=== PATIENT | female | born 1960 | race Caucasian/White ===

== ENCOUNTER 2017-03-03 16:00 | Outpatient (RCR) | payer MEDICARE, SELFPAY ==
--- NOTE | 2017-01-17 17:13 | HP.PTEVAL ---
Patient's Visit Information KAYLEE MANTILLA is a 56 year old F referred to Physical Therapy by Out of Town Doctor LESLEE MONIQUE with a diagnosis of Sceleroderma. 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 Pt reports she was dx'd just last year. Pt reports in 2003-, she began to notice difficulty with standing and walking secondary to LBP. Pt has been on dialysis for over 23 years due to kidney disease. Pt reports she would like to get on a transplant list. She was told she had to first stop smoking, she had to move around better, and she had to see a service vehicle operator. Pt reports now her goal is to be able to walk better and feel better overall. Pt reports sleep diff secondary to pain. Pt notes good sensation in her LE's. overall body pain this date is 08/16 - Pain overall body pain Pain Intensity (Out of 10): 4 Pain Intensity Range: 4 - Objective Neuro: B LE sensation is WNL to light touch. B pat tendon reflex= 1/3. Gait: Pt is able to ambulate approximatly 120' until feeling exhausted and needing to sit. LE MMT: B LE's are grossly 4+/5 throughout. B UE's are much weaker 3/5. Stairs: Pt was able to negotiate 2 flights of stairs until needing to rest. - Goals Goal 1:: Increase B UE and LE strength x 1 grade to aid with Icreasing ease with stairs Goal Time Frame: 4-6 Weeks Goal 2:: Pt will be able to negotiate 1 flight of stairs x 2 reps to aid with increasing I in community Goal Time Frame: 4-6 Weeks Goal 3:: Pt will be able to ambulate 340 feet to aid with promoting community ambulation Goal Time Frame: 4-6 Weeks Goal 4:: I with HEP Goal Time Frame: 4-6 Weeks - Rehabilitation Potential Physical Therapy Diagnosis: B UE and LE weakness and limited mobility secondary to debilitation from scelaroderma Rehabilitation Potential: Good - Anticipated Interventions Patient/Client Instruction: Educate patient on: Condition, Plan of Care For the Purpose of:: To improve self management Therapeutic Exercise to Include: Strength training, Endurance training, Balance training, Gait and locomotor training, Dynamic Lumbar Stabilization, Scapular Strength/Stabilization For the Purpose of:: To decrease pain, To improve muscle performance and motor function, To increase tolerance to activity/condition/position Cryotherapy (ice pack, ice massage): Yes For the Purpose of:: To decrease pain Thank you for the opportunity to evaluate your patient. For Medicare and Medicare HMO plans, please review the plan of care and approve it. It will need to be FAXED BACK to us at [phone] for Medicare purposes. Please let me know if there are questions or concerns regarding this plan of care. Physician Signature: Date:
--- NOTE | 2017-06-02 16:34 | HP.PT.NRP ---
HP - Discharge Summary (1) - Patient Information KAYLEE MANTILLA was seen in my office for initial evaluation on 01/17/17. The following Plan of Care was established for this patient: Initial Frequency: 2-3x /Week Initial Duration: 4-6 Weeks - Anticipated Interventions Patient/Client Instruction: Educate patient on: Condition, Plan of Care For the Purpose of:: To improve self management Therapeutic Exercise to Include: Strength training, Endurance training, Balance training, Gait and locomotor training, Dynamic Lumbar Stabilization, Scapular Strength/Stabilization For the Purpose of:: To decrease pain, To improve muscle performance and motor function, To increase tolerance to activity/condition/position Cryotherapy (ice pack, ice massage): Yes For the Purpose of:: To decrease pain This patient was last seen in our office . Pertinent comments regarding their Physical therapy will appear below: Pt was treated for overall debility for 13 visits through the date of 03/03/17. Pt has not returned through todays date, and is therefore discontinued at this time. At this point I will be discontinuing this patient from physical therapy. I would be happy to see this patient again in the future if found appropriate by the physician. Thank you! Luis A Siddiqi, PT,
== END 2017-03-03 19:00 | disposition home or self-care (01) ==
LOC: PT 16:00
DX: L94.0 Localized scleroderma [morphea] (principal); R20.8 Other disturbances of skin sensation; N18.6 End stage renal disease; G89.4 Chronic pain syndrome
CPT/HCPCS: 97110; 97163; 97530; G8978; G8979

== ENCOUNTER → 2017-06-10 14:08 | Outpatient (CLI) | payer MEDICARE, SELFPAY ==
[2017-06-10 13:46] VITALS: BP 90/52; BMI 25.6
--- NOTE | 2017-06-10 14:11 | RAD_ITS ---
STUDY: X-RAY CHEST REASON FOR EXAM: Female, 56 years old. Severe shortness of breath and dyspnea. TECHNIQUE: PA and lateral views of the chest. COMPARISON: None. FINDINGS: A left-sided double catheter is in place. The tip is in the right atrium. A vascular stent is seen in the left apex. Hyperinflation. Mild degree of vascular congestion and CHF. There is no demonstrated pleural abnormality. Sternal cerclage wires are present from a prior sternotomy. Prior mitral valve replacement. Normal mediastinum and zunilda. Normal visualized pulmonary arteries. There is atherosclerotic calcification of the aortic arch with tortuosity. There is demineralization of the osseous structures. Increased kyphosis. Normal visualized ribs, clavicles, and shoulders. There is no demonstrated abnormality of the visualized soft tissue structures of the upper abdomen. RAD/Chest PA and Lateral IMPRESSION: Vascular congestion and mild CHF. Electronically Signed: Ben Small MD at 14:41 EST Tel [phone], Service support ,
== END ==
PROVIDERS: Visit Provider Physician Assistant Surgical
DX: R06.02 Shortness of breath (principal); R06.00 Dyspnea, unspecified; R09.89 Other specified symptoms and signs involving the circulatory and respiratory systems
CPT/HCPCS: 71046

== ENCOUNTER 2018-06-28 12:12 | Emergency (ER) | payer MEDICARE, SELFPAY ==
[2017-06-10 13:46] VITALS: BMI 25.6
[2018-06-28 12:16] VITALS: BP 107/49; PULSE 79; RESP 18; TEMP 36.6; O2SAT 100; BMI 25.2
--- NOTE | 2018-06-28 12:26 | ED.VISSUMM ---
- ER Visit Summary Date of Service: 06/28/18 Chief Complaint: Vomiting blood History of Present Illness: The patient is a 57 F history of recent double bypass and mitral valve replaced with biological valve at [facility] at the end of May. Also has a history of coronary disease and pacemaker. History of end-stage renal disease and was dialyzed today. Patient is on Coumadin. States she is had nausea vomiting this morning of coffee-ground material. Also states she has black stool. Denies any bright red blood. She denies any history of prior GI bleeds. She states she threw up coffee-ground material on the first episode of vomiting. Physical Examination: Middle-aged female. Vital signs are stable and afebrile. Initial blood pressure 107/49. HEENT exam unremarkable. Neck nontender. Lungs clear to auscultation bilaterally. Heart regular rhythm no appreciable murmur at this time. Abdomen soft. Nondistended. Normal bowel sounds no peritoneal signs. Gastric or right upper quadrant tenderness. No signs of obstruction. Chest wall well-healing sternotomy incision and left chest wall pacemaker incision. Both are dry and clean. Patient is moving all 4 extremities. She has trace edema on both legs. Right upper arm dialysis shunt has a thrill. Neurologically she is awake and alert. Test Results: White count 8. Hemoglobin is 6.5. I spoke to 1 of the physicians at and the patient's hemoglobin prior to discharge there on June 20 was 7.2. Gap of 9. Creatinine 3.17 she is a dialysis patient. Liver enzymes unremarkable. Lipase normal. She is on Coumadin her INR is 2.0. Emergency Department Course and Treatment: Patient treated with IV Zofran for nausea. IV for Protonix for suspected upper GI bleed. She will be typed and screened for blood if necessary for transfusion. Discussed with patient and she does not want to be transfused unless absolutely necessary. Also with her recent hemoglobin is 7.2 he does not seem to be a significant drop at this time we can hold off. Treatment Plan: I spoke to the transfer line, nephrology and ICU and eventually the emergency department at . Due to their bed status the patient be transferred to their emergency department. Disposition: Admitted Impression: Acute upper GI bleed anticoagulated on Coumadin Status post CABG and biological valve replacement History of end-stage renal disease with dialysis Acute on chronic anemia Anticoagulated on Coumadin This note was generated with Mamad[employer] dictation software. It may contain incorrect words, spelling, and punctuation that were not noted in review of the chart prior to signing ED Disposition - Plan for ED Patient: Referrals: NOT,DEFINED [NON-STAFF] -
[2018-06-28] MEDS: Ondansetron 4 MG/2 ML Vial IV ×2 (13:29→16:09)
[2018-06-28 13:37] LABS: Absolute Lymphocyte Count 1.22 X10^3/ul (0.83-4.51); Absolute Neutrophil Count 6.3 X10^3/uL (2.0-7.7); Basophil# 0.04 X10^3/uL; Basophil% 0.5 % (0-1); Eosinophil# 0.02 X10^3/uL; Eosinophils% 0.2 % (0-5); Hematocrit 21.8 % (37-47); Hemoglobin 6.5 g/dl (12.0-15.0); Lymphocyte # 1.22 X10^3/ul (4.0); Lymphocyte % 14.5 % (19-41); Mean Corp Hgb Conc 29.8 g/gl (32-36); Mean Corpuscular Hgb 31.9 pg (27.0-32.0); Mean Corpuscular Volume 106.9 fL (81-99); Mean Platelet Vol. 9.6 fl (6.2-12.0); Monocyte# 0.82 X10^3/uL; Monocyte% 9.8 % (0-10); Neutrophil # 6.29 X10^3/uL (2.7-7.7); Neutrophil % 74.8 % (47-70); Platelet Count 261 K/mm3 (150-450); Prothrombin Time (Protime)PT. 22.7 SECONDS (11.7-14.9); RBC Distribution Width CV 19.1 % (11.6-14.6); RBC Distribution Width SD 73.3 fl (35.1-43.9); Red Blood Count 2.04 M/mm3 (4.2-5.4); White Blood Count 8.4 K/mm3 (4.4-11.0)
[2018-06-28 13:43] LABS: Differential Indicated SCAN CRITERIA MET; POSITIVE COUNT NO; POSITIVE DIFFERENTIAL NO; POSITIVE MORPHOLOGY YES
[2018-06-28 13:47] LABS: AST(SGOT) 17 U/L (15-37); Alanine Aminotransfer ALT/SGPT 16 U/L (13-56); Albumin, Serum 2.5 g/dL (3.2-5.0); Alkaline Phosphatase 197 U/L (45-117); Anion Gap 9 (5-15); BUN 19 mg/dL (7-18); Bilirubin, Direct 0.24 mg/dL (0.00-0.30); Calcium,Total 7.2 mg/dL (8.5-10.1); Chloride 96 mmol/L (98-107); Creatinine, Serum 3.17 mg/dL (0.55-1.02); EST Glomerular Filtration Rate 16 mL/min (>60); Est Glom Filt Rate - Afr Amer 19 mL/min (>60); Estimated Creatinine Clearance 18.55 ml/min; Globulin 4.1 g/dL (2.2-4.2); Glucose 97 mg/dL (74-106); Lipase 179 U/L (73-393); Potassium 3.6 mmol/L (3.5-5.1); Protein, Total 6.6 g/dL (6.4-8.2); Sodium Level 138 mmol/L (136-145)
--- NOTE | 2018-06-28 14:17 | ED.RN ---
[facility] transfer line contacted.
--- NOTE | 2018-06-28 16:04 | CM.ED ---
Social Work Note Met with pt's brother who has accompanied her to the ED today. Pt recently underwent cardiac surgeries at [facility] and will be transferring back there today. Upon her discharge from it was recommended that she go to rehab and her brother states that at the time she declined as she had negative connotation associated with going to a snf. States that they were going to have her come here and then all of a sudden could not take as she was on dialysis. Explained that unfortunately, to this marketing underwriter's knowledge, that is an overall policy that TCU maintains regarding the dialysis. Pt's brother states he understands, but it was unfair of them to dangle it in front of us and then take it away. Educate to alternative SNFs and provide information on the patient advocate per pt's request. No further needs at this time. Kaia Berrios, [employer], DORIAN
[2018-06-28 16:12] VITALS: BP 101/66; PULSE 82; RESP 17; O2SAT 98
[2018-06-28] MEDS: proMETHazine 25 MG/ML Syringe 12.5 MG IV (17:34)
[2018-06-28 18:18] VITALS: BP 103/76; BP 96/58; PULSE 78; RESP 20; O2SAT 96
== END 2018-06-28 18:24 | disposition home or self-care (01) ==
LOC: ED 13:09
PROVIDERS: Emergency Provider Emergency Medicine
DX: K92.2 Gastrointestinal hemorrhage, unspecified (principal); D64.9 Anemia, unspecified; N18.6 End stage renal disease; I25.10 Atherosclerotic heart disease of native coronary artery without angina pectoris; Z72.0 Tobacco use; Z99.2 Dependence on renal dialysis; Z79.82 Long term (current) use of aspirin; Z79.01 Long term (current) use of anticoagulants; Z79.899 Other long term (current) drug therapy; Z95.2 Presence of prosthetic heart valve; Z95.1 Presence of aortocoronary bypass graft
CPT/HCPCS: 80048; 80076; 83690; 85025; 85610; 86850; 86900; 86920; 86922; 96365; 96366; 96375; 96376; 99285; J7030; A4216; J2405; J3490

== ENCOUNTER 2018-08-04 12:15 | Outpatient (RCR) | payer MEDICARE, SELFPAY ==
[2018-07-07 11:37] VITALS: BP 147/90; PULSE 80; RESP 16; TEMP 37; BMI 23.3
[2018-07-07 17:24] LABS: M R Staph aureus DNA By PCR Negative (Negative); Probe Check PASS; Specimen Processing Control PASS; Staph aureus DNA By PCR NEGATIVE (Negative)
--- NOTE | 2018-07-07 17:24 | PCM.WC.HP ---
(1) Stage II pressure ulcer of left buttock Status: Chronic Current Visit: Yes Code(s): L89.322 - Pressure ulcer of left buttock, stage 2 (2) Nonhealing nonsurgical wound with fat layer exposed Status: Chronic Current Visit: Yes Code(s): T14.8XXA - Other injury of unspecified body region, initial encounter (3) Dependence on renal dialysis Status: Chronic Current Visit: Yes Code(s): Z99.2 - Dependence on renal dialysis (4) CAD (coronary artery disease), autologous vein bypass graft Status: Chronic Current Visit: Yes Qualifiers: Associated angina: angina presence unspecified Qualified Code(s): I25.810 - Atherosclerosis of coronary artery bypass graft(s) without angina pectoris Code(s): I25.810 - Atherosclerosis of coronary artery bypass graft(s) without angina pectoris (5) H/O mitral valve replacement Status: Chronic Current Visit: Yes Code(s): Z95.2 - Presence of prosthetic heart valve (6) Current smoker Status: Chronic Current Visit: Yes Code(s): F17.200 - Nicotine dependence, unspecified, uncomplicated (7) H/O lung transplant Status: Chronic Current Visit: Yes Code(s): Z94.2 - Lung transplant status History of Present Illness Date of Service: 07/07/18 Chief Complaint: ulcer of left buttock and nonhealing surgical wound right leg History of Wound: Manuel is a 57 yo female who is on chronic dialysis and s/p recent CABG x 1 and mitral valve replacement that is here today for evaluation of a stage 2 pressure ulcer of her left buttock and nonhealing surgical wound of right medial thigh. She underwent CABG and mitral valve replacement in the beginning of May and developed a pressure ulcer of her left buttock while hospitalized. She has not been using anything on the ulcer. She also is concerned about the surgical site where her vein was harvested for her bypass graft. She follows up with the surgeon at the end of the month. She is on chronic dialysis due to nephrectomies. She also has a h/o lung transplant. She denies any fever, chills or erythema or odor. Past Medical History Past Medical History: Chronic Problems (Last Reviewed 06/10/17 @ 13:50 by Mel Peralta) Stage II pressure ulcer of left buttock (Chronic) Nonhealing nonsurgical wound with fat layer exposed (Chronic) Dependence on renal dialysis (Chronic) CAD (coronary artery disease), autologous vein bypass graft (Chronic) H/O mitral valve replacement (Chronic) Current smoker (Chronic) H/O lung transplant (Chronic) Surgical History: coronary bypass surgery, - - lung transplant, nephrectomy, A-V fistula for dialysis Allergies/Adverse Reactions: Allergies diazepam [From Valium] Allergy (Verified 06/10/17 13:47) Unknown Gadolinium-MRI Contrast Medium Allergy (Verified 06/10/17 13:47) Unknown vancomycin Allergy (Verified 06/28/18 12:16) Unknown IV DYE Allergy (Uncoded 06/28/18 12:16) Unknown Home Medications: Ambulatory Orders Medication Instructions Recorded aspirin 81 mg chewable tablet 81 mg PO ONCE 06/10/17 gabapentin 100 mg capsule 200 mg PO QHS 90 Days #180 06/10/17 Atorvastatin Calcium 10 mg PO DAILY 06/28/18 Mycophenolate Mofetil [Cellcept] 500 mg PO BID 06/28/18 Pantoprazole Sodium [Protonix] 40 mg PO DAILY 07/07/18 Sevelamer Carbonate [Renvela] 3,200 mg BC TID 07/07/18 Vit B Cplx C No.13/Folic AC/D3 1 each PO DAILY 07/07/18 [Nephrocaps Qt Tablet] - Family History Maternal No pertinent history Paternal No pertinent history Lives: Alone Smoking Status: Current every day smoker Tobacco Use: Cigarettes Alcohol: None Drugs: None Review of Systems Constitutional: Denies: Chills, Fever, Weight Change Eyes: Denies: Pain, Vision Change HEENT: Denies: Difficulty Hearing, Difficulty Swallowing, Sinus Congestion Cardiovascular: Denies: Chest Pain, Palpitations Respiratory: Denies: Cough, Shortness of Breath Gastrointestinal: Denies: Diarrhea, Nausea, Vomiting Genitourinary: Denies: Dysuria, Hematuria Musculoskeletal: Reports: Leg Pain Skin: Reports: Wounds Hematologic/ Lymphatic: Denies: Easy Bruising, Easy Bleeding - Physical Exam Vital Signs Temp Pulse Resp BP 98.6 F 80 16 147/90 H 07/07/18 11:37 07/07/18 11:37 07/07/18 11:37 07/07/18 11:37 General: Alert, Oriented x3, Cooperative, No apparent distress HEENT: Atraumatic, Normocephalic Oral: Moist Mucosa Neck: Supple Lungs: Clear to auscultation Cardiovascular: Regular rate, Regular Rhythm Abdomen: Soft, Non Tender Extremities: Edema Skin: Ulcer/ Wound Wound Measurements and Assessment - Nurse 1 - General Ulcer Measurement Start: 07/07/18 11:34 Freq: Status: Active Protocol: Activity Type Activity Date Activity User E-Sign Co-Sign Detail Recorded Client Recorded Date Recorded By Document 07/07/18 11:37 [facility] [id number] 07/07/18 11:50 [facility] 07/07/18 11:37 Wound Center Nurse 1 [Ulcer Assessment] #1- LT BUTTOCK -Combined with other wound No -Current Size (cm) - Length 1.5 -Current Size (cm) - Width 2 -Current Size (cm) - Depth 0.1 -Total Square Cm 3.0 -Date of Last Picture (Recall this 07/07/18 field) -Photo Taken Yes -Epithelialization None Present -Tunneling No -Undermining/Tunneling No -Circular Undermining No -Exudate Amt None Present -Wound Margin Distinct, Outline Attached -Granulation Amt None Present (0 %) -Slough/Fibrin Yes -Necrosis Amt Large (67-100%) -Necrotic Tissue Type Adherent Slough -Structure Exposed N/A -Texture (Natty-wound Skin Appearance) Scarring -Moisture (Natty-wound Skin Appearance Assessed ) -Color (Natty-wound Skin Appearance) Assessed Erythema -Temperature (Natty-wound Skin No Abnormality Appearance) (Pt Warm) -Tenderness on Palpation (Natty-wound No Skin Appearance) -Ulcer Cleansing Rinsed/ Irrigated with Saline -Foul Odor after Cleansing No -Anesthetic Used 5% Lidocaine Gel WC - Nurse 2 - General Ulcer CM Notes Start: 07/07/18 11:34 Freq: Status: Active Protocol: Activity Type Activity Date Activity User E-Sign Co-Sign Detail Recorded Client Recorded Date Recorded By Document 07/07/18 12:54 DV [id number] 07/07/18 13:02 DV 07/07/18 12:54 Wound Center Nurse 2 [Procedure/Treatment] #2 [facility] RLE -Time 12:57 -Correct Patient Yes -Correct Side, Site, Position Yes -Correct Procedure Yes -Procedure Performed Yes -Type of Procedure Debridement -Clinical Debridement Subcutaneous -Post Debridement Size (cm) - Length 6.5 -Post Debridement Size (cm) - Width 0.6 -Post Debridement Size (cm) - Depth 0.1 -Total Square Cm 3.90 -Ulcer Cleansing Rinsed/ Irrigated with Saline -Foul Odor after Cleansing No -Bioengineered Tissue No -Bleeding Controlled with Pressure -Offloading No -Treatment Response Procedure Tolerated Well #1- LT BUTTOCK -Time 12:56 -Correct Patient Yes -Correct Side, Site, Position Yes -Correct Procedure Yes -Procedure Performed Yes -Type of Procedure Debridement -Clinical Debridement Subcutaneous -Post Debridement Size (cm) - Length 1.6 -Post Debridement Size (cm) - Width 1.8 -Post Debridement Size (cm) - Depth 0.1 -Total Square Cm 2.88 -Wound/Ulcer Outcome Not Healed -Ulcer Cleansing Rinsed/ Irrigated with Saline -Foul Odor after Cleansing No -Bioengineered Tissue No -Offloading No -Treatment Response Procedure Tolerated Well [See Physician Procedure note for Specifics] Pain Scale: 0-10 Numeric [Pain] -Is Patient Pain Free? Yes Psych/Mental Status: Normal Affect, Appropriate Debridement Note Post-Debridement Measurements/Treatment WC - Nurse 2 - General Ulcer CM Notes Start: 07/07/18 11:34 Freq: Status: Active Protocol: Activity Type Activity Date Activity User E-Sign Co-Sign Detail Recorded Client Recorded Date Recorded By Document 07/07/18 12:54 DV [id number] 07/07/18 13:02 DV 07/07/18 12:54 Wound Center Nurse 2 #2 [facility] RLE -Time 12:57 -Correct Patient Yes -Correct Side, Site, Position Yes -Correct Procedure Yes -Procedure Performed Yes -Type of Procedure Debridement -Clinical Debridement Subcutaneous -Post Debridement Size (cm) - Length 6.5 -Post Debridement Size (cm) - Width 0.6 -Post Debridement Size (cm) - Depth 0.1 -Total Square Cm 3.90 -Ulcer Cleansing Rinsed/ Irrigated with Saline -Foul Odor after Cleansing No -Bioengineered Tissue No -Bleeding Controlled with Pressure -Offloading No -Treatment Response Procedure Tolerated Well #1- LT BUTTOCK -Time 12:56 -Correct Patient Yes -Correct Side, Site, Position Yes -Correct Procedure Yes -Procedure Performed Yes -Type of Procedure Debridement -Clinical Debridement Subcutaneous -Post Debridement Size (cm) - Length 1.6 -Post Debridement Size (cm) - Width 1.8 -Post Debridement Size (cm) - Depth 0.1 -Total Square Cm 2.88 -Wound/Ulcer Outcome Not Healed -Ulcer Cleansing Rinsed/ Irrigated with Saline -Foul Odor after Cleansing No -Bioengineered Tissue No -Offloading No -Treatment Response Procedure Tolerated Well Pain Scale: 0-10 Numeric Is Patient Pain Free? Yes Wound debrided: medial RLE Laterality: Right No debridement was completed today - Additional Wound Wound debrided: left buttock Laterality: Left Wound Grade/Stage: Stage 2 Type of Debridement: Excisional debridement Anesthesia Used: 4% Lidocaine Solution, 5% Lidocaine Gel Depth: Down to and including healthy tissue, in the subcutaneous layer Percentage of wound debrided: 100 Instrument Used: 5mm curette Tissue Removed: yellow slough, devitalized tissue Severity: Fat Layer Exposed Amount of bleeding with debridement: Mild Bleeding Controlled with: Compression and gauze Patient tolerated procedure: Patient tolerated procedure well Assessment/Plan Active Problems (Last Reviewed 06/10/17 @ 13:50 by Mel Peralta) Stage II pressure ulcer of left buttock (Chronic) Nonhealing nonsurgical wound with fat layer exposed (Chronic) Dependence on renal dialysis (Chronic) CAD (coronary artery disease), autologous vein bypass graft (Chronic) H/O mitral valve replacement (Chronic) Current smoker (Chronic) H/O lung transplant (Chronic) Assessment: stage 2 pressure ulcer left buttock. nonhealing surgical wound medial right LE Plan: Manuel's wound/ulcer were evaluated and debrided today. Wound culture of her left buttock was taken and will treat based on results. Will treat her wounds and ulcer with Sammi. Discussed offloading of her buttocks and increased protein intake to facilitate healing. Encouraged smoking cessation. F/U in 1 week.
--- NOTE | 2018-07-07 17:45 | HP.PCM_ITS ---
(1) Stage II pressure ulcer of left buttock Status: Chronic Current Visit: Yes Code(s): L89.322 - Pressure ulcer of left buttock, stage 2 (2) Nonhealing nonsurgical wound with fat layer exposed Status: Chronic Current Visit: Yes Code(s): T14.8XXA - Other injury of unspecified body region, initial encounter (3) Dependence on renal dialysis Status: Chronic Current Visit: Yes Code(s): Z99.2 - Dependence on renal dialysis (4) CAD (coronary artery disease), autologous vein bypass graft Status: Chronic Current Visit: Yes Qualifiers: Associated angina: angina presence unspecified Qualified Code(s): I25.810 - Atherosclerosis of coronary artery bypass graft(s) without angina pectoris Code(s): I25.810 - Atherosclerosis of coronary artery bypass graft(s) without angina pectoris (5) H/O mitral valve replacement Status: Chronic Current Visit: Yes Code(s): Z95.2 - Presence of prosthetic heart valve (6) Current smoker Status: Chronic Current Visit: Yes Code(s): F17.200 - Nicotine dependence, unspecified, uncomplicated (7) H/O lung transplant Status: Chronic Current Visit: Yes Code(s): Z94.2 - Lung transplant status History of Present Illness Date of Service: 07/07/18 Chief Complaint: ulcer of left buttock and nonhealing surgical wound right leg History of Wound: Manuel is a 57 yo female who is on chronic dialysis and s/p recent CABG x 1 and mitral valve replacement that is here today for evaluation of a stage 2 pressure ulcer of her left buttock and nonhealing surgical wound of right medial thigh. She underwent CABG and mitral valve replacement in the [facility] of May and developed a pressure ulcer of her left buttock while hospitalized. She has not been using anything on the ulcer. She also is concerned about the surgical site where her vein was harvested for her bypass graft. She follows up with the surgeon at the end of the month. She is on chronic dialysis due to nephrectomies. She also has a h/o lung transplant. She denies any fever, chills or erythema or odor. Past Medical History Past Medical History: Chronic Problems (Last Reviewed 06/10/17 @ 13:50 by Mel Peralta) Stage II pressure ulcer of left buttock (Chronic) Nonhealing nonsurgical wound with fat layer exposed (Chronic) Dependence on renal dialysis (Chronic) CAD (coronary artery disease), autologous vein bypass graft (Chronic) H/O mitral valve replacement (Chronic) Current smoker (Chronic) H/O lung transplant (Chronic) Surgical History: coronary bypass surgery, - - lung transplant, nephrectomy, A-V fistula for dialysis Allergies/Adverse Reactions: Allergies diazepam [From Valium] Allergy (Verified 06/10/17 13:47) Unknown Gadolinium-MRI Contrast Medium Allergy (Verified 06/10/17 13:47) Unknown vancomycin Allergy (Verified 06/28/18 12:16) Unknown IV DYE Allergy (Uncoded 06/28/18 12:16) Unknown Home Medications: Ambulatory Orders Medication Instructions Recorded aspirin 81 mg chewable tablet 81 mg PO ONCE 06/10/17 gabapentin 100 mg capsule 200 mg PO QHS 90 Days #180 06/10/17 Atorvastatin Calcium 10 mg PO DAILY 06/28/18 Mycophenolate Mofetil [Cellcept] 500 mg PO BID 06/28/18 Pantoprazole Sodium [Protonix] 40 mg PO DAILY 07/07/18 Sevelamer Carbonate [Renvela] 3,200 mg BC TID 07/07/18 Vit B Cplx C No.13/Folic AC/D3 1 each PO DAILY 07/07/18 [Nephrocaps Qt Tablet] - Family History Maternal No pertinent history Paternal No pertinent history Lives: Alone Smoking Status: Current every day smoker Tobacco Use: Cigarettes Alcohol: None Drugs: None Review of Systems Constitutional: Denies: Chills, Fever, Weight Change Eyes: Denies: Pain, Vision Change HEENT: Denies: Difficulty Hearing, Difficulty Swallowing, Sinus Congestion Cardiovascular: Denies: Chest Pain, Palpitations Respiratory: Denies: Cough, Shortness of Breath Gastrointestinal: Denies: Diarrhea, Nausea, Vomiting Genitourinary: Denies: Dysuria, Hematuria Musculoskeletal: Reports: Leg Pain Skin: Reports: Wounds Hematologic/ Lymphatic: Denies: Easy Bruising, Easy Bleeding - Physical Exam Vital Signs Temp Pulse Resp BP 98.6 F 80 16 147/90 H 07/07/18 11:37 07/07/18 11:37 07/07/18 11:37 07/07/18 11:37 General: Alert, Oriented x3, Cooperative, No apparent distress HEENT: Atraumatic, Normocephalic Oral: Moist Mucosa Neck: Supple Lungs: Clear to auscultation Cardiovascular: Regular rate, Regular Rhythm Abdomen: Soft, Non Tender Extremities: Edema Skin: Ulcer/ Wound Wound Measurements and Assessment - Nurse 1 - General Ulcer Measurement Start: 07/07/18 11:34 Freq: Status: Active Protocol: Activity Type Activity Date Activity User E-Sign Co-Sign Detail Recorded Client Recorded Date Recorded By Document 07/07/18 11:37 [facility] [id number] 07/07/18 11:50 [facility] 07/07/18 11:37 Wound Center Nurse 1 [Ulcer Assessment] #1- LT BUTTOCK -Combined with other wound No -Current Size (cm) - Length 1.5 -Current Size (cm) - Width 2 -Current Size (cm) - Depth 0.1 -Total Square Cm 3.0 -Date of Last Picture (Recall this 07/07/18 field) -Photo Taken Yes -Epithelialization None Present -Tunneling No -Undermining/Tunneling No -Circular Undermining No -Exudate Amt None Present -Wound Margin Distinct, Outline Attached -Granulation Amt None Present (0 %) -Slough/Fibrin Yes -Necrosis Amt Large (67-100%) -Necrotic Tissue Type Adherent Slough -Structure Exposed N/A -Texture (Natty-wound Skin Appearance) Scarring -Moisture (Natty-wound Skin Appearance Assessed ) -Color (Natty-wound Skin Appearance) Assessed Erythema -Temperature (Natty-wound Skin No Abnormality Appearance) (Pt Warm) -Tenderness on Palpation (Natty-wound No Skin Appearance) -Ulcer Cleansing Rinsed/ Irrigated with Saline -Foul Odor after Cleansing No -Anesthetic Used 5% Lidocaine Gel WC - Nurse 2 - General Ulcer CM Notes Start: 07/07/18 11:34 Freq: Status: Active Protocol: Activity Type Activity Date Activity User E-Sign Co-Sign Detail Recorded Client Recorded Date Recorded By Document 07/07/18 12:54 DV [id number] 07/07/18 13:02 DV 07/07/18 12:54 Wound Center Nurse 2 [Procedure/Treatment] #2 [facility] RLE -Time 12:57 -Correct Patient Yes -Correct Side, Site, Position Yes -Correct Procedure Yes -Procedure Performed Yes -Type of Procedure Debridement -Clinical Debridement Subcutaneous -Post Debridement Size (cm) - Length 6.5 -Post Debridement Size (cm) - Width 0.6 -Post Debridement Size (cm) - Depth 0.1 -Total Square Cm 3.90 -Ulcer Cleansing Rinsed/ Irrigated with Saline -Foul Odor after Cleansing No -Bioengineered Tissue No -Bleeding Controlled with Pressure -Offloading No -Treatment Response Procedure Tolerated Well #1- LT BUTTOCK -Time 12:56 -Correct Patient Yes -Correct Side, Site, Position Yes -Correct Procedure Yes -Procedure Performed Yes -Type of Procedure Debridement -Clinical Debridement Subcutaneous -Post Debridement Size (cm) - Length 1.6 -Post Debridement Size (cm) - Width 1.8 -Post Debridement Size (cm) - Depth 0.1 -Total Square Cm 2.88 -Wound/Ulcer Outcome Not Healed -Ulcer Cleansing Rinsed/ Irrigated with Saline -Foul Odor after Cleansing No -Bioengineered Tissue No -Offloading No -Treatment Response Procedure Tolerated Well [See Physician Procedure note for Specifics] Pain Scale: 0-10 Numeric [Pain] -Is Patient Pain Free? Yes Psych/Mental Status: Normal Affect, Appropriate Debridement Note Post-Debridement Measurements/Treatment WC - Nurse 2 - General Ulcer CM Notes Start: 07/07/18 11:34 Freq: Status: Active Protocol: Activity Type Activity Date Activity User E-Sign Co-Sign Detail Recorded Client Recorded Date Recorded By Document 07/07/18 12:54 DV [id number] 07/07/18 13:02 DV 07/07/18 12:54 Wound Center Nurse 2 #2 [facility] RLE -Time 12:57 -Correct Patient Yes -Correct Side, Site, Position Yes -Correct Procedure Yes -Procedure Performed Yes -Type of Procedure Debridement -Clinical Debridement Subcutaneous -Post Debridement Size (cm) - Length 6.5 -Post Debridement Size (cm) - Width 0.6 -Post Debridement Size (cm) - Depth 0.1 -Total Square Cm 3.90 -Ulcer Cleansing Rinsed/ Irrigated with Saline -Foul Odor after Cleansing No -Bioengineered Tissue No -Bleeding Controlled with Pressure -Offloading No -Treatment Response Procedure Tolerated Well #1- LT BUTTOCK -Time 12:56 -Correct Patient Yes -Correct Side, Site, Position Yes -Correct Procedure Yes -Procedure Performed Yes -Type of Procedure Debridement -Clinical Debridement Subcutaneous -Post Debridement Size (cm) - Length 1.6 -Post Debridement Size (cm) - Width 1.8 -Post Debridement Size (cm) - Depth 0.1 -Total Square Cm 2.88 -Wound/Ulcer Outcome Not Healed -Ulcer Cleansing Rinsed/ Irrigated with Saline -Foul Odor after Cleansing No -Bioengineered Tissue No -Offloading No -Treatment Response Procedure Tolerated Well Pain Scale: 0-10 Numeric Is Patient Pain Free? Yes Wound debrided: medial RLE Laterality: Right No debridement was completed today - Additional Wound Wound debrided: left buttock Laterality: Left Wound Grade/Stage: Stage 2 Type of Debridement: Excisional debridement Anesthesia Used: 4% Lidocaine Solution, 5% Lidocaine Gel Depth: Down to and including healthy tissue, in the subcutaneous layer Percentage of wound debrided: 100 Instrument Used: 5mm curette Tissue Removed: yellow slough, devitalized tissue Severity: Fat Layer Exposed Amount of bleeding with debridement: Mild Bleeding Controlled with: Compression and gauze Patient tolerated procedure: Patient tolerated procedure well Assessment/Plan Active Problems (Last Reviewed 06/10/17 @ 13:50 by Mel Peralta) Stage II pressure ulcer of left buttock (Chronic) Nonhealing nonsurgical wound with fat layer exposed (Chronic) Dependence on renal dialysis (Chronic) CAD (coronary artery disease), autologous vein bypass graft (Chronic) H/O mitral valve replacement (Chronic) Current smoker (Chronic) H/O lung transplant (Chronic) Assessment: stage 2 pressure ulcer left buttock. nonhealing surgical wound medial right LE Plan: Manuel's wound/ulcer were evaluated and debrided today. Wound culture of her left buttock was taken and will treat based on results. Will treat her wounds and ulcer with Sammi. Discussed offloading of her buttocks and increased protein intake to facilitate healing. Encouraged smoking cessation. F/U in 1 week.
[2018-07-14 12:36] VITALS: BP 117/70; PULSE 81; RESP 16; TEMP 37.2; BMI 23.3
--- NOTE | 2018-07-14 17:10 | PN.PCM_ITS ---
(1) Stage II pressure ulcer of left buttock Status: Chronic Current Visit: Yes Code(s): L89.322 - Pressure ulcer of left buttock, stage 2 (2) Nonhealing nonsurgical wound with fat layer exposed Status: Chronic Current Visit: Yes Code(s): T14.8XXA - Other injury of unspecified body region, initial encounter (3) Dependence on renal dialysis Status: Chronic Current Visit: Yes Code(s): Z99.2 - Dependence on renal dialysis (4) CAD (coronary artery disease), autologous vein bypass graft Status: Chronic Current Visit: Yes Qualifiers: Associated angina: angina presence unspecified Qualified Code(s): I25.810 - Atherosclerosis of coronary artery bypass graft(s) without angina pectoris Code(s): I25.810 - Atherosclerosis of coronary artery bypass graft(s) without angina pectoris (5) H/O mitral valve replacement Status: Chronic Current Visit: Yes Code(s): Z95.2 - Presence of prosthetic heart valve (6) Current smoker Status: Chronic Current Visit: Yes Code(s): F17.200 - Nicotine dependence, unspecified, uncomplicated (7) H/O lung transplant Status: Chronic Current Visit: Yes Code(s): Z94.2 - Lung transplant status Type of Wound Date of Service: 07/14/18 Chief Complaint: ulcer of left buttock and nonhealing surgical wound right leg History of Wound: Manuel is a 57 yo female who is on chronic dialysis and s/p recent CABG x 1 and mitral valve replacement that is here today for evaluation of a stage 2 pressure ulcer of her left buttock and nonhealing surgical wound of right medial thigh. She underwent CABG and mitral valve replacement in the beginning of May and developed a pressure ulcer of her left buttock while hospitalized. She has not been using anything on the ulcer. She also is concerned about the surgical site where her vein was harvested for her bypass graft. She follows up with the surgeon at the end of the month. She is on chronic dialysis due to nephrectomies. She also has a h/o lung transplant. She denies any fever, chills or erythema or odor. Progress of Wound: Manuel is here in follow up for pressure ulcer of her left buttock and nonhealing surgical wounds of her right medial lower leg. She tolerated dressings and has been trying to offload her buttock as much as possible. She has increased her protein intake. There were isssues with her receiving her supplies. She has had moderate amount of drainage from her ulcer/wounds and they are full thickness in depth. Wound cultures were negative. She denies increased pain, fever or chills. - Physical Exam Vital Signs Temp Pulse Resp BP 98.9 F 81 16 117/70 07/14/18 12:36 07/14/18 12:36 07/14/18 12:36 07/14/18 12:36 General: Alert, Oriented x3, Cooperative, No apparent distress HEENT: Atraumatic, Normocephalic Oral: Moist Mucosa Cardiovascular: Regular rate, Regular Rhythm Abdomen: Soft, Non Tender Extremities: Edema Skin: Ulcer/ Wound Wound Measurements and Assessment WC - Nurse 1 - General Ulcer Measurement Start: 07/07/18 11:34 Freq: Status: Active Protocol: Activity Type Activity Date Activity User E-Sign Co-Sign Detail Recorded Client Recorded Date Recorded By Document 07/14/18 12:36 MW [id number] 07/14/18 12:43 MW 07/14/18 12:36 Wound Center Nurse 1 [Ulcer Assessment] #2 Medial RLE CLUSTER -Combined with other wound No -Current Size (cm) - Length 0.1 -Current Size (cm) - Width 0.1 -Current Size (cm) - Depth 0.1 -Total Square Cm 0.01 -Photo Taken No -Epithelialization None Present -Tunneling No -Undermining/Tunneling No -Circular Undermining No -Exudate Amt None Present -Wound Margin Distinct, Outline Attached -Granulation Amt None Present (0 %) -Slough/Fibrin Yes -Necrosis Amt Large (67-100%) -Necrotic Tissue Type Adherent Slough -Texture (Natty-wound Skin Appearance) Scarring -Moisture (Natty-wound Skin Appearance Dry/Scaly ) -Color (Natty-wound Skin Appearance) Assessed -Temperature (Natty-wound Skin No Abnormality Appearance) (Pt Warm) -Tenderness on Palpation (Natty-wound No Skin Appearance) -Ulcer Cleansing Rinsed/ Irrigated with Saline -Foul Odor after Cleansing No -Anesthetic Used 5% Lidocaine Gel #1- LT BUTTOCK -Combined with other wound No -Current Size (cm) - Length 1 -Current Size (cm) - Width 1.2 -Current Size (cm) - Depth 0.1 -Total Square Cm 1.2 -Photo Taken No -Epithelialization Small 1-33% -Tunneling No -Undermining/Tunneling No -Circular Undermining No -Exudate Amt Small -Exudate Type Serous -Wound Margin Flat & Intact -Granulation Amt Small (1-33%) -Granulation Quality [place] -Slough/Fibrin Yes -Necrosis Amt Large (67-100%) -Necrotic Tissue Type Adherent Slough -Texture (Natty-wound Skin Appearance) Scarring -Moisture (Natty-wound Skin Appearance Assessed ) -Color (Natty-wound Skin Appearance) Erythema -Temperature (Natty-wound Skin No Abnormality Appearance) (Pt Warm) -Tenderness on Palpation (Natty-wound No Skin Appearance) -Ulcer Cleansing Rinsed/ Irrigated with Saline -Foul Odor after Cleansing No -Anesthetic Used 5% Lidocaine Gel WC - Nurse 2 - General Ulcer CM Notes Start: 07/07/18 11:34 Freq: Status: Active Protocol: Activity Type Activity Date Activity User E-Sign Co-Sign Detail Recorded Client Recorded Date Recorded By Document 07/14/18 12:59 DV [id number] 07/14/18 13:12 DV 07/14/18 12:59 Wound Center Nurse 2 [Procedure/Treatment] #2 Medial RLE CLUSTER -Time 13:04 -Correct Patient Yes -Correct Side, Site, Position Yes -Correct Procedure Yes -Procedure Performed Yes -Type of Procedure Debridement -Clinical Debridement Subcutaneous -Post Debridement Size (cm) - Length 6.1 -Post Debridement Size (cm) - Width 0.5 -Post Debridement Size (cm) - Depth 0.2 -Total Square Cm 3.05 -Wound/Ulcer Outcome Not Healed -Ulcer Cleansing Rinsed/ Irrigated with Saline -Foul Odor after Cleansing No -Bioengineered Tissue No -Bleeding Controlled with Pressure -Offloading No -Treatment Response Procedure Tolerated Well #1- LT BUTTOCK -Time 13:06 -Correct Patient Yes -Correct Side, Site, Position Yes -Correct Procedure Yes -Procedure Performed Yes -Type of Procedure Debridement -Clinical Debridement Subcutaneous -Post Debridement Size (cm) - Length 1.1 -Post Debridement Size (cm) - Width 1.2 -Post Debridement Size (cm) - Depth 0.1 -Total Square Cm 1.32 -Wound/Ulcer Outcome Not Healed -Ulcer Cleansing Rinsed/ Irrigated with Saline -Foul Odor after Cleansing No -Bioengineered Tissue No -Bleeding Controlled with Pressure -Treatment Response Procedure Tolerated Well [See Physician Procedure note for Specifics] Psych/Mental Status: Normal Affect, Appropriate Debridement Note Post-Debridement Measurements/Treatment WC - Nurse 2 - General Ulcer CM Notes Start: 07/07/18 11:34 Freq: Status: Active Protocol: Activity Type Activity Date Activity User E-Sign Co-Sign Detail Recorded Client Recorded Date Recorded By Document 07/07/18 12:54 DV [id number] 07/07/18 13:02 DV Document 07/14/18 12:59 DV [id number] 07/14/18 13:12 DV 07/07/18 07/14/18 12:54 12:59 Wound Center Nurse 2 #2 Medial RLE CLUSTER -Time 12:57 13:04 -Correct Patient Yes Yes -Correct Side, Site, Position Yes Yes -Correct Procedure Yes Yes -Procedure Performed Yes Yes -Type of Procedure Debridement Debridement -Clinical Debridement Subcutaneous Subcutaneous -Post Debridement Size (cm) - Length 6.5 6.1 -Post Debridement Size (cm) - Width 0.6 0.5 -Post Debridement Size (cm) - Depth 0.1 0.2 -Total Square Cm 3.90 3.05 -Wound/Ulcer Outcome Not Healed -Ulcer Cleansing Rinsed/ Rinsed/ Irrigated with Irrigated with Saline Saline -Foul Odor after Cleansing No No -Bioengineered Tissue No No -Bleeding Controlled with Pressure Pressure -Offloading No No -Treatment Response Procedure Procedure Tolerated Well Tolerated Well #1- LT BUTTOCK -Time 12:56 13:06 -Correct Patient Yes Yes -Correct Side, Site, Position Yes Yes -Correct Procedure Yes Yes -Procedure Performed Yes Yes -Type of Procedure Debridement Debridement -Clinical Debridement Subcutaneous Subcutaneous -Post Debridement Size (cm) - Length 1.6 1.1 -Post Debridement Size (cm) - Width 1.8 1.2 -Post Debridement Size (cm) - Depth 0.1 0.1 -Total Square Cm 2.88 1.32 -Wound/Ulcer Outcome Not Healed Not Healed -Ulcer Cleansing Rinsed/ Rinsed/ Irrigated with Irrigated with Saline Saline -Foul Odor after Cleansing No No -Bioengineered Tissue No No -Bleeding Controlled with Pressure -Offloading No -Treatment Response Procedure Procedure Tolerated Well Tolerated Well Pain Scale: 0-10 Numeric Is Patient Pain Free? Yes Wound debrided: right medial LE cluster Laterality: Right Type of Debridement: Excisional debridement Anesthesia Used: 4% Lidocaine Solution Depth: Down to and including healthy tissue, in the subcutaneous layer Percentage of wound debrided: 100 Instrument Used: 5mm curette Tissue Removed: yellow slough, devitalized tissue Severity: Fat Layer Exposed Amount of bleeding with debridement: Mild Bleeding Controlled with: Compression and gauze Patient tolerated procedure well - Additional Wound Wound debrided: left buttock Laterality: Left Wound Grade/Stage: Stage 2 Anesthesia Used: 4% Lidocaine Solution Depth: Down to and including healthy tissue, in the subcutaneous layer Percentage of wound debrided: 100 Instrument Used: 5mm curette Tissue Removed: yellow slough, devitalized tissue Severity: Fat Layer Exposed Amount of bleeding with debridement: Mild Bleeding Controlled with: Compression and gauze Patient tolerated procedure: Patient tolerated procedure well Assessment/Plan Active Problems (Last Reviewed 06/10/17 @ 13:50 by Mel Peralta) Stage II pressure ulcer of left buttock (Chronic) Nonhealing nonsurgical wound with fat layer exposed (Chronic) Dependence on renal dialysis (Chronic) CAD (coronary artery disease), autologous vein bypass graft (Chronic) H/O mitral valve replacement (Chronic) Current smoker (Chronic) H/O lung transplant (Chronic) Assessment: stage 2 pressure ulcer left buttock. nonhealing surgical wound medial right LE Plan: Manuel's wounds/ulcer were evaluated and debrided today. Will treat her wounds and ulcer with Sammi. Discussed offloading of her buttocks and increased protein intake to facilitate healing. Due to her multiple medical issues and chronic dialysis she is being placed on a palliative treatment plan. Encouraged smoking cessation. F/U in 1 week.
[2018-07-21 12:15] VITALS: BP 125/84; PULSE 80; RESP 16; TEMP 36.4; BMI 23.3
--- NOTE | 2018-07-21 12:20 | WC ---
PT REFUSED TO HAVE NURSE ASSESS/MEASURE WOUND TO RLE MEDIAL CLUSTER. WILL BE SEEING SURGEON FOR F/U ON TUESDAY. WILL UPDATE MD AND MATTRESS WEAVER.
--- NOTE | 2018-07-21 16:47 | PCM.WC.PN ---
(1) Stage II pressure ulcer of left buttock Status: Chronic Current Visit: Yes Code(s): L89.322 - Pressure ulcer of left buttock, stage 2 (2) Nonhealing nonsurgical wound with fat layer exposed Status: Chronic Current Visit: Yes Code(s): T14.8XXA - Other injury of unspecified body region, initial encounter (3) Dependence on renal dialysis Status: Chronic Current Visit: Yes Code(s): Z99.2 - Dependence on renal dialysis (4) CAD (coronary artery disease), autologous vein bypass graft Status: Chronic Current Visit: Yes Qualifiers: Associated angina: angina presence unspecified Qualified Code(s): I25.810 - Atherosclerosis of coronary artery bypass graft(s) without angina pectoris Code(s): I25.810 - Atherosclerosis of coronary artery bypass graft(s) without angina pectoris (5) H/O mitral valve replacement Status: Chronic Current Visit: Yes Code(s): Z95.2 - Presence of prosthetic heart valve (6) Current smoker Status: Chronic Current Visit: Yes Code(s): F17.200 - Nicotine dependence, unspecified, uncomplicated (7) H/O lung transplant Status: Chronic Current Visit: Yes Code(s): Z94.2 - Lung transplant status Type of Wound Date of Service: 07/21/18 Chief Complaint: ulcer of left buttock and nonhealing surgical wound right leg History of Wound: Manuel is a 57 yo female who is on chronic dialysis and s/p recent CABG x 1 and mitral valve replacement that is here today for evaluation of a stage 2 pressure ulcer of her left buttock and nonhealing surgical wound of right medial thigh. She underwent CABG and mitral valve replacement in the beginning of May and developed a pressure ulcer of her left buttock while hospitalized. She has not been using anything on the ulcer. She also is concerned about the surgical site where her vein was harvested for her bypass graft. She follows up with the surgeon at the end of the month. She is on chronic dialysis due to nephrectomies. She also has a h/o lung transplant. She denies any fever, chills or erythema or odor. Progress of Wound: Manuel is here in follow up for pressure ulcer of her left buttock and nonhealing surgical wounds of her right medial lower leg. She tolerated dressings and has been trying to offload her buttock as much as possible. She has increased her protein intake. She has had moderate amount of drainage from her ulcer/wounds and they are full thickness in depth. She denies increased pain, fever or chills. - Physical Exam Vital Signs Temp Pulse Resp BP 97.5 F L 80 16 125/84 H 07/21/18 12:15 07/21/18 12:15 07/21/18 12:15 07/21/18 12:15 General: Alert, Oriented x3, Cooperative, No apparent distress HEENT: Atraumatic, Normocephalic Oral: Moist Mucosa Extremities: Edema Skin: Ulcer/ Wound Wound Measurements and Assessment WC - Nurse 1 - General Ulcer Measurement Start: 07/07/18 11:34 Freq: Status: Active Protocol: Activity Type Activity Date Activity User E-Sign Co-Sign Detail Recorded Client Recorded Date Recorded By Document 07/21/18 12:15 [facility] [id number] 07/21/18 12:20 BM 07/21/18 12:15 Wound Center Nurse 1 [Ulcer Assessment] #1- LT BUTTOCK -Combined with other wound No -Current Size (cm) - Length 0.7 -Current Size (cm) - Width 0.8 -Current Size (cm) - Depth 0.1 -Total Square Cm 0.56 -Photo Taken No -Epithelialization Small 1-33% -Tunneling No -Undermining/Tunneling No -Circular Undermining No -Exudate Amt Small -Exudate Type Serous -Wound Margin Distinct, Outline Attached -Granulation Amt Small (1-33%) -Granulation Quality [place] -Slough/Fibrin Yes -Necrosis Amt Large (67-100%) -Necrotic Tissue Type Adherent Slough -Texture (Natty-wound Skin Appearance) Assessed Scarring -Moisture (Natty-wound Skin Appearance Assessed ) Dry/Scaly -Color (Natty-wound Skin Appearance) Assessed Erythema -Temperature (Natty-wound Skin No Abnormality Appearance) (Pt Warm) -Tenderness on Palpation (Natty-wound No Skin Appearance) -Ulcer Cleansing Rinsed/ Irrigated with Saline -Foul Odor after Cleansing No -Anesthetic Used 5% Lidocaine Gel WC - Nurse 2 - General Ulcer CM Notes Start: 07/07/18 11:34 Freq: Status: Active Protocol: Activity Type Activity Date Activity User E-Sign Co-Sign Detail Recorded Client Recorded Date Recorded By Document 07/21/18 12:30 DV [id number] 07/21/18 12:35 DV 07/21/18 12:30 Wound Center Nurse 2 [Procedure/Treatment] #2 Medial RLE CLUSTER -Time 12:31 -Correct Patient Yes -Correct Side, Site, Position Yes -Correct Procedure No -Procedure Performed No -Wound/Ulcer Outcome Not Healed #1- LT BUTTOCK -Time 12:31 -Correct Patient Yes -Correct Side, Site, Position Yes -Correct Procedure Yes -Procedure Performed Yes -Type of Procedure Debridement -Clinical Debridement Subcutaneous -Post Debridement Size (cm) - Length 0.8 -Post Debridement Size (cm) - Width 0.8 -Post Debridement Size (cm) - Depth 0.1 -Total Square Cm 0.64 -Wound/Ulcer Outcome Not Healed -Ulcer Cleansing Rinsed/ Irrigated with Saline -Foul Odor after Cleansing No -Bioengineered Tissue No -Bleeding Controlled with Pressure -Offloading No -Treatment Response Procedure Tolerated Well [See Physician Procedure note for Specifics] Pain Scale: 0-10 Numeric [Pain] -Is Patient Pain Free? Yes Psych/Mental Status: Normal Affect, Appropriate Debridement Note Post-Debridement Measurements/Treatment WC - Nurse 2 - General Ulcer CM Notes Start: 07/07/18 11:34 Freq: Status: Active Protocol: Activity Type Activity Date Activity User E-Sign Co-Sign Detail Recorded Client Recorded Date Recorded By Document 07/07/18 12:54 DV [id number] 07/07/18 13:02 DV Document 07/14/18 12:59 DV [id number] 07/14/18 13:12 DV Document 07/21/18 12:30 DV [id number] 07/21/18 12:35 DV 07/07/18 07/14/18 07/21/18 12:54 12:59 12:30 Wound Center Nurse 2 #2 Medial RLE CLUSTER -Time 12:57 13:04 12:31 -Correct Patient Yes Yes Yes -Correct Side, Site, Position Yes Yes Yes -Correct Procedure Yes Yes No -Procedure Performed Yes Yes No -Type of Procedure Debridement Debridement -Clinical Debridement Subcutaneous Subcutaneous -Post Debridement Size (cm) - Length 6.5 6.1 -Post Debridement Size (cm) - Width 0.6 0.5 -Post Debridement Size (cm) - Depth 0.1 0.2 -Total Square Cm 3.90 3.05 -Wound/Ulcer Outcome Not Healed Not Healed -Ulcer Cleansing Rinsed/ Rinsed/ Irrigated with Irrigated with Saline Saline -Foul Odor after Cleansing No No -Bioengineered Tissue No No -Bleeding Controlled with Pressure Pressure -Offloading No No -Treatment Response Procedure Procedure Tolerated Well Tolerated Well #1- LT BUTTOCK -Time 12:56 13:06 12:31 -Correct Patient Yes Yes Yes -Correct Side, Site, Position Yes Yes Yes -Correct Procedure Yes Yes Yes -Procedure Performed Yes Yes Yes -Type of Procedure Debridement Debridement Debridement -Clinical Debridement Subcutaneous Subcutaneous Subcutaneous -Post Debridement Size (cm) - Length 1.6 1.1 0.8 -Post Debridement Size (cm) - Width 1.8 1.2 0.8 -Post Debridement Size (cm) - Depth 0.1 0.1 0.1 -Total Square Cm 2.88 1.32 0.64 -Wound/Ulcer Outcome Not Healed Not Healed Not Healed -Ulcer Cleansing Rinsed/ Rinsed/ Rinsed/ Irrigated with Irrigated with Irrigated with Saline Saline Saline -Foul Odor after Cleansing No No No -Bioengineered Tissue No No No -Bleeding Controlled with Pressure Pressure -Offloading No No -Treatment Response Procedure Procedure Procedure Tolerated Well Tolerated Well Tolerated Well Pain Scale: 0-10 Numeric Is Patient Pain Free? Yes Yes Wound debrided: medial right LE cluster Laterality: Right No debridement was completed today - at the patients request. She follows up wit [facility] surgeon on Tuesday - Additional Wound Wound debrided: left buttock Laterality: Left Wound Grade/Stage: stage 2 pressure ulcer Type of Debridement: Excisional debridement Anesthesia Used: 5% Lidocaine Gel Depth: Down to and including healthy tissue, in the subcutaneous layer Percentage of wound debrided: 100 Instrument Used: 5mm curette Tissue Removed: yellow slough, devitalized tissue Severity: Fat Layer Exposed Amount of bleeding with debridement: Mild Bleeding Controlled with: Compression and gauze Patient tolerated procedure: Patient tolerated procedure well Assessment/Plan Active Problems (Last Reviewed 06/10/17 @ 13:50 by Mel Peralta) Stage II pressure ulcer of left buttock (Chronic) Nonhealing nonsurgical wound with fat layer exposed (Chronic) Dependence on renal dialysis (Chronic) CAD (coronary artery disease), autologous vein bypass graft (Chronic) H/O mitral valve replacement (Chronic) Current smoker (Chronic) H/O lung transplant (Chronic) Assessment: stage 2 pressure ulcer left buttock. nonhealing surgical wound medial right LE Plan: Manuel's wounds/ulcer were evaluated and her left buttock was debrided today. Will continue to treat her wounds and pressure ulcer with Sammi. Discussed offloading of her buttocks and increased protein intake to facilitate healing. Due to her multiple medical issues and chronic dialysis she is being placed on a palliative treatment plan. Encouraged smoking cessation. F/U in 1 week.
--- NOTE | 2018-07-21 16:51 | PN.PCM_ITS ---
(1) Stage II pressure ulcer of left buttock Status: Chronic Current Visit: Yes Code(s): L89.322 - Pressure ulcer of left buttock, stage 2 (2) Nonhealing nonsurgical wound with fat layer exposed Status: Chronic Current Visit: Yes Code(s): T14.8XXA - Other injury of unspecified body region, initial encounter (3) Dependence on renal dialysis Status: Chronic Current Visit: Yes Code(s): Z99.2 - Dependence on renal dialysis (4) CAD (coronary artery disease), autologous vein bypass graft Status: Chronic Current Visit: Yes Qualifiers: Associated angina: angina presence unspecified Qualified Code(s): I25.810 - Atherosclerosis of coronary artery bypass graft(s) without angina pectoris Code(s): I25.810 - Atherosclerosis of coronary artery bypass graft(s) without angina pectoris (5) H/O mitral valve replacement Status: Chronic Current Visit: Yes Code(s): Z95.2 - Presence of prosthetic heart valve (6) Current smoker Status: Chronic Current Visit: Yes Code(s): F17.200 - Nicotine dependence, unspecified, uncomplicated (7) H/O lung transplant Status: Chronic Current Visit: Yes Code(s): Z94.2 - Lung transplant status Type of Wound Date of Service: 07/21/18 Chief Complaint: ulcer of left buttock and nonhealing surgical wound right leg History of Wound: Manuel is a 57 yo female who is on chronic dialysis and s/p recent CABG x 1 and mitral valve replacement that is here today for evaluation of a stage 2 pressure ulcer of her left buttock and nonhealing surgical wound of right medial thigh. She underwent CABG and mitral valve replacement in the beginning of May and developed a pressure ulcer of her left buttock while hospitalized. She has not been using anything on the ulcer. She also is concerned about the surgical site where her vein was harvested for her bypass graft. She follows up with the surgeon at the end of the month. She is on chronic dialysis due to nephrectomies. She also has a h/o lung transplant. She denies any fever, chills or erythema or odor. Progress of Wound: Manuel is here in follow up for pressure ulcer of her left buttock and nonhealing surgical wounds of her right medial lower leg. She tolerated dressings and has been trying to offload her buttock as much as possible. She has increased her protein intake. She has had moderate amount of drainage from her ulcer/wounds and they are full thickness in depth. She denies increased pain, fever or chills. - Physical Exam Vital Signs Temp Pulse Resp BP 97.5 F L 80 16 125/84 H 07/21/18 12:15 07/21/18 12:15 07/21/18 12:15 07/21/18 12:15 General: Alert, Oriented x3, Cooperative, No apparent distress HEENT: Atraumatic, Normocephalic Oral: Moist Mucosa Extremities: Edema Skin: Ulcer/ Wound Wound Measurements and Assessment WC - Nurse 1 - General Ulcer Measurement Start: 07/07/18 11:34 Freq: Status: Active Protocol: Activity Type Activity Date Activity User E-Sign Co-Sign Detail Recorded Client Recorded Date Recorded By Document 07/21/18 12:15 [facility] [id number] 07/21/18 12:20 BM 07/21/18 12:15 Wound Center Nurse 1 [Ulcer Assessment] #1- LT BUTTOCK -Combined with other wound No -Current Size (cm) - Length 0.7 -Current Size (cm) - Width 0.8 -Current Size (cm) - Depth 0.1 -Total Square Cm 0.56 -Photo Taken No -Epithelialization Small 1-33% -Tunneling No -Undermining/Tunneling No -Circular Undermining No -Exudate Amt Small -Exudate Type Serous -Wound Margin Distinct, Outline Attached -Granulation Amt Small (1-33%) -Granulation Quality [place] -Slough/Fibrin Yes -Necrosis Amt Large (67-100%) -Necrotic Tissue Type Adherent Slough -Texture (Natty-wound Skin Appearance) Assessed Scarring -Moisture (Natty-wound Skin Appearance Assessed ) Dry/Scaly -Color (Natty-wound Skin Appearance) Assessed Erythema -Temperature (Natty-wound Skin No Abnormality Appearance) (Pt Warm) -Tenderness on Palpation (Natty-wound No Skin Appearance) -Ulcer Cleansing Rinsed/ Irrigated with Saline -Foul Odor after Cleansing No -Anesthetic Used 5% Lidocaine Gel WC - Nurse 2 - General Ulcer CM Notes Start: 07/07/18 11:34 Freq: Status: Active Protocol: Activity Type Activity Date Activity User E-Sign Co-Sign Detail Recorded Client Recorded Date Recorded By Document 07/21/18 12:30 DV [id number] 07/21/18 12:35 DV 07/21/18 12:30 Wound Center Nurse 2 [Procedure/Treatment] #2 Medial RLE CLUSTER -Time 12:31 -Correct Patient Yes -Correct Side, Site, Position Yes -Correct Procedure No -Procedure Performed No -Wound/Ulcer Outcome Not Healed #1- LT BUTTOCK -Time 12:31 -Correct Patient Yes -Correct Side, Site, Position Yes -Correct Procedure Yes -Procedure Performed Yes -Type of Procedure Debridement -Clinical Debridement Subcutaneous -Post Debridement Size (cm) - Length 0.8 -Post Debridement Size (cm) - Width 0.8 -Post Debridement Size (cm) - Depth 0.1 -Total Square Cm 0.64 -Wound/Ulcer Outcome Not Healed -Ulcer Cleansing Rinsed/ Irrigated with Saline -Foul Odor after Cleansing No -Bioengineered Tissue No -Bleeding Controlled with Pressure -Offloading No -Treatment Response Procedure Tolerated Well [See Physician Procedure note for Specifics] Pain Scale: 0-10 Numeric [Pain] -Is Patient Pain Free? Yes Psych/Mental Status: Normal Affect, Appropriate Debridement Note Post-Debridement Measurements/Treatment WC - Nurse 2 - General Ulcer CM Notes Start: 07/07/18 11:34 Freq: Status: Active Protocol: Activity Type Activity Date Activity User E-Sign Co-Sign Detail Recorded Client Recorded Date Recorded By Document 07/07/18 12:54 DV [id number] 07/07/18 13:02 DV Document 07/14/18 12:59 DV [id number] 07/14/18 13:12 DV Document 07/21/18 12:30 DV [id number] 07/21/18 12:35 DV 07/07/18 07/14/18 07/21/18 12:54 12:59 12:30 Wound Center Nurse 2 #2 Medial RLE CLUSTER -Time 12:57 13:04 12:31 -Correct Patient Yes Yes Yes -Correct Side, Site, Position Yes Yes Yes -Correct Procedure Yes Yes No -Procedure Performed Yes Yes No -Type of Procedure Debridement Debridement -Clinical Debridement Subcutaneous Subcutaneous -Post Debridement Size (cm) - Length 6.5 6.1 -Post Debridement Size (cm) - Width 0.6 0.5 -Post Debridement Size (cm) - Depth 0.1 0.2 -Total Square Cm 3.90 3.05 -Wound/Ulcer Outcome Not Healed Not Healed -Ulcer Cleansing Rinsed/ Rinsed/ Irrigated with Irrigated with Saline Saline -Foul Odor after Cleansing No No -Bioengineered Tissue No No -Bleeding Controlled with Pressure Pressure -Offloading No No -Treatment Response Procedure Procedure Tolerated Well Tolerated Well #1- LT BUTTOCK -Time 12:56 13:06 12:31 -Correct Patient Yes Yes Yes -Correct Side, Site, Position Yes Yes Yes -Correct Procedure Yes Yes Yes -Procedure Performed Yes Yes Yes -Type of Procedure Debridement Debridement Debridement -Clinical Debridement Subcutaneous Subcutaneous Subcutaneous -Post Debridement Size (cm) - Length 1.6 1.1 0.8 -Post Debridement Size (cm) - Width 1.8 1.2 0.8 -Post Debridement Size (cm) - Depth 0.1 0.1 0.1 -Total Square Cm 2.88 1.32 0.64 -Wound/Ulcer Outcome Not Healed Not Healed Not Healed -Ulcer Cleansing Rinsed/ Rinsed/ Rinsed/ Irrigated with Irrigated with Irrigated with Saline Saline Saline -Foul Odor after Cleansing No No No -Bioengineered Tissue No No No -Bleeding Controlled with Pressure Pressure -Offloading No No -Treatment Response Procedure Procedure Procedure Tolerated Well Tolerated Well Tolerated Well Pain Scale: 0-10 Numeric Is Patient Pain Free? Yes Yes Wound debrided: medial right LE cluster Laterality: Right No debridement was completed today - at the patients request. She follows up wit [facility] surgeon on Tuesday - Additional Wound Wound debrided: left buttock Laterality: Left Wound Grade/Stage: stage 2 pressure ulcer Type of Debridement: Excisional debridement Anesthesia Used: 5% Lidocaine Gel Depth: Down to and including healthy tissue, in the subcutaneous layer Percentage of wound debrided: 100 Instrument Used: 5mm curette Tissue Removed: yellow slough, devitalized tissue Severity: Fat Layer Exposed Amount of bleeding with debridement: Mild Bleeding Controlled with: Compression and gauze Patient tolerated procedure: Patient tolerated procedure well Assessment/Plan Active Problems (Last Reviewed 06/10/17 @ 13:50 by Mel Peralta) Stage II pressure ulcer of left buttock (Chronic) Nonhealing nonsurgical wound with fat layer exposed (Chronic) Dependence on renal dialysis (Chronic) CAD (coronary artery disease), autologous vein bypass graft (Chronic) H/O mitral valve replacement (Chronic) Current smoker (Chronic) H/O lung transplant (Chronic) Assessment: stage 2 pressure ulcer left buttock. nonhealing surgical wound medial right LE Plan: Manuel's wounds/ulcer were evaluated and her left buttock was debrided today. Will continue to treat her wounds and pressure ulcer with Sammi. Discussed offloading of her buttocks and increased protein intake to facilitate healing. Due to her multiple medical issues and chronic dialysis she is being placed on a palliative treatment plan. Encouraged smoking cessation. F/U in 1 week.
[2018-07-28 12:16] VITALS: BP 118/77; PULSE 80; RESP 16; TEMP 36.5; BMI 23.3
--- NOTE | 2018-07-28 12:21 | WC ---
PT REFUSED TO HAVE WOUND #2 ASSESSED, RLE CLUSTER. SAID HER SURGEON IS MANAGING. WILL UPDATE CM AND MD.
--- NOTE | 2018-07-28 16:51 | PCM.WC.PN ---
(1) Stage II pressure ulcer of left buttock Status: Chronic Current Visit: Yes Code(s): L89.322 - Pressure ulcer of left buttock, stage 2 (2) Nonhealing nonsurgical wound with fat layer exposed Status: Chronic Current Visit: Yes Code(s): T14.8XXA - Other injury of unspecified body region, initial encounter (3) Dependence on renal dialysis Status: Chronic Current Visit: Yes Code(s): Z99.2 - Dependence on renal dialysis (4) CAD (coronary artery disease), autologous vein bypass graft Status: Chronic Current Visit: Yes Qualifiers: Associated angina: angina presence unspecified Qualified Code(s): I25.810 - Atherosclerosis of coronary artery bypass graft(s) without angina pectoris Code(s): I25.810 - Atherosclerosis of coronary artery bypass graft(s) without angina pectoris (5) H/O mitral valve replacement Status: Chronic Current Visit: Yes Code(s): Z95.2 - Presence of prosthetic heart valve (6) Current smoker Status: Chronic Current Visit: Yes Code(s): F17.200 - Nicotine dependence, unspecified, uncomplicated (7) H/O lung transplant Status: Chronic Current Visit: Yes Code(s): Z94.2 - Lung transplant status Type of Wound Date of Service: 07/28/18 Chief Complaint: ulcer of left buttock and nonhealing surgical wound right leg History of Wound: Manuel is a 57 yo female who is on chronic dialysis and s/p recent CABG x 1 and mitral valve replacement that is here today for evaluation of a stage 2 pressure ulcer of her left buttock and nonhealing surgical wound of right medial thigh. She underwent CABG and mitral valve replacement in the beginning of May and developed a pressure ulcer of her left buttock while hospitalized. She has not been using anything on the ulcer. She also is concerned about the surgical site where her vein was harvested for her bypass graft. She follows up with the surgeon at the end of the month. She is on chronic dialysis due to nephrectomies. She also has a h/o lung transplant. She denies any fever, chills or erythema or odor. Progress of Wound: Manuel is here in follow up for pressure ulcer of her left buttock and nonhealing surgical wounds of her right medial lower leg. She tolerated dressings and has been trying to offload her buttock as much as possible. She has increased her protein intake. She has had moderate amount of drainage from her ulcer/wounds and they are full thickness in depth. She denies increased pain, fever or chills. She refuses evaluation of her right leg wounds any longer and states that they are fine. - Physical Exam Vital Signs Temp Pulse Resp BP 97.7 F L 80 16 118/77 07/28/18 12:16 07/28/18 12:16 07/28/18 12:16 07/28/18 12:16 General: Alert, Oriented x3, Cooperative, No apparent distress HEENT: Atraumatic, Normocephalic Oral: Moist Mucosa Skin: Ulcer/ Wound Wound Measurements and Assessment WC - Nurse 1 - General Ulcer Measurement Start: 07/07/18 11:34 Freq: Status: Active Protocol: Activity Type Activity Date Activity User E-Sign Co-Sign Detail Recorded Client Recorded Date Recorded By Document 07/28/18 12:16 [facility] [id number] 07/28/18 12:21 [facility] 07/28/18 12:16 Wound Center Nurse 1 [Ulcer Assessment] #1- LT BUTTOCK -Combined with other wound No -Current Size (cm) - Length 0.5 -Current Size (cm) - Width 0.5 -Current Size (cm) - Depth 0.1 -Total Square Cm 0.25 -Photo Taken No -Epithelialization Small 1-33% -Tunneling No -Undermining/Tunneling No -Circular Undermining No -Exudate Amt Small -Exudate Type Sanguineous -Wound Margin Distinct, Outline Attached -Granulation Amt Large (67-100%) -Granulation Quality Red -Slough/Fibrin No -Necrosis Amt None Present (0 %) -Texture (Natty-wound Skin Appearance) Scarring -Moisture (Natty-wound Skin Appearance Assessed ) -Color (Natty-wound Skin Appearance) Assessed -Temperature (Natty-wound Skin No Abnormality Appearance) (Pt Warm) -Tenderness on Palpation (Natty-wound No Skin Appearance) -Ulcer Cleansing Rinsed/ Irrigated with Saline -Foul Odor after Cleansing No -Anesthetic Used 5% Lidocaine Gel WC - Nurse 2 - General Ulcer CM Notes Start: 07/07/18 11:34 Freq: Status: Active Protocol: Activity Type Activity Date Activity User E-Sign Co-Sign Detail Recorded Client Recorded Date Recorded By Document 07/28/18 12:36 DV [id number] 07/28/18 12:39 DV 07/28/18 12:36 Wound Center Nurse 2 [Procedure/Treatment] #2 Medial RLE CLUSTER -Time 12:37 -Correct Patient Yes -Correct Side, Site, Position Yes -Correct Procedure No -Procedure Performed No -Type of Procedure Debridement -Clinical Debridement Subcutaneous -Post Debridement Size (cm) - Length 0 -Post Debridement Size (cm) - Width 0 -Post Debridement Size (cm) - Depth 0 -Total Square Cm 0 #1- LT BUTTOCK -Time 12:38 -Correct Patient Yes -Correct Side, Site, Position Yes -Correct Procedure Yes -Procedure Performed Yes -Type of Procedure Debridement -Clinical Debridement Subcutaneous -Post Debridement Size (cm) - Length 0.6 -Post Debridement Size (cm) - Width 0.5 -Post Debridement Size (cm) - Depth 0.1 -Total Square Cm 0.30 -Wound/Ulcer Outcome Not Healed -Ulcer Cleansing Rinsed/ Irrigated with Saline -Foul Odor after Cleansing No -Bioengineered Tissue No -Offloading Yes -Treatment Response Procedure Tolerated Well [See Physician Procedure note for Specifics] Pain Scale: 0-10 Numeric [Pain] -Is Patient Pain Free? Yes Psych/Mental Status: Appropriate, Flat Affect Debridement Note Post-Debridement Measurements/Treatment WC - Nurse 2 - General Ulcer CM Notes Start: 07/07/18 11:34 Freq: Status: Active Protocol: Activity Type Activity Date Activity User E-Sign Co-Sign Detail Recorded Client Recorded Date Recorded By Document 07/07/18 12:54 DV [id number] 07/07/18 13:02 DV Document 07/14/18 12:59 DV [id number] 07/14/18 13:12 DV Document 07/21/18 12:30 DV [id number] 07/21/18 12:35 DV Document 07/28/18 12:36 DV [id number] 07/28/18 12:39 DV 07/07/18 07/14/18 07/21/18 12:54 12:59 12:30 Wound Center Nurse 2 #2 Medial RLE CLUSTER -Time 12:57 13:04 12:31 -Correct Patient Yes Yes Yes -Correct Side, Site, Position Yes Yes Yes -Correct Procedure Yes Yes No -Procedure Performed Yes Yes No -Type of Procedure Debridement Debridement -Clinical Debridement Subcutaneous Subcutaneous -Post Debridement Size (cm) - Length 6.5 6.1 -Post Debridement Size (cm) - Width 0.6 0.5 -Post Debridement Size (cm) - Depth 0.1 0.2 -Total Square Cm 3.90 3.05 -Wound/Ulcer Outcome Not Healed Not Healed -Ulcer Cleansing Rinsed/ Rinsed/ Irrigated with Irrigated with Saline Saline -Foul Odor after Cleansing No No -Bioengineered Tissue No No -Bleeding Controlled with Pressure Pressure -Offloading No No -Treatment Response Procedure Procedure Tolerated Well Tolerated Well #1- LT BUTTOCK -Time 12:56 13:06 12:31 -Correct Patient Yes Yes Yes -Correct Side, Site, Position Yes Yes Yes -Correct Procedure Yes Yes Yes -Procedure Performed Yes Yes Yes -Type of Procedure Debridement Debridement Debridement -Clinical Debridement Subcutaneous Subcutaneous Subcutaneous -Post Debridement Size (cm) - Length 1.6 1.1 0.8 -Post Debridement Size (cm) - Width 1.8 1.2 0.8 -Post Debridement Size (cm) - Depth 0.1 0.1 0.1 -Total Square Cm 2.88 1.32 0.64 -Wound/Ulcer Outcome Not Healed Not Healed Not Healed -Ulcer Cleansing Rinsed/ Rinsed/ Rinsed/ Irrigated with Irrigated with Irrigated with Saline Saline Saline -Foul Odor after Cleansing No No No -Bioengineered Tissue No No No -Bleeding Controlled with Pressure Pressure -Offloading No No -Treatment Response Procedure Procedure Procedure Tolerated Well Tolerated Well Tolerated Well Pain Scale: 0-10 Numeric Is Patient Pain Free? Yes Yes 07/28/18 12:36 Wound Center Nurse 2 #2 [facility] CLUSTER -Time 12:37 -Correct Patient Yes -Correct Side, Site, Position Yes -Correct Procedure No -Procedure Performed No -Type of Procedure Debridement -Clinical Debridement Subcutaneous -Post Debridement Size (cm) - Length 0 -Post Debridement Size (cm) - Width 0 -Post Debridement Size (cm) - Depth 0 -Total Square Cm 0 -Wound/Ulcer Outcome -Ulcer Cleansing -Foul Odor after Cleansing -Bioengineered Tissue -Bleeding Controlled with -Offloading -Treatment Response #1- LT BUTTOCK -Time 12:38 -Correct Patient Yes -Correct Side, Site, Position Yes -Correct Procedure Yes -Procedure Performed Yes -Type of Procedure Debridement -Clinical Debridement Subcutaneous -Post Debridement Size (cm) - Length 0.6 -Post Debridement Size (cm) - Width 0.5 -Post Debridement Size (cm) - Depth 0.1 -Total Square Cm 0.30 -Wound/Ulcer Outcome Not Healed -Ulcer Cleansing Rinsed/ Irrigated with Saline -Foul Odor after Cleansing No -Bioengineered Tissue No -Bleeding Controlled with -Offloading Yes -Treatment Response Procedure Tolerated Well Pain Scale: 0-10 Numeric Is Patient Pain Free? Yes Wound debrided: medial RLE cluster No debridement was completed today - because patient refuses stating they are healed - Additional Wound Wound debrided: left buttock Laterality: Left Wound Grade/Stage: Stage II Type of Debridement: Excisional debridement Anesthesia Used: 4% Lidocaine Solution, 5% Lidocaine Gel Depth: Down to and including healthy tissue, in the subcutaneous layer Percentage of wound debrided: 100 Instrument Used: 5mm curette Tissue Removed: yellow slough, devitalized tissue Severity: Fat Layer Exposed Amount of bleeding with debridement: Mild Bleeding Controlled with: Compression and gauze Patient tolerated procedure: Patient tolerated procedure well Assessment/Plan Active Problems (Last Reviewed 06/10/17 @ 13:50 by Mel Peralta) Stage II pressure ulcer of left buttock (Chronic) Nonhealing nonsurgical wound with fat layer exposed (Chronic) Dependence on renal dialysis (Chronic) CAD (coronary artery disease), autologous vein bypass graft (Chronic) H/O mitral valve replacement (Chronic) Current smoker (Chronic) H/O lung transplant (Chronic) Assessment: stage 2 pressure ulcer left buttock. nonhealing surgical wound medial right LE Plan: Manuel's ulcer was evaluated and her left buttock was debrided today. Will continue to treat her pressure ulcer with Sammi. Discussed offloading of her buttocks and increased protein intake to facilitate healing. Prescription given for a gel foam cushion given for her to use while sitting. Due to her multiple medical issues and chronic dialysis she is being placed on a palliative treatment plan. Encouraged smoking cessation. F/U in 1 week.
--- NOTE | 2018-07-28 16:56 | PN.PCM_ITS ---
(1) Stage II pressure ulcer of left buttock Status: Chronic Current Visit: Yes Code(s): L89.322 - Pressure ulcer of left buttock, stage 2 (2) Nonhealing nonsurgical wound with fat layer exposed Status: Chronic Current Visit: Yes Code(s): T14.8XXA - Other injury of unspecified body region, initial encounter (3) Dependence on renal dialysis Status: Chronic Current Visit: Yes Code(s): Z99.2 - Dependence on renal dialysis (4) CAD (coronary artery disease), autologous vein bypass graft Status: Chronic Current Visit: Yes Qualifiers: Associated angina: angina presence unspecified Qualified Code(s): I25.810 - Atherosclerosis of coronary artery bypass graft(s) without angina pectoris Code(s): I25.810 - Atherosclerosis of coronary artery bypass graft(s) without angina pectoris (5) H/O mitral valve replacement Status: Chronic Current Visit: Yes Code(s): Z95.2 - Presence of prosthetic heart valve (6) Current smoker Status: Chronic Current Visit: Yes Code(s): F17.200 - Nicotine dependence, unspecified, uncomplicated (7) H/O lung transplant Status: Chronic Current Visit: Yes Code(s): Z94.2 - Lung transplant status Type of Wound Date of Service: 07/28/18 Chief Complaint: ulcer of left buttock and nonhealing surgical wound right leg History of Wound: Manuel is a 57 yo female who is on chronic dialysis and s/p recent CABG x 1 and mitral valve replacement that is here today for evaluation of a stage 2 pressure ulcer of her left buttock and nonhealing surgical wound of right medial thigh. She underwent CABG and mitral valve replacement in the beginning of May and developed a pressure ulcer of her left buttock while hospitalized. She has not been using anything on the ulcer. She also is concerned about the surgical site where her vein was harvested for her bypass graft. She follows up with the surgeon at the end of the month. She is on chronic dialysis due to nephrectomies. She also has a h/o lung transplant. She denies any fever, chills or erythema or odor. Progress of Wound: Manuel is here in follow up for pressure ulcer of her left buttock and nonhealing surgical wounds of her right medial lower leg. She tolerated dressings and has been trying to offload her buttock as much as possible. She has increased her protein intake. She has had moderate amount of drainage from her ulcer/wounds and they are full thickness in depth. She denies increased pain, fever or chills. She refuses evaluation of her right leg wounds any longer and states that they are fine. - Physical Exam Vital Signs Temp Pulse Resp BP 97.7 F L 80 16 118/77 07/28/18 12:16 07/28/18 12:16 07/28/18 12:16 07/28/18 12:16 General: Alert, Oriented x3, Cooperative, No apparent distress HEENT: Atraumatic, Normocephalic Oral: Moist Mucosa Skin: Ulcer/ Wound Wound Measurements and Assessment WC - Nurse 1 - General Ulcer Measurement Start: 07/07/18 11:34 Freq: Status: Active Protocol: Activity Type Activity Date Activity User E-Sign Co-Sign Detail Recorded Client Recorded Date Recorded By Document 07/28/18 12:16 [facility] [id number] 07/28/18 12:21 [facility] 07/28/18 12:16 Wound Center Nurse 1 [Ulcer Assessment] #1- LT BUTTOCK -Combined with other wound No -Current Size (cm) - Length 0.5 -Current Size (cm) - Width 0.5 -Current Size (cm) - Depth 0.1 -Total Square Cm 0.25 -Photo Taken No -Epithelialization Small 1-33% -Tunneling No -Undermining/Tunneling No -Circular Undermining No -Exudate Amt Small -Exudate Type Sanguineous -Wound Margin Distinct, Outline Attached -Granulation Amt Large (67-100%) -Granulation Quality Red -Slough/Fibrin No -Necrosis Amt None Present (0 %) -Texture (Natty-wound Skin Appearance) Scarring -Moisture (Natty-wound Skin Appearance Assessed ) -Color (Natty-wound Skin Appearance) Assessed -Temperature (Natty-wound Skin No Abnormality Appearance) (Pt Warm) -Tenderness on Palpation (Natty-wound No Skin Appearance) -Ulcer Cleansing Rinsed/ Irrigated with Saline -Foul Odor after Cleansing No -Anesthetic Used 5% Lidocaine Gel WC - Nurse 2 - General Ulcer CM Notes Start: 07/07/18 11:34 Freq: Status: Active Protocol: Activity Type Activity Date Activity User E-Sign Co-Sign Detail Recorded Client Recorded Date Recorded By Document 07/28/18 12:36 DV [id number] 07/28/18 12:39 DV 07/28/18 12:36 Wound Center Nurse 2 [Procedure/Treatment] #2 Medial RLE CLUSTER -Time 12:37 -Correct Patient Yes -Correct Side, Site, Position Yes -Correct Procedure No -Procedure Performed No -Type of Procedure Debridement -Clinical Debridement Subcutaneous -Post Debridement Size (cm) - Length 0 -Post Debridement Size (cm) - Width 0 -Post Debridement Size (cm) - Depth 0 -Total Square Cm 0 #1- LT BUTTOCK -Time 12:38 -Correct Patient Yes -Correct Side, Site, Position Yes -Correct Procedure Yes -Procedure Performed Yes -Type of Procedure Debridement -Clinical Debridement Subcutaneous -Post Debridement Size (cm) - Length 0.6 -Post Debridement Size (cm) - Width 0.5 -Post Debridement Size (cm) - Depth 0.1 -Total Square Cm 0.30 -Wound/Ulcer Outcome Not Healed -Ulcer Cleansing Rinsed/ Irrigated with Saline -Foul Odor after Cleansing No -Bioengineered Tissue No -Offloading Yes -Treatment Response Procedure Tolerated Well [See Physician Procedure note for Specifics] Pain Scale: 0-10 Numeric [Pain] -Is Patient Pain Free? Yes Psych/Mental Status: Appropriate, Flat Affect Debridement Note Post-Debridement Measurements/Treatment WC - Nurse 2 - General Ulcer CM Notes Start: 07/07/18 11:34 Freq: Status: Active Protocol: Activity Type Activity Date Activity User E-Sign Co-Sign Detail Recorded Client Recorded Date Recorded By Document 07/07/18 12:54 DV [id number] 07/07/18 13:02 DV Document 07/14/18 12:59 DV [id number] 07/14/18 13:12 DV Document 07/21/18 12:30 DV [id number] 07/21/18 12:35 DV Document 07/28/18 12:36 DV [id number] 07/28/18 12:39 DV 07/07/18 07/14/18 07/21/18 12:54 12:59 12:30 Wound Center Nurse 2 #2 Medial RLE CLUSTER -Time 12:57 13:04 12:31 -Correct Patient Yes Yes Yes -Correct Side, Site, Position Yes Yes Yes -Correct Procedure Yes Yes No -Procedure Performed Yes Yes No -Type of Procedure Debridement Debridement -Clinical Debridement Subcutaneous Subcutaneous -Post Debridement Size (cm) - Length 6.5 6.1 -Post Debridement Size (cm) - Width 0.6 0.5 -Post Debridement Size (cm) - Depth 0.1 0.2 -Total Square Cm 3.90 3.05 -Wound/Ulcer Outcome Not Healed Not Healed -Ulcer Cleansing Rinsed/ Rinsed/ Irrigated with Irrigated with Saline Saline -Foul Odor after Cleansing No No -Bioengineered Tissue No No -Bleeding Controlled with Pressure Pressure -Offloading No No -Treatment Response Procedure Procedure Tolerated Well Tolerated Well #1- LT BUTTOCK -Time 12:56 13:06 12:31 -Correct Patient Yes Yes Yes -Correct Side, Site, Position Yes Yes Yes -Correct Procedure Yes Yes Yes -Procedure Performed Yes Yes Yes -Type of Procedure Debridement Debridement Debridement -Clinical Debridement Subcutaneous Subcutaneous Subcutaneous -Post Debridement Size (cm) - Length 1.6 1.1 0.8 -Post Debridement Size (cm) - Width 1.8 1.2 0.8 -Post Debridement Size (cm) - Depth 0.1 0.1 0.1 -Total Square Cm 2.88 1.32 0.64 -Wound/Ulcer Outcome Not Healed Not Healed Not Healed -Ulcer Cleansing Rinsed/ Rinsed/ Rinsed/ Irrigated with Irrigated with Irrigated with Saline Saline Saline -Foul Odor after Cleansing No No No -Bioengineered Tissue No No No -Bleeding Controlled with Pressure Pressure -Offloading No No -Treatment Response Procedure Procedure Procedure Tolerated Well Tolerated Well Tolerated Well Pain Scale: 0-10 Numeric Is Patient Pain Free? Yes Yes 07/28/18 12:36 Wound Center Nurse 2 #2 [facility] CLUSTER -Time 12:37 -Correct Patient Yes -Correct Side, Site, Position Yes -Correct Procedure No -Procedure Performed No -Type of Procedure Debridement -Clinical Debridement Subcutaneous -Post Debridement Size (cm) - Length 0 -Post Debridement Size (cm) - Width 0 -Post Debridement Size (cm) - Depth 0 -Total Square Cm 0 -Wound/Ulcer Outcome -Ulcer Cleansing -Foul Odor after Cleansing -Bioengineered Tissue -Bleeding Controlled with -Offloading -Treatment Response #1- LT BUTTOCK -Time 12:38 -Correct Patient Yes -Correct Side, Site, Position Yes -Correct Procedure Yes -Procedure Performed Yes -Type of Procedure Debridement -Clinical Debridement Subcutaneous -Post Debridement Size (cm) - Length 0.6 -Post Debridement Size (cm) - Width 0.5 -Post Debridement Size (cm) - Depth 0.1 -Total Square Cm 0.30 -Wound/Ulcer Outcome Not Healed -Ulcer Cleansing Rinsed/ Irrigated with Saline -Foul Odor after Cleansing No -Bioengineered Tissue No -Bleeding Controlled with -Offloading Yes -Treatment Response Procedure Tolerated Well Pain Scale: 0-10 Numeric Is Patient Pain Free? Yes Wound debrided: medial RLE cluster No debridement was completed today - because patient refuses stating they are healed - Additional Wound Wound debrided: left buttock Laterality: Left Wound Grade/Stage: Stage II Type of Debridement: Excisional debridement Anesthesia Used: 4% Lidocaine Solution, 5% Lidocaine Gel Depth: Down to and including healthy tissue, in the subcutaneous layer Percentage of wound debrided: 100 Instrument Used: 5mm curette Tissue Removed: yellow slough, devitalized tissue Severity: Fat Layer Exposed Amount of bleeding with debridement: Mild Bleeding Controlled with: Compression and gauze Patient tolerated procedure: Patient tolerated procedure well Assessment/Plan Active Problems (Last Reviewed 06/10/17 @ 13:50 by Mel Peralta) Stage II pressure ulcer of left buttock (Chronic) Nonhealing nonsurgical wound with fat layer exposed (Chronic) Dependence on renal dialysis (Chronic) CAD (coronary artery disease), autologous vein bypass graft (Chronic) H/O mitral valve replacement (Chronic) Current smoker (Chronic) H/O lung transplant (Chronic) Assessment: stage 2 pressure ulcer left buttock. nonhealing surgical wound medial right LE Plan: Manuel's ulcer was evaluated and her left buttock was debrided today. Will continue to treat her pressure ulcer with Sammi. Discussed offloading of her buttocks and increased protein intake to facilitate healing. Prescription given for a gel foam cushion given for her to use while sitting. Due to her multiple medical issues and chronic dialysis she is being placed on a palliative treatment plan. Encouraged smoking cessation. F/U in 1 week.
[2018-08-04 12:22] VITALS: BP 110/73; PULSE 80; RESP 18; TEMP 35.5; BMI 23.3
--- NOTE | 2018-08-04 17:05 | PCM.WC.PN ---
(1) Stage II pressure ulcer of left buttock Status: Chronic Current Visit: Yes Code(s): L89.322 - Pressure ulcer of left buttock, stage 2 (2) Nonhealing nonsurgical wound with fat layer exposed Status: Chronic Current Visit: Yes Code(s): T14.8XXA - Other injury of unspecified body region, initial encounter (3) Dependence on renal dialysis Status: Chronic Current Visit: Yes Code(s): Z99.2 - Dependence on renal dialysis (4) CAD (coronary artery disease), autologous vein bypass graft Status: Chronic Current Visit: Yes Qualifiers: Associated angina: angina presence unspecified Qualified Code(s): I25.810 - Atherosclerosis of coronary artery bypass graft(s) without angina pectoris Code(s): I25.810 - Atherosclerosis of coronary artery bypass graft(s) without angina pectoris (5) H/O mitral valve replacement Status: Chronic Current Visit: Yes Code(s): Z95.2 - Presence of prosthetic heart valve (6) Current smoker Status: Chronic Current Visit: Yes Code(s): F17.200 - Nicotine dependence, unspecified, uncomplicated (7) H/O lung transplant Status: Chronic Current Visit: Yes Code(s): Z94.2 - Lung transplant status Type of Wound Date of Service: 08/04/18 Chief Complaint: ulcer of left buttock and nonhealing surgical wound right leg History of Wound: Manuel is a 57 yo female who is on chronic dialysis and s/p recent CABG x 1 and mitral valve replacement that is here today for evaluation of a stage 2 pressure ulcer of her left buttock and nonhealing surgical wound of right medial thigh. She underwent CABG and mitral valve replacement in the beginning of May and developed a pressure ulcer of her left buttock while hospitalized. She has not been using anything on the ulcer. She also is concerned about the surgical site where her vein was harvested for her bypass graft. She follows up with the surgeon at the end of the month. She is on chronic dialysis due to nephrectomies. She also has a h/o lung transplant. She denies any fever, chills or erythema or odor. Progress of Wound: Manuel is here in follow up for pressure ulcer of her left buttock. She tolerated dressings and has been trying to offload her buttock as much as possible. She has increased her protein intake. She has had moderate amount of drainage from her ulcer/wounds and they are full thickness in depth. She denies increased pain, fever or chills. She refuses evaluation of her right leg wounds any longer and states that they are fine. - Physical Exam Vital Signs Temp Pulse Resp BP 96 F L 80 18 110/73 08/04/18 12:22 08/04/18 12:22 08/04/18 12:22 08/04/18 12:22 General: Alert, Oriented x3, Cooperative, No apparent distress HEENT: Atraumatic, Normocephalic Oral: Moist Mucosa Skin: Ulcer/ Wound Wound Measurements and Assessment WC - Nurse 1 - General Ulcer Measurement Start: 07/07/18 11:34 Freq: Status: Active Protocol: Activity Type Activity Date Activity User E-Sign Co-Sign Detail Recorded Client Recorded Date Recorded By Document 08/04/18 12:22 [facility] [id number] 08/04/18 12:24 [facility] 08/04/18 12:22 Wound Center Nurse 1 [Ulcer Assessment] #1- LT BUTTOCK -Combined with other wound No -Current Size (cm) - Length 0.1 -Current Size (cm) - Width 0.1 -Current Size (cm) - Depth 0.1 -Total Square Cm 0.01 -Epithelialization Large 67-100% -Tunneling No -Undermining/Tunneling No -Circular Undermining No -Exudate Amt None Present -Texture (Natty-wound Skin Appearance) Assessed Scarring -Moisture (Natty-wound Skin Appearance Assessed ) Dry/Scaly -Color (Natty-wound Skin Appearance) Assessed -Temperature (Natty-wound Skin No Abnormality Appearance) (Pt Warm) -Tenderness on Palpation (Natty-wound No Skin Appearance) -Ulcer Cleansing Rinsed/ Irrigated with Saline -Foul Odor after Cleansing No -Anesthetic Used 4% Lidocaine Solution WC - Nurse 2 - General Ulcer CM Notes Start: 07/07/18 11:34 Freq: Status: Active Protocol: Activity Type Activity Date Activity User E-Sign Co-Sign Detail Recorded Client Recorded Date Recorded By Document 08/04/18 12:47 AN [id number] 08/04/18 12:51 AN 08/04/18 12:47 Wound Center Nurse 2 [Procedure/Treatment] -Time 12:48 -Correct Patient Yes -Correct Side, Site, Position Yes -Correct Procedure Yes -Procedure Performed Yes -Type of Procedure Debridement -Clinical Debridement Subcutaneous -Post Debridement Size (cm) - Length 0.4 -Post Debridement Size (cm) - Width 0.2 -Post Debridement Size (cm) - Depth 0.1 -Total Square Cm 0.08 -Wound/Ulcer Outcome Not Healed -Ulcer Cleansing Rinsed/ Irrigated with Saline -Foul Odor after Cleansing No -Bioengineered Tissue No -Bleeding Controlled with Pressure -Offloading No -Treatment Response Procedure Tolerated Well [See Physician Procedure note for Specifics] Pain Scale: 0-10 Numeric [Pain] -Is Patient Pain Free? Yes Psych/Mental Status: Normal Affect, Appropriate Debridement Note Post-Debridement Measurements/Treatment WC - Nurse 2 - General Ulcer CM Notes Start: 07/07/18 11:34 Freq: Status: Active Protocol: Activity Type Activity Date Activity User E-Sign Co-Sign Detail Recorded Client Recorded Date Recorded By Document 07/07/18 12:54 DV [id number] 07/07/18 13:02 DV Document 07/14/18 12:59 DV [id number] 07/14/18 13:12 DV Document 07/21/18 12:30 DV [id number] 07/21/18 12:35 DV Document 07/28/18 12:36 DV [id number] 07/28/18 12:39 DV Document 08/04/18 12:47 AN [id number] 08/04/18 12:51 AN 07/07/18 07/14/18 07/21/18 12:54 12:59 12:30 Wound Center Nurse 2 #2 Medial RLE CLUSTER -Time 12:57 13:04 12:31 -Correct Patient Yes Yes Yes -Correct Side, Site, Position Yes Yes Yes -Correct Procedure Yes Yes No -Procedure Performed Yes Yes No -Type of Procedure Debridement Debridement -Clinical Debridement Subcutaneous Subcutaneous -Post Debridement Size (cm) - Length 6.5 6.1 -Post Debridement Size (cm) - Width 0.6 0.5 -Post Debridement Size (cm) - Depth 0.1 0.2 -Total Square Cm 3.90 3.05 -Wound/Ulcer Outcome Not Healed Not Healed -Ulcer Cleansing Rinsed/ Rinsed/ Irrigated with Irrigated with Saline Saline -Foul Odor after Cleansing No No -Bioengineered Tissue No No -Bleeding Controlled with Pressure Pressure -Offloading No No -Treatment Response Procedure Procedure Tolerated Well Tolerated Well #1- LT BUTTOCK -Time 12:56 13:06 12:31 -Correct Patient Yes Yes Yes -Correct Side, Site, Position Yes Yes Yes -Correct Procedure Yes Yes Yes -Procedure Performed Yes Yes Yes -Type of Procedure Debridement Debridement Debridement -Clinical Debridement Subcutaneous Subcutaneous Subcutaneous -Post Debridement Size (cm) - Length 1.6 1.1 0.8 -Post Debridement Size (cm) - Width 1.8 1.2 0.8 -Post Debridement Size (cm) - Depth 0.1 0.1 0.1 -Total Square Cm 2.88 1.32 0.64 -Wound/Ulcer Outcome Not Healed Not Healed Not Healed -Ulcer Cleansing Rinsed/ Rinsed/ Rinsed/ Irrigated with Irrigated with Irrigated with Saline Saline Saline -Foul Odor after Cleansing No No No -Bioengineered Tissue No No No -Bleeding Controlled with Pressure Pressure -Offloading No No -Treatment Response Procedure Procedure Procedure Tolerated Well Tolerated Well Tolerated Well Pain Scale: 0-10 Numeric Is Patient Pain Free? Yes Yes 07/28/18 08/04/18 12:36 12:47 [facility] 12[facility]37 -Correct Patient Yes -Correct Side, Site, Position Yes -Correct Procedure No -Procedure Performed No -Type of Procedure Debridement -Clinical Debridement Subcutaneous -Post Debridement Size (cm) - Length 0 -Post Debridement Size (cm) - Width 0 -Post Debridement Size (cm) - Depth 0 -Total Square Cm 0 -Wound/Ulcer Outcome -Ulcer Cleansing -Foul Odor after Cleansing -Bioengineered Tissue -Bleeding Controlled with -Offloading -Treatment Response #1- LT BUTTOCK -Time 12:38 12:48 -Correct Patient Yes Yes -Correct Side, Site, Position Yes Yes -Correct Procedure Yes Yes -Procedure Performed Yes Yes -Type of Procedure Debridement Debridement -Clinical Debridement Subcutaneous Subcutaneous -Post Debridement Size (cm) - Length 0.6 0.4 -Post Debridement Size (cm) - Width 0.5 0.2 -Post Debridement Size (cm) - Depth 0.1 0.1 -Total Square Cm 0.30 0.08 -Wound/Ulcer Outcome Not Healed Not Healed -Ulcer Cleansing Rinsed/ Rinsed/ Irrigated with Irrigated with Saline Saline -Foul Odor after Cleansing No No -Bioengineered Tissue No No -Bleeding Controlled with Pressure -Offloading Yes No -Treatment Response Procedure Procedure Tolerated Well Tolerated Well Pain Scale: 0-10 Numeric Is Patient Pain Free? Yes Yes Wound debrided: left buttock Laterality: Left Wound Grade/Stage: Stage II pressure ulcer Anesthesia Used: 5% Lidocaine Gel Depth: Down to and including healthy tissue, in the subcutaneous layer Percentage of wound debrided: 100 Instrument Used: 5mm curette Tissue Removed: yellow slough, devitalized tissue Severity: Fat Layer Exposed Amount of bleeding with debridement: Mild Bleeding Controlled with: Compression and gauze Patient tolerated procedure well Assessment/Plan Active Problems (Last Reviewed 06/10/17 @ 13:50 by Mel Peralta) Stage II pressure ulcer of left buttock (Chronic) Nonhealing nonsurgical wound with fat layer exposed (Chronic) Dependence on renal dialysis (Chronic) CAD (coronary artery disease), autologous vein bypass graft (Chronic) H/O mitral valve replacement (Chronic) Current smoker (Chronic) H/O lung transplant (Chronic) Assessment: stage 2 pressure ulcer left buttock. nonhealing surgical wound medial right LE Plan: Manuel's ulcer was evaluated and her left buttock was debrided today. Will continue to treat her pressure ulcer with Sammi. Discussed offloading of her buttocks and increased protein intake to facilitate healing. Prescription given for a gel foam cushion given for her to use while sitting but she did not get this yet. Due to her multiple medical issues and chronic dialysis she is being placed on a palliative treatment plan. Encouraged smoking cessation. F/U in 1 week.
--- NOTE | 2018-08-04 17:09 | PN.PCM_ITS ---
(1) Stage II pressure ulcer of left buttock Status: Chronic Current Visit: Yes Code(s): L89.322 - Pressure ulcer of left buttock, stage 2 (2) Nonhealing nonsurgical wound with fat layer exposed Status: Chronic Current Visit: Yes Code(s): T14.8XXA - Other injury of unspecified body region, initial encounter (3) Dependence on renal dialysis Status: Chronic Current Visit: Yes Code(s): Z99.2 - Dependence on renal dialysis (4) CAD (coronary artery disease), autologous vein bypass graft Status: Chronic Current Visit: Yes Qualifiers: Associated angina: angina presence unspecified Qualified Code(s): I25.810 - Atherosclerosis of coronary artery bypass graft(s) without angina pectoris Code(s): I25.810 - Atherosclerosis of coronary artery bypass graft(s) without angina pectoris (5) H/O mitral valve replacement Status: Chronic Current Visit: Yes Code(s): Z95.2 - Presence of prosthetic heart valve (6) Current smoker Status: Chronic Current Visit: Yes Code(s): F17.200 - Nicotine dependence, unspecified, uncomplicated (7) H/O lung transplant Status: Chronic Current Visit: Yes Code(s): Z94.2 - Lung transplant status Type of Wound Date of Service: 08/04/18 Chief Complaint: ulcer of left buttock and nonhealing surgical wound right leg History of Wound: Manuel is a 57 yo female who is on chronic dialysis and s/p recent CABG x 1 and mitral valve replacement that is here today for evaluation of a stage 2 pressure ulcer of her left buttock and nonhealing surgical wound of right medial thigh. She underwent CABG and mitral valve replacement in the beginning of May and developed a pressure ulcer of her left buttock while hospitalized. She has not been using anything on the ulcer. She also is concerned about the surgical site where her vein was harvested for her bypass graft. She follows up with the surgeon at the end of the month. She is on chronic dialysis due to nephrectomies. She also has a h/o lung transplant. She denies any fever, chills or erythema or odor. Progress of Wound: Manuel is here in follow up for pressure ulcer of her left buttock. She tolerated dressings and has been trying to offload her buttock as much as possible. She has increased her protein intake. She has had moderate amount of drainage from her ulcer/wounds and they are full thickness in depth. She denies increased pain, fever or chills. She refuses evaluation of her right leg wounds any longer and states that they are fine. - Physical Exam Vital Signs Temp Pulse Resp BP 96 F L 80 18 110/73 08/04/18 12:22 08/04/18 12:22 08/04/18 12:22 08/04/18 12:22 General: Alert, Oriented x3, Cooperative, No apparent distress HEENT: Atraumatic, Normocephalic Oral: Moist Mucosa Skin: Ulcer/ Wound Wound Measurements and Assessment WC - Nurse 1 - General Ulcer Measurement Start: 07/07/18 11:34 Freq: Status: Active Protocol: Activity Type Activity Date Activity User E-Sign Co-Sign Detail Recorded Client Recorded Date Recorded By Document 08/04/18 12:22 [facility] [id number] 08/04/18 12:24 [facility] 08/04/18 12:22 Wound Center Nurse 1 [Ulcer Assessment] #1- LT BUTTOCK -Combined with other wound No -Current Size (cm) - Length 0.1 -Current Size (cm) - Width 0.1 -Current Size (cm) - Depth 0.1 -Total Square Cm 0.01 -Epithelialization Large 67-100% -Tunneling No -Undermining/Tunneling No -Circular Undermining No -Exudate Amt None Present -Texture (Natty-wound Skin Appearance) Assessed Scarring -Moisture (Natty-wound Skin Appearance Assessed ) Dry/Scaly -Color (Natty-wound Skin Appearance) Assessed -Temperature (Natty-wound Skin No Abnormality Appearance) (Pt Warm) -Tenderness on Palpation (Natty-wound No Skin Appearance) -Ulcer Cleansing Rinsed/ Irrigated with Saline -Foul Odor after Cleansing No -Anesthetic Used 4% Lidocaine Solution WC - Nurse 2 - General Ulcer CM Notes Start: 07/07/18 11:34 Freq: Status: Active Protocol: Activity Type Activity Date Activity User E-Sign Co-Sign Detail Recorded Client Recorded Date Recorded By Document 08/04/18 12:47 AN [id number] 08/04/18 12:51 AN 08/04/18 12:47 Wound Center Nurse 2 [Procedure/Treatment] -Time 12:48 -Correct Patient Yes -Correct Side, Site, Position Yes -Correct Procedure Yes -Procedure Performed Yes -Type of Procedure Debridement -Clinical Debridement Subcutaneous -Post Debridement Size (cm) - Length 0.4 -Post Debridement Size (cm) - Width 0.2 -Post Debridement Size (cm) - Depth 0.1 -Total Square Cm 0.08 -Wound/Ulcer Outcome Not Healed -Ulcer Cleansing Rinsed/ Irrigated with Saline -Foul Odor after Cleansing No -Bioengineered Tissue No -Bleeding Controlled with Pressure -Offloading No -Treatment Response Procedure Tolerated Well [See Physician Procedure note for Specifics] Pain Scale: 0-10 Numeric [Pain] -Is Patient Pain Free? Yes Psych/Mental Status: Normal Affect, Appropriate Debridement Note Post-Debridement Measurements/Treatment WC - Nurse 2 - General Ulcer CM Notes Start: 07/07/18 11:34 Freq: Status: Active Protocol: Activity Type Activity Date Activity User E-Sign Co-Sign Detail Recorded Client Recorded Date Recorded By Document 07/07/18 12:54 DV [id number] 07/07/18 13:02 DV Document 07/14/18 12:59 DV [id number] 07/14/18 13:12 DV Document 07/21/18 12:30 DV [id number] 07/21/18 12:35 DV Document 07/28/18 12:36 DV [id number] 07/28/18 12:39 DV Document 08/04/18 12:47 AN [id number] 08/04/18 12:51 AN 07/07/18 07/14/18 07/21/18 12:54 12:59 12:30 Wound Center Nurse 2 #2 Medial RLE CLUSTER -Time 12:57 13:04 12:31 -Correct Patient Yes Yes Yes -Correct Side, Site, Position Yes Yes Yes -Correct Procedure Yes Yes No -Procedure Performed Yes Yes No -Type of Procedure Debridement Debridement -Clinical Debridement Subcutaneous Subcutaneous -Post Debridement Size (cm) - Length 6.5 6.1 -Post Debridement Size (cm) - Width 0.6 0.5 -Post Debridement Size (cm) - Depth 0.1 0.2 -Total Square Cm 3.90 3.05 -Wound/Ulcer Outcome Not Healed Not Healed -Ulcer Cleansing Rinsed/ Rinsed/ Irrigated with Irrigated with Saline Saline -Foul Odor after Cleansing No No -Bioengineered Tissue No No -Bleeding Controlled with Pressure Pressure -Offloading No No -Treatment Response Procedure Procedure Tolerated Well Tolerated Well #1- LT BUTTOCK -Time 12:56 13:06 12:31 -Correct Patient Yes Yes Yes -Correct Side, Site, Position Yes Yes Yes -Correct Procedure Yes Yes Yes -Procedure Performed Yes Yes Yes -Type of Procedure Debridement Debridement Debridement -Clinical Debridement Subcutaneous Subcutaneous Subcutaneous -Post Debridement Size (cm) - Length 1.6 1.1 0.8 -Post Debridement Size (cm) - Width 1.8 1.2 0.8 -Post Debridement Size (cm) - Depth 0.1 0.1 0.1 -Total Square Cm 2.88 1.32 0.64 -Wound/Ulcer Outcome Not Healed Not Healed Not Healed -Ulcer Cleansing Rinsed/ Rinsed/ Rinsed/ Irrigated with Irrigated with Irrigated with Saline Saline Saline -Foul Odor after Cleansing No No No -Bioengineered Tissue No No No -Bleeding Controlled with Pressure Pressure -Offloading No No -Treatment Response Procedure Procedure Procedure Tolerated Well Tolerated Well Tolerated Well Pain Scale: 0-10 Numeric Is Patient Pain Free? Yes Yes 07/28/18 08/04/18 12:36 12:47 [facility] -Correct Patient Yes -Correct Side, Site, Position Yes -Correct Procedure No -Procedure Performed No -Type of Procedure Debridement -Clinical Debridement Subcutaneous -Post Debridement Size (cm) - Length 0 -Post Debridement Size (cm) - Width 0 -Post Debridement Size (cm) - Depth 0 -Total Square Cm 0 -Wound/Ulcer Outcome -Ulcer Cleansing -Foul Odor after Cleansing -Bioengineered Tissue -Bleeding Controlled with -Offloading -Treatment Response #1- LT BUTTOCK -Time 12:38 12:48 -Correct Patient Yes Yes -Correct Side, Site, Position Yes Yes -Correct Procedure Yes Yes -Procedure Performed Yes Yes -Type of Procedure Debridement Debridement -Clinical Debridement Subcutaneous Subcutaneous -Post Debridement Size (cm) - Length 0.6 0.4 -Post Debridement Size (cm) - Width 0.5 0.2 -Post Debridement Size (cm) - Depth 0.1 0.1 -Total Square Cm 0.30 0.08 -Wound/Ulcer Outcome Not Healed Not Healed -Ulcer Cleansing Rinsed/ Rinsed/ Irrigated with Irrigated with Saline Saline -Foul Odor after Cleansing No No -Bioengineered Tissue No No -Bleeding Controlled with Pressure -Offloading Yes No -Treatment Response Procedure Procedure Tolerated Well Tolerated Well Pain Scale: 0-10 Numeric Is Patient Pain Free? Yes Yes Wound debrided: left buttock Laterality: Left Wound Grade/Stage: Stage II pressure ulcer Anesthesia Used: 5% Lidocaine Gel Depth: Down to and including healthy tissue, in the subcutaneous layer Percentage of wound debrided: 100 Instrument Used: 5mm curette Tissue Removed: yellow slough, devitalized tissue Severity: Fat Layer Exposed Amount of bleeding with debridement: Mild Bleeding Controlled with: Compression and gauze Patient tolerated procedure well Assessment/Plan Active Problems (Last Reviewed 06/10/17 @ 13:50 by Mel Peralta) Stage II pressure ulcer of left buttock (Chronic) Nonhealing nonsurgical wound with fat layer exposed (Chronic) Dependence on renal dialysis (Chronic) CAD (coronary artery disease), autologous vein bypass graft (Chronic) H/O mitral valve replacement (Chronic) Current smoker (Chronic) H/O lung transplant (Chronic) Assessment: stage 2 pressure ulcer left buttock. nonhealing surgical wound medial right LE Plan: Manuel's ulcer was evaluated and her left buttock was debrided today. Will continue to treat her pressure ulcer with Sammi. Discussed offloading of her buttocks and increased protein intake to facilitate healing. Prescription given for a gel foam cushion given for her to use while sitting but she did not get this yet. Due to her multiple medical issues and chronic dialysis she is being placed on a palliative treatment plan. Encouraged smoking cessation. F/U in 1 week.
== END 2018-08-06 23:59 ==
LOC: WC 12:15
PROVIDERS: Visit Provider Family Medicine
DX: T81.89XA Other complications of procedures, not elsewhere classified, initial encounter (principal); Y83.8 Other surgical procedures as the cause of abnormal reaction of the patient, or of later complication, without mention of misadventure at the time of the procedure; Z95.1 Presence of aortocoronary bypass graft; I25.10 Atherosclerotic heart disease of native coronary artery without angina pectoris; Z94.2 Lung transplant status; L89.322 Pressure ulcer of left buttock, stage 2; F17.210 Nicotine dependence, cigarettes, uncomplicated
CPT/HCPCS: 11042; 87070; 87075; 87205; 87640; 99213; G0463

== ENCOUNTER → 2018-08-10 08:53 | Outpatient (CLI) | payer MEDICARE, SELFPAY ==
[2018-08-04 12:22] VITALS: BMI 23.3
--- NOTE | 2018-08-10 09:01 | PCM.CR.HP2 ---
CR - History & Physical - History of Present Cardiac Event Onset Date: Enter Onset Date of cardiac illnesses in Comment field below - Medications Home Medications: Ambulatory Orders Medication Instructions Recorded aspirin 81 mg chewable tablet 81 mg PO ONCE 06/10/17 gabapentin 100 mg capsule 200 mg PO QHS 90 Days #180 06/10/17 Atorvastatin Calcium 10 mg PO DAILY 06/28/18 Mycophenolate Mofetil [Cellcept] 500 mg PO BID 06/28/18 Pantoprazole Sodium [Protonix] 40 mg PO DAILY 07/07/18 Sevelamer Carbonate [Renvela] 3,200 mg BC TID 07/07/18 Vit B Cplx C No.13/Folic AC/D3 1 each PO DAILY 07/07/18 [Nephrocaps Qt Tablet] - Allergies Allergies/Adverse Reactions: Allergies diazepam [From Valium] Allergy (Verified 06/10/17 13:47) Unknown Gadolinium-MRI Contrast Medium Allergy (Verified 06/10/17 13:47) Unknown vancomycin Allergy (Verified 06/28/18 12:16) Unknown IV DYE Allergy (Uncoded 06/28/18 12:16) Unknown Past Medical History - Past Medical Illness Medical History: Past Medical History (Last Updated 06/10/17 @ 13:50 by Mel Peralta) Kidney disease N28.9 - Past Surgical History Surgical History: coronary bypass surgery, - - lung transplant, nephrectomy, A-V fistula for dialysis
== END ==
DX: Z95.1 Presence of aortocoronary bypass graft (principal)

== ENCOUNTER 2018-08-18 12:15 | Outpatient (RCR) | payer MEDICARE, SELFPAY ==
[2018-08-11 12:14] VITALS: BP 114/74; PULSE 80; RESP 15; TEMP 36; BMI 23.3
--- NOTE | 2018-08-11 18:00 | PCM.WC.PN ---
(1) Stage II pressure ulcer of left buttock Status: Chronic Current Visit: Yes Code(s): L89.322 - Pressure ulcer of left buttock, stage 2 (2) Dependence on renal dialysis Status: Chronic Current Visit: Yes Code(s): Z99.2 - Dependence on renal dialysis (3) CAD (coronary artery disease), autologous vein bypass graft Status: Chronic Current Visit: No Qualifiers: Code(s): I25.810 - Atherosclerosis of coronary artery bypass graft(s) without angina pectoris (4) Current smoker Status: Chronic Current Visit: Yes Code(s): F17.200 - Nicotine dependence, unspecified, uncomplicated (5) H/O lung transplant Status: Chronic Current Visit: No Code(s): Z94.2 - Lung transplant status Type of Wound Chief Complaint: ulcer of left buttock History of Wound: Manuel is a 57 yo female who is on chronic dialysis and s/p recent CABG x 1 and mitral valve replacement that is here today for evaluation of a stage 2 pressure ulcer of her left buttock and nonhealing surgical wound of right medial thigh. She underwent CABG and mitral valve replacement in the beginning of May and developed a pressure ulcer of her left buttock while hospitalized. She has not been using anything on the ulcer. She also is concerned about the surgical site where her vein was harvested for her bypass graft. She follows up with the surgeon at the end of the month. She is on chronic dialysis due to nephrectomies. She also has a h/o lung transplant. She denies any fever, chills or erythema or odor. Progress of Wound: Manuel's left buttock ulcer is improved again today. She is tolerating the treatment well. She denies any current symptoms of infection. She continues to have dialysis three times per week and has not obtained a gel cushion but has been offloading as much as possible. - Physical Exam Vital Signs Temp Pulse Resp BP 96.8 F L 80 15 114/74 08/11/18 12:14 08/11/18 12:14 08/11/18 12:14 08/11/18 12:14 General: Alert, Oriented x3, Cooperative, No apparent distress HEENT: Atraumatic, Normocephalic Oral: Moist Mucosa Skin: Ulcer/ Wound Wound Measurements and Assessment WC - Nurse 1 - General Ulcer Measurement Start: 08/11/18 12:13 Freq: Status: Active Protocol: Activity Type Activity Date Activity User E-Sign Co-Sign Detail Recorded Client Recorded Date Recorded By Document 08/11/18 12:14 NE [id number] 08/11/18 12:19 NE 08/11/18 12:14 Wound Center Nurse 1 [Ulcer Assessment] #1- LT BUTTOCK -Current Size (cm) - Length 0.1 -Current Size (cm) - Width 0.1 -Current Size (cm) - Depth 0.1 -Total Square Cm 0.01 -Photo Taken Yes -Epithelialization Large 67-100% Psych/Mental Status: Normal Affect, Appropriate Debridement Note post-debridement measurements 0.1cm length 0.1 cm depth 0.1 cm width Wound debrided: left buttock Laterality: Left Wound Grade/Stage: Stage II Type of Debridement: Excisional debridement Anesthesia Used: 4% Lidocaine Solution, 5% Lidocaine Gel Depth: Down to and including healthy tissue, in the subcutaneous layer Percentage of wound debrided: 100 Instrument Used: 3mm curette Tissue Removed: yellow slough, devitalized tissue Severity: Fat Layer Exposed Amount of bleeding with debridement: Mild Bleeding Controlled with: Compression and gauze Patient tolerated procedure well Assessment/Plan Active Problems (Last Updated 06/10/17 @ 13:50 by Mel Peralta) Stage II pressure ulcer of left buttock (Chronic) Dependence on renal dialysis (Chronic) Current smoker (Chronic) Assessment: stage 2 pressure ulcer left buttock. nonhealing surgical wound medial right LE Plan: Manuel's ulcer was evaluated and her left buttock was debrided today. Will continue to treat her pressure ulcer with Sammi. Discussed offloading of her buttocks and increased protein intake to facilitate healing. Prescription given for a gel foam cushion given for her to use while sitting but she did not get this yet. Due to her multiple medical issues and chronic dialysis she is being placed on a palliative treatment plan. Encouraged smoking cessation. F/U in 1 week.
[2018-08-18 12:14] VITALS: BP 119/81; PULSE 79; RESP 16; TEMP 36.6; BMI 23.3
--- NOTE | 2018-08-18 16:21 | PCM.WC.PN ---
(1) Stage II pressure ulcer of left buttock Status: Chronic Current Visit: Yes Code(s): L89.322 - Pressure ulcer of left buttock, stage 2 (2) Dependence on renal dialysis Status: Chronic Current Visit: Yes Code(s): Z99.2 - Dependence on renal dialysis (3) CAD (coronary artery disease), autologous vein bypass graft Status: Chronic Current Visit: No Qualifiers: Code(s): I25.810 - Atherosclerosis of coronary artery bypass graft(s) without angina pectoris (4) Current smoker Status: Chronic Current Visit: Yes Code(s): F17.200 - Nicotine dependence, unspecified, uncomplicated (5) H/O lung transplant Status: Chronic Current Visit: No Code(s): Z94.2 - Lung transplant status Type of Wound Date of Service: 08/18/18 Chief Complaint: ulcer of left buttock History of Wound: Manuel is a 57 yo female who is on chronic dialysis and s/p recent CABG x 1 and mitral valve replacement that is here today for evaluation of a stage 2 pressure ulcer of her left buttock and nonhealing surgical wound of right medial thigh. She underwent CABG and mitral valve replacement in the beginning of May and developed a pressure ulcer of her left buttock while hospitalized. She has not been using anything on the ulcer. She also is concerned about the surgical site where her vein was harvested for her bypass graft. She follows up with the surgeon at the end of the month. She is on chronic dialysis due to nephrectomies. She also has a h/o lung transplant. She denies any fever, chills or erythema or odor. Progress of Wound: Manuel's left buttock ulcer is healed today. - Physical Exam Vital Signs Temp Pulse Resp BP 97.8 F 79 16 119/81 H 08/18/18 12:14 08/18/18 12:14 08/18/18 12:14 08/18/18 12:14 General: Alert, Oriented x3, Cooperative, No apparent distress HEENT: Atraumatic, Normocephalic Oral: Moist Mucosa Skin: Ulcer/ Wound Wound Measurements and Assessment WC - Nurse 1 - General Ulcer Measurement Start: 08/11/18 12:13 Freq: Status: Active Protocol: Activity Type Activity Date Activity User E-Sign Co-Sign Detail Recorded Client Recorded Date Recorded By Document 08/18/18 12:14 BMF [id number] 08/18/18 12:16 [facility] 08/18/18 12:14 Wound Center Nurse 1 [Ulcer Assessment] #1- LT BUTTOCK -Combined with other wound No -Current Size (cm) - Length 0 -Current Size (cm) - Width 0 -Current Size (cm) - Depth 0 -Total Square Cm 0 -Date of Last Picture (Recall this 08/18/18 field) -Photo Taken Yes -Epithelialization Large 67-100% -Texture (Natty-wound Skin Appearance) Assessed Scarring -Moisture (Natty-wound Skin Appearance Assessed ) Dry/Scaly -Color (Natty-wound Skin Appearance) No Abnormality Assessed WC - Nurse 2 - General Ulcer CM Notes Start: 08/11/18 12:13 Freq: Status: Active Protocol: Activity Type Activity Date Activity User E-Sign Co-Sign Detail Recorded Client Recorded Date Recorded By Document 08/18/18 12:37 DV [id number] 08/18/18 12:39 DV 08/18/18 12:37 Wound Center Nurse 2 [Procedure/Treatment] -Time 12:37 -Correct Patient Yes -Correct Side, Site, Position Yes -Procedure Performed No -Post Debridement Size (cm) - Length 0 -Post Debridement Size (cm) - Width 0 -Post Debridement Size (cm) - Depth 0 -Total Square Cm 0 -Wound/Ulcer Outcome Healed- Epithelialized [See Physician Procedure note for Specifics] Pain Scale: 0-10 Numeric [Pain] -Is Patient Pain Free? Yes Psych/Mental Status: Normal Affect, Appropriate Debridement Note Post-Debridement Measurements/Treatment WC - Nurse 2 - General Ulcer CM Notes Start: 08/11/18 12:13 Freq: Status: Active Protocol: Activity Type Activity Date Activity User E-Sign Co-Sign Detail Recorded Client Recorded Date Recorded By Document 08/11/18 12:30 DV [id number] 08/11/18 18:10 DV Document 08/18/18 12:37 DV [id number] 08/18/18 12:39 DV 08/11/18 08/18/18 12:30 12:37 Wound Center Nurse 2 #1- LT BUTTOCK -Time 12:30 12:37 -Correct Patient Yes Yes -Correct Side, Site, Position Yes Yes -Correct Procedure Yes -Procedure Performed Yes No -Type of Procedure Debridement -Clinical Debridement Selective -Post Debridement Size (cm) - Length 0.1 0 -Post Debridement Size (cm) - Width 0.1 0 -Post Debridement Size (cm) - Depth 0.1 0 -Total Square Cm 0.01 0 -Wound/Ulcer Outcome Not Healed Healed- Epithelialized -Ulcer Cleansing Rinsed/ Irrigated with Saline -Foul Odor after Cleansing No -Bioengineered Tissue No -Bleeding Controlled with Pressure -Offloading No -Treatment Response Procedure Tolerated Well Pain Scale: 0-10 Numeric Is Patient Pain Free? Yes Yes Wound debrided: left buttock Laterality: Left No debridement was completed today - wound is healed Assessment/Plan Active Problems (Last Updated 06/10/17 @ 13:50 by Mel Peralta) Stage II pressure ulcer of left buttock (Chronic) Dependence on renal dialysis (Chronic) Current smoker (Chronic) Assessment: stage 2 pressure ulcer left buttock. nonhealing surgical wound medial right LE Plan: Rubio ulcer was evaluated and is healed today. Discussed offloading of her buttocks maintain healing. Encouraged smoking cessation. She is discharged at this time and will follow up as needed.
--- NOTE | 2018-08-18 16:24 | PN.PCM_ITS ---
(1) Stage II pressure ulcer of left buttock Status: Chronic Current Visit: Yes Code(s): L89.322 - Pressure ulcer of left buttock, stage 2 (2) Dependence on renal dialysis Status: Chronic Current Visit: Yes Code(s): Z99.2 - Dependence on renal dialysis (3) CAD (coronary artery disease), autologous vein bypass graft Status: Chronic Current Visit: No Qualifiers: Code(s): I25.810 - Atherosclerosis of coronary artery bypass graft(s) without angina pectoris (4) Current smoker Status: Chronic Current Visit: Yes Code(s): F17.200 - Nicotine dependence, unspecified, uncomplicated (5) H/O lung transplant Status: Chronic Current Visit: No Code(s): Z94.2 - Lung transplant status Type of Wound Date of Service: 08/18/18 Chief Complaint: ulcer of left buttock History of Wound: Manuel is a 57 yo female who is on chronic dialysis and s/p recent CABG x 1 and mitral valve replacement that is here today for evaluation of a stage 2 pressure ulcer of her left buttock and nonhealing surgical wound of right medial thigh. She underwent CABG and mitral valve replacement in the beginning of May and developed a pressure ulcer of her left buttock while hospitalized. She has not been using anything on the ulcer. She also is concerned about the surgical site where her vein was harvested for her bypass graft. She follows up with the surgeon at the end of the month. She is on chronic dialysis due to nephrectomies. She also has a h/o lung transplant. She denies any fever, chills or erythema or odor. Progress of Wound: Manuel's left buttock ulcer is healed today. - Physical Exam Vital Signs Temp Pulse Resp BP 97.8 F 79 16 119/81 H 08/18/18 12:14 08/18/18 12:14 08/18/18 12:14 08/18/18 12:14 General: Alert, Oriented x3, Cooperative, No apparent distress HEENT: Atraumatic, Normocephalic Oral: Moist Mucosa Skin: Ulcer/ Wound Wound Measurements and Assessment WC - Nurse 1 - General Ulcer Measurement Start: 08/11/18 12:13 Freq: Status: Active Protocol: Activity Type Activity Date Activity User E-Sign Co-Sign Detail Recorded Client Recorded Date Recorded By Document 08/18/18 12:14 BMF [id number] 08/18/18 12:16 [facility] 08/18/18 12:14 Wound Center Nurse 1 [Ulcer Assessment] #1- LT BUTTOCK -Combined with other wound No -Current Size (cm) - Length 0 -Current Size (cm) - Width 0 -Current Size (cm) - Depth 0 -Total Square Cm 0 -Date of Last Picture (Recall this 08/18/18 field) -Photo Taken Yes -Epithelialization Large 67-100% -Texture (Natty-wound Skin Appearance) Assessed Scarring -Moisture (Natty-wound Skin Appearance Assessed ) Dry/Scaly -Color (Natty-wound Skin Appearance) No Abnormality Assessed WC - Nurse 2 - General Ulcer CM Notes Start: 08/11/18 12:13 Freq: Status: Active Protocol: Activity Type Activity Date Activity User E-Sign Co-Sign Detail Recorded Client Recorded Date Recorded By Document 08/18/18 12:37 DV [id number] 08/18/18 12:39 DV 08/18/18 12:37 Wound Center Nurse 2 [Procedure/Treatment] -Time 12:37 -Correct Patient Yes -Correct Side, Site, Position Yes -Procedure Performed No -Post Debridement Size (cm) - Length 0 -Post Debridement Size (cm) - Width 0 -Post Debridement Size (cm) - Depth 0 -Total Square Cm 0 -Wound/Ulcer Outcome Healed- Epithelialized [See Physician Procedure note for Specifics] Pain Scale: 0-10 Numeric [Pain] -Is Patient Pain Free? Yes Psych/Mental Status: Normal Affect, Appropriate Debridement Note Post-Debridement Measurements/Treatment WC - Nurse 2 - General Ulcer CM Notes Start: 08/11/18 12:13 Freq: Status: Active Protocol: Activity Type Activity Date Activity User E-Sign Co-Sign Detail Recorded Client Recorded Date Recorded By Document 08/11/18 12:30 DV [id number] 08/11/18 18:10 DV Document 08/18/18 12:37 DV [id number] 08/18/18 12:39 DV 08/11/18 08/18/18 12:30 12:37 Wound Center Nurse 2 #1- LT BUTTOCK -Time 12:30 12:37 -Correct Patient Yes Yes -Correct Side, Site, Position Yes Yes -Correct Procedure Yes -Procedure Performed Yes No -Type of Procedure Debridement -Clinical Debridement Selective -Post Debridement Size (cm) - Length 0.1 0 -Post Debridement Size (cm) - Width 0.1 0 -Post Debridement Size (cm) - Depth 0.1 0 -Total Square Cm 0.01 0 -Wound/Ulcer Outcome Not Healed Healed- Epithelialized -Ulcer Cleansing Rinsed/ Irrigated with Saline -Foul Odor after Cleansing No -Bioengineered Tissue No -Bleeding Controlled with Pressure -Offloading No -Treatment Response Procedure Tolerated Well Pain Scale: 0-10 Numeric Is Patient Pain Free? Yes Yes Wound debrided: left buttock Laterality: Left No debridement was completed today - wound is healed Assessment/Plan Active Problems (Last Updated 06/10/17 @ 13:50 by Mel Peralta) Stage II pressure ulcer of left buttock (Chronic) Dependence on renal dialysis (Chronic) Current smoker (Chronic) Assessment: stage 2 pressure ulcer left buttock. nonhealing surgical wound medial right LE Plan: Rubio ulcer was evaluated and is healed today. Discussed offloading of her buttocks maintain healing. Encouraged smoking cessation. She is discharged at this time and will follow up as needed.
== END 2018-09-05 23:59 | disposition home or self-care (01) ==
LOC: WC 12:15
DX: L89.322 Pressure ulcer of left buttock, stage 2 (principal); I25.10 Atherosclerotic heart disease of native coronary artery without angina pectoris; Z94.2 Lung transplant status; F17.200 Nicotine dependence, unspecified, uncomplicated; Z95.1 Presence of aortocoronary bypass graft; Z95.2 Presence of prosthetic heart valve
CPT/HCPCS: 97597; 99212; G0463

== ENCOUNTER → 2021-09-29 | Outpatient (CLI) | payer MEDICARE, SELFPAY ==
--- NOTE | 2021-09-29 09:25 | BI_ITS ---
MAMMOGRAPHY - BILATERAL SCREENING REASON FOR EXAM: Female, 61 years old. Routine annual screening examination. PERTINENT HISTORY: Non-contributory. TECHNIQUE: Digital bilateral breast bebeto (3D mammographic acquisition) in the CC and MLO projections. 2-D mediolateral oblique (MLO) and craniocaudad (CC) views of both breasts were obtained. CAD: Full Field Digital Mammography with Computer Added Detection was performed. COMPARISON: Mammogram from 03/04/2017, 03/03/2016. FINDINGS: Breast Composition: There are scattered areas of fibroglandular density. There are no dominant masses or suspicious calcifications. Stable benign-appearing bilateral calcifications. No other significant abnormalities are identified. There has been no significant change since the prior study. BI/SCRN MAMM (CAD)W/BEBETO BILAT IMPRESSION: Stable bilateral screening mammogram. Yearly follow-up mammogram recommended. (A) ASSESSMENT CATEGORY: BIRADS Category 2: Benign. A letter regarding these results will be sent to the patient by the facility within 30 days. BR2 Approximately 10% of breast cancers are not detected by mammography. A normal mammogram should not delay biopsy of a clinically suspicious abnormality. [id number] Electronically Signed: Negro Jacques, at 8:31 EDT ,
== END | disposition home or self-care (01) ==
PROVIDERS: Visit Provider Student in an Organized Health Care Education/Training Program
DX: Z12.31 Encounter for screening mammogram for malignant neoplasm of breast (principal)
CPT/HCPCS: 77063; 77067

== ENCOUNTER 2021-10-21 05:59 | Emergency (ER) | payer MEDICARE, SELFPAY ==
[2021-10-21 06:00] VITALS: BP 108/43; PULSE 82; RESP 15; TEMP 36.5; O2SAT 100; BMI 27.4
--- NOTE | 2021-10-21 06:21 | RAD_ITS ---
EXAM: XR Elbow Min 3 Views RIGHT HISTORY: injury TECHNIQUE: XR Elbow Min 3 Views RIGHT COMPARISON: None. LIMITATIONS: None. FINDINGS: 3 views of the right elbow were obtained. No posterior fat pad elevation. No definite fracture. No dislocation. Vascular calcifications. RAD/Elbow min 3 Views IMPRESSION: No acute fracture identified. Electronically Signed: Kan Mcdermott MD at 7:43 EDT ,
--- NOTE | 2021-10-21 06:21 | RAD_ITS ---
EXAM: XR Forearm 2 Views RIGHT HISTORY: injury TECHNIQUE: XR Forearm 2 Views RIGHT COMPARISON: None. LIMITATIONS: None. FINDINGS: Frontal and lateral views of the right forearm were obtained. No acute fracture is identified. Extensive vascular calcifications. RAD/Forearm 2 Views IMPRESSION: No acute fracture identified. Electronically Signed: Kan Mcdermott MD at 7:46 EDT ,
--- NOTE | 2021-10-21 06:21 | RAD_ITS ---
EXAM: XR Knee 3 Views RIGHT HISTORY: injury TECHNIQUE: XR Knee 3 Views RIGHT COMPARISON: None. LIMITATIONS: None. FINDINGS: Views of the right knee were obtained. No acute fracture identified. No gross joint effusion. RAD/Knee 3 Views IMPRESSION: No acute fracture identified. Electronically Signed: Kan Mcdermott MD at 7:50 EDT ,
--- NOTE | 2021-10-21 06:21 | CT_ITS ---
EXAM: CT brain without IV contrast. HISTORY: head injury TECHNIQUE: No intravenous contrast. COMPARISON: None. LIMITATIONS: None. BRAIN: Mild involutional change. Mild low attenuation bilaterally within the deep white matter, likely secondary to chronic microvascular ischemia. VENTRICLES: No hydrocephalus. EXTRA-AXIAL SPACES: No acute hemorrhage. CALVARIUM/SKULL BASE: No acute fracture. FACE/SINUSES: No significant abnormality. SOFT TISSUES: Hematoma in the right frontotemporal scalp. OTHER: None. CONCLUSION: Scalp hematoma. No acute intracranial abnormality. Electronically Signed: Kan Mcdermott MD at 7:26 EDT , CT/Brain/Head without Contrast IMPRESSION: undefined
--- NOTE | 2021-10-21 06:21 | CT_ITS ---
EXAM: CT cervical spine. HISTORY: head injury TECHNIQUE: No intravenous contrast. COMPARISON: None. LIMITATIONS: None. FRACTURES: None. SPINAL CANAL: No significant stenosis. DEGENERATIVE CHANGE: No significant degenerative change. SOFT TISSUE: Normal. OTHER: None. CONCLUSION: No acute fracture. Electronically Signed: Kan Mcdermott MD at 7:32 EDT , CT/Spine Cervical without Contras IMPRESSION: undefined
[2021-10-21] MEDS: Morphine 4 MG/ML Syringe IM (07:20)
[2021-10-21] MEDS: Diphth,Pertuss(Acell),Tet Vac 0.5 ML Vial IM (07:21)
[2021-10-21] MEDS: Ondansetron ODT 4 MG Tablet PO (07:22)
--- NOTE | 2021-10-21 08:23 | EX.ED.DYSGE1 ---
HPI History of Present Illness Chief Complaint: Fall Narrative Narrative: Patient is a 61-year-old female with past medical history of renal disease on dialysis who gets treatment Tuesday and Tuesday. She states she was walking into dialysis this morning when she tripped and fell and landed on her right side. She does states she struck her head but denies any loss of consciousness. She states that she does not take any blood thinners other than a baby aspirin. She states she did not get up and walk following the trauma she was placed into a wheelchair at dialysis. However with the fall and the injury sustained to her arm and knee she was sent to the hospital for evaluation. [facility] Medical History Kidney disease Home Medications aspirin 81 mg chewable tablet 81 mg PO ONCE 06/10/17 [History Last Taken Unknown] atorvastatin 10 mg tablet 10 mg PO DAILY 06/28/18 [History Last Taken Unknown] Bcomplex-C #13-folic acid 1 mg-vit D3 1,750 unit disintegrating tablet (Nephrocaps Qt) 1 ea PO DAILY 07/07/18 [History Last Taken Unknown] pantoprazole 40 mg tablet,delayed release 40 mg PO DAILY 07/07/18 [History Last Taken Unknown] sevelamer carbonate 800 mg tablet (Renvela) 3,200 mg BC TID 07/07/18 [History Last Taken Unknown] cholecalciferol (vitamin D3) 50 mcg (2,000 unit) capsule 50 mcg PO DAILY 10/21/21 [History Last Taken Unknown] metoprolol tartrate 50 mg tablet (Lopressor) 50 mg PO BID 10/21/21 [History Last Taken Unknown] nitroglycerin 0.4 mg sublingual tablet 0.4 mg sublingual Q5M PRN Pain 10/21/21 [History Last Taken Unknown] ondansetron 4 mg disintegrating tablet 4 mg PO TID PRN PRN nausea and vomiting #21 tabs 10/21/21 [Rx Last Taken Unknown] oxycodone-acetaminophen 5 mg-325 mg tablet (Percocet) 1 tab PO Q6H PRN pain 3 days #12 tabs 10/21/21 [Rx Last Taken Unknown] prednisolone 5 mg tablet 5 mg PO DAILY 10/21/21 [History Last Taken Unknown] sulfamethoxazole 400 mg-trimethoprim 80 mg tablet 1 tab PO DAILY 10/21/21 [History Last Taken Unknown] tacrolimus 1 mg capsule, immediate-release 1 mg PO DAILY 10/21/21 [History Last Taken Unknown] Allergy/AdvReac Type Severity Reaction Status Date / Time diazepam [From Valium] Allergy Unknown Verified 10/21/21 06:32 Gadolinium-MRI Contrast Allergy Unknown Verified 10/21/21 06:32 Medium vancomycin Allergy Unknown Verified 10/21/21 06:32 IV DYE Allergy Unknown Uncoded 10/21/21 06:32 Social History (Updated 06/10/17 @ 16:43 by Tiburcio GERARD, PA) Smoking Status: Former smoker alcohol intake: never ROS ROS ED Constitutional Constitutional ED: Denies chills or fever(s) Eyes Eyes: Denies change in vision ENT ENT ED: Denies sore throat Cardiovascular Cardiovascular: Denies chest pain Respiratory/Chest Respiratory/Chest: Denies cough or dyspnea Gastrointestinal Gastrointestinal: Denies abdominal pain, diarrhea, nausea or vomiting Genitourinary Genitourinary ED: Denies dysuria Musculoskeletal Musculoskeletal: Reports other Details: Positive right elbow and knee pain ; Denies back pain, myalgias or neck pain Integumentary Reports other Details: Positive laceration/skin tear right elbow and knee ; Denies rash Neurologic Neurologic: Denies headache(s) Hematologic/Lymphatic Hematologic/Lymphatic: Denies easy bleeding or easy bruising EXAM Physical Exam Const Vital Signs: 10/21/21 06:00 10/21/21 06:46 Temperature 97.7 F L Temperature Source Temporal Pulse Rate 82 Respiratory Rate 15 Respiratory Effort Normal Non-Labored Respiratory Depth Normal Respiratory Pattern Normal Blood Pressure 108/43 L Blood Pressure Mean 64 Pulse Ox 100 Oxygen Delivery Method Room Air Room Air Positive well nourished and well developed General Appearance ED: well developed HEENT Reports moist mucous membranes HEENT Narrative: Patient has a 2 x 2cm hematoma along the right temporal portion of the scalp without signs of depressed or basilar skull fracture Eyes PERRL and EOMs intact bilaterally Neck supple Neck Narrative: No bony deformity or step-off of the cervical spine no midline pain with palpation Chest Wall palpation of chest normal Resp normal respiratory effort and clear to auscultation bilaterally Cardio regular rate and regular rhythm GI normal to inspection, nondistended, normoactive bowel sounds, non-tender, non-distended and no masses Auscultation: normoactive bowel sounds Palpation: soft Back/Spine Back/Spine Narrative: No bony deformity or step-off of the thoracic or lumbar spine no midline pain with palpation Extremity Extremity Narrative: Pelvis is stable there is no shortening or external rotation of either lower extremity. Patient has a small prepatellar effusion of the right knee without obvious bony deformity. Patellar tendon is intact and knee ligaments are stable. There are multiple skin tears along the lateral aspect of the right knee as well with minimal ooze of blood and no foreign body. Right upper extremity is neurovascularly. Patient has a large 3 x 8 skin tear to the lateral aspect of the right forearm. There is minimal ooze of blood without foreign body noted. There is no obvious bony deformity or joint effusion. Patient does however have full active range of motion. Neuro oriented x3 and CN's II-XII intact bilaterally Sensorium / Orientation: alert Psych mental status grossly normal Skin Skin Narrative: Skin tears to the right forearm and knee as documented above MDM MDM MDM Narrative Medical decision making narrative: Patient presented to the ER awake and alert with stable vitals. She denies any blood thinner use. She also reported that this was a mechanical fall and therefore there is no need for cardiac or syncope work-up. CT of the head and cervical spine were obtained based on the patient's trauma which revealed no acute brain bleed skull fracture or cervical spine injury. X-rays of the right elbow/forearm and right knee were also obtained which revealed no acute fracture. The patient has skin tears which unfortunately cannot be closed and therefore they were bandaged after being cleaned. The patient's tetanus status was also updated. The patient was ambulated in the ER and was able to walk without difficulty. I did contact her dialysis center but based on her recent stress from the trauma and the fact that she would be arriving multiple hours late they recommend she be seen tomorrow at 6 AM for repeat dialysis. As patient has obtained dialysis normally on Tuesday I do not feel there is emergent need to have this done today and that it is safe to wait until tomorrow. The plan of care was discussed with the patient and she is agreeable to this. Radiography Diagnostic Testing: Clinical Impression(s) from Imaging Studies Brain CT 10/21/21 06:21 IMPRESSION: undefined Cervical Spine CT 10/21/21 06:21 IMPRESSION: undefined Elbow X-Ray 10/21/21 06:21 IMPRESSION: No acute fracture identified. Electronically Signed: Kan Mcdermott MD at 7:43 EDT , Forearm X-Ray 10/21/21 06:21 IMPRESSION: No acute fracture identified. Electronically Signed: Kan Mcdermott MD at 7:46 EDT , Knee X-Ray 10/21/21 06:21 IMPRESSION: No acute fracture identified. Electronically Signed: Kan Mcdermott MD at 7:50 EDT , X-ray of the right elbow as interpreted by the emergency medicine physician reveals no acute fracture or dislocation X-ray of the right forearm as interpreted by the emergency medicine physician reveals no acute fracture or dislocation X-ray of the right knee as interpreted by the emergency medicine physician reveals no acute fracture or dislocation Discharge Plan Triage Chief Complaint: Fall ED Provider: Melchor Bob Dx/Rx/DC Orders Clinical Impression: Closed head injury, Scalp hematoma, Skin tear, End stage renal disease on dialysis Instructions: ED Head Injury (Adult), ED Skin Avulsion Prescriptions: New oxycodone-acetaminophen [Percocet] 5-325 mg tablet 1 tab PO Q6H PRN (Reason: pain) 3 Days Qty: 12 0RF ondansetron 4 mg tablet,disintegrating 4 mg PO TID PRN PRN (Reason: nausea and vomiting) Qty: 21 0RF No Action aspirin 81 mg tablet,chewable 81 mg PO ONCE atorvastatin 10 MG tablet 10 mg PO DAILY pantoprazole 40 MG tablet 40 mg PO DAILY sevelamer carbonate [Renvela] 800 MG tablet 3,200 mg BC TID Rx Instructions: with meals Nephrocaps Qt 1 EACH tablet,disintegrating 1 ea PO DAILY sulfamethoxazole-trimethoprim 400-80 mg Tablet 1 tab PO DAILY metoprolol tartrate [Lopressor] 50 mg Tablet 50 mg PO BID nitroglycerin 0.4 mg Tablet, Sublingual 0.4 mg SUBLINGUAL Q5M PRN (Reason: Pain) Rx Instructions: do not exceed 3 doses per episode tacrolimus 1 mg Capsule 1 mg PO DAILY prednisolone 5 mg Tablet 5 mg PO DAILY cholecalciferol (vitamin D3) 50 mcg (2,000 unit) Capsule 50 mcg PO DAILY Primary Care Provider: NEY RIVERA Referrals: NEY RIVERA [Other] Activity Restrictions/Additional Instructions: Please go to dialysis at 6 AM tomorrow and return to the ER should you have any further concerns. Please also keep your wounds covered throughout the day but then expose them once daily to wash with soap and water prior to rewrap. Disposition Disposition: Home, Self Care
--- NOTE | 2021-10-21 09:13 | CASEMGMT ---
Pt was set to have dialysis today but fell prior to
--- NOTE | 2021-10-21 09:15 | CASEMGMT ---
Per daniela Wolf, pt was scheduled for dialysis today but fell prior to treatment at [facility] and she states that pt is still able to have dialysis today. Daniela asks for this DESHAUN HARDY to coordinate. Call to Sarah at [facility] and she states that they are able to dialyze pt today, they just need to know when she will be coming. Call to pt's nurse in ED and he states pt will be discharged and her brother is on way to pick her up as her car is still at [facility]. Per nurse, pt is unsure whether she still wants to dialyze today but will discuss with dialysis staff once she gets there. Call back to Sarah at [facility] and she is updated, voices understanding. Homar MEADE CM
[2021-10-21 09:31] VITALS: BP 101/59; PULSE 80; RESP 16; O2SAT 100
== END 2021-10-21 09:25 | disposition home or self-care (01) ==
PROVIDERS: Emergency Provider Emergency Medicine; Visit Provider Emergency Medicine
DX: S00.03XA Contusion of scalp, initial encounter (principal); Z99.2 Dependence on renal dialysis; N18.6 End stage renal disease; S51.811A Laceration without foreign body of right forearm, initial encounter; S81.011A Laceration without foreign body, right knee, initial encounter; M25.461 Effusion, right knee; Z23 Encounter for immunization; W18.09XA Striking against other object with subsequent fall, initial encounter; Y93.01 Activity, walking, marching and hiking; Y92.538 Other ambulatory health services establishments as the place of occurrence of the external cause; Z79.82 Long term (current) use of aspirin; Z79.899 Other long term (current) drug therapy; Z87.891 Personal history of nicotine dependence
CPT/HCPCS: 70450; 72125; 73080; 73090; 73562; 90471; 90715; 99285; A4216

== ENCOUNTER 2022-09-01 18:56 | Inpatient (IN) | payer MEDICARE, SELFPAY ==
[2022-09-01] VITALS (10 sets, daily range): BP systolic 82–111; BP diastolic 24–78; PULSE 79–82; RESP 18–26; TEMP 36.2–36.8; O2SAT 93–100; BMI 26.4; BMI 25.7
--- NOTE | 2022-09-01 19:16 | EKG12_ITS ---
Test Reason : DYSRHYTHMIA Blood Pressure : / mmHG Vent. Rate : 080 BPM Atrial Rate : 077 BPM P-R Int : 204 ms QRS Dur : 204 ms QT Int : 564 ms P-R-T Axes : 000 269 096 degrees QTc Int : 650 ms AV dual-paced rhythm Abnormal ECG Confirmed by MARGARITA BARTLETT, HUMPHREY ([id number]), visual effects editor JAMIE CORDERO ([id number]) on 09/03/2022 8:16:59 AM Referred By: FERNANDO Confirmed By:HUMPHREY AVILA MD
--- NOTE | 2022-09-01 19:17 | EX.ED.DYSGE1 ---
HPI History of Present Illness Chief Complaint: Cough Detail of Chief Complaint: Cough and shortness of breath Informant: patient Narrative Narrative: Patient presents to the emergency department with her family member who brought her in because she has been sick for about a week. Patient's been coughing and feeling short of breath. Patient is a dialysis patient and missed dialysis on Tuesday and is well today. Patient was told to come get evaluated because did not want to dialyze her if she had an infection. Patient's had fever intermittently at home up to 101.8. She denies sick contacts. Patient is also had diarrhea for which she took some Imodium and that has since resolved. Cough is mostly dry at times bringing up some yellow phlegm. Patient has history of coronary artery disease and prior history of mitral valve replacement. She has history of lung transplant. [facility] Medical History (Updated 09/01/22 @ 21:[address] Kyle Johnson, ) Influenza B Kidney disease Pacemaker Home Medications aspirin 81 mg chewable tablet 81 mg PO DAILY 06/10/17 [History Last Taken Unknown] atorvastatin 10 mg tablet 10 mg PO DAILY 06/28/18 [History Last Taken Unknown] Bcomplex-C #13-folic acid 1 mg-vit D3 1,750 unit disintegrating tablet (Nephrocaps Qt) 1 ea PO DAILY 07/07/18 [History Last Taken Unknown] sevelamer carbonate 800 mg tablet (Renvela) 3,200 mg BC TID 07/07/18 [History Last Taken Unknown] cholecalciferol (vitamin D3) 50 mcg (2,000 unit) capsule 50 mcg PO DAILY 10/21/21 [History Last Taken Unknown] metoprolol tartrate 50 mg tablet (Lopressor) 25 mg PO BID 10/21/21 [History Last Taken Unknown] nitroglycerin 0.4 mg sublingual tablet 0.4 mg sublingual Q5M PRN Pain 10/21/21 [History Last Taken Unknown] ondansetron 4 mg disintegrating tablet 4 mg PO TID PRN PRN nausea and vomiting #21 tabs 10/21/21 [Rx Last Taken Unknown] Allergy/AdvReac Type Severity Reaction Status Date / Time diazepam [From Valium] Allergy Unknown Verified 09/01/22 18:59 Gadolinium-MRI Contrast Allergy Unknown Verified 09/01/22 18:59 Medium Iodinated Contrast Media Allergy NEEDS Verified 09/01/22 18:59 FOLLOW-UP vancomycin Allergy Unknown Verified 09/01/22 18:59 Family History Other Heart disease Surgical History Mitral valve replaced Social History Smoking Status: Current every day smoker tobacco type: cigarettes alcohol intake: never ROS ROS ED Review of Systems ROS Unobtainable: other Constitutional Constitutional ED: Reports lethargy; Denies chills, fever(s), sweats or weight loss Eyes Eyes: Denies blurry vision, change in vision or diplopia ENT ENT ED: Denies rhinorrhea or sore throat Cardiovascular Cardiovascular: Denies chest pain, orthopnea or racing heartbeat Respiratory/Chest Respiratory/Chest: Reports cough, dyspnea and dyspnea on exertion; Denies orthopnea or sputum Gastrointestinal Gastrointestinal: Denies abdominal pain, diarrhea, nausea or vomiting Genitourinary Genitourinary ED: Denies dysuria, hematuria or urinary frequency Musculoskeletal Musculoskeletal: Denies arthralgias, back pain, myalgias or neck pain Integumentary Denies abscess, Abrasions or rash Neurologic Neurologic: Denies headache(s) or weakness Psychiatric Psychiatric: Denies anxiety, depression or suicidal thoughts Endocrine Endocrinology: Denies polydipsia, polyphagia or polyuria Hematologic/Lymphatic Hematologic/Lymphatic: Denies easy bleeding, easy bruising or lymphadenopathy Allergic/Immunologic Allergic/Immunologic ED: Denies mouth swelling, tongue swelling or urticaria EXAM Physical Exam Const Vital Signs: 09/01/22 18:57 09/01/22 19:10 09/01/22 19:12 Temperature 98 F Temperature Source Temporal Pulse Rate 79 82 Respiratory Rate 18 26 H Respiratory Effort Labored Respiratory Depth Shallow Respiratory Pattern Irregular Blood Pressure 108/24 L 83/48 L Blood Pressure Mean 52 59 Pulse Ox 100 95 Oxygen Delivery Method Room Air Room Air Room Air 09/01/22 19:58 Temperature Temperature Source Pulse Rate 80 Respiratory Rate 20 H Respiratory Effort Respiratory Depth Respiratory Pattern Blood Pressure 98/74 Blood Pressure Mean 82 Pulse Ox 99 Oxygen Delivery Method Room Air Positive well nourished and well developed General Appearance ED: well developed and NAD HEENT Reports TM's clear and moist mucous membranes normocephalic and atraumatic; Negative for trauma or tenderness Tympanic Membrane ED: Yes TM's clear Eyes PERRL and EOMs intact bilaterally General Eye ED: Negative for pale conjunctiva or scleral icterus Neck no lymphadenopathy, supple and no JVD General: Negative for tenderness Chest Wall inspection of chest normal and palpation of chest normal Chest: Negative for tenderness Resp normal respiratory effort and clear to auscultation bilaterally Effort and Inspection: Negative for respiratory distress or pain with movement Auscultation: Negative for rhonchi, wheezes or diminished lung sounds Cardio regular rate, regular rhythm, S1 normal heart sound, S2 normal heart sound and no murmurs Peripheral Pulses: pulses 2+ throughout GI normal to inspection, nondistended, normoactive bowel sounds, soft to palpation, non-tender, non-distended and no masses Back/Spine no CVA tenderness and no thoracic nor lumbar tenderness Extremity Extremity Narrative: Patient with faint erythema and cellulitic changes to the right lower extremity. Patient has +2 edema both lower extremities. General Extremety ED: Negative for edema General Extremity: Negative for edema Neuro oriented x3, CN's II-XII intact bilaterally, no sensory deficits noted and gait normal Sensorium / Orientation: awake, alert, oriented to person, oriented to place and oriented to time Motor Exam: strength 5/5 throughout and strength abnormal Psych mental status grossly normal Skin no rashes or lesions noted and no wounds MDM MDM MDM Narrative Medical decision making narrative: Patient presents with cough and fever for about a week. She is missed dialysis x2. She denies chest pain. IV line established on arrival. CBC with differential obtained showing a 6.5 with hemoglobin 11 and hematocrit of 32 with platelet count of 108. Chemistries showed a sodium of 129 and potassium of 5.2 with chloride of 88. BUN was 78 and creatinine 14.4. Lactate was 2.0. Troponin elevated 4046. EKG obtained showed a paced rhythm with a rate of 80 bpm. 1 view chest x-ray obtained showed no acute disease process on my interpretation. Radiology in agreement. Case discussed with hospitalist to evaluate patient for admission. I did give Tamiflu 75 mg p.o. I was asked to discuss case with process design chemical engineer on-call Dr. Fernandez. I did discuss case with Dr. Amy Carl and he has that we start patient on Lovenox one-time dose subcu 1 mg/kg. Patient not having any chest pain and no old troponin levels available for comparison. Patient gets a lot of her health care at [facility] but patient would prefer to remain here at [place]. Lab Data Attestation: I reviewed the patient's lab results. Labs: Laboratory Results - last 24 hr 09/01/22 09/01/22 09/01/22 19:15 19:15 19:15 WBC 6.5 RBC 3.05 L Hgb 11.0 L Hct 32.3 L MCV 105.9 H MCH 36.1 H MCHC 34.1 RDW Std Deviation 57.2 H RDW Coeff of Raheel 14.6 Plt Count 108 L MPV 13.3 H Immature Gran % (Auto) 0.500 Neut % (Auto) 77.9 H Lymph % (Auto) 14.7 L Gem % (Auto) 5.2 Eos % (Auto) 1.2 Baso % (Auto) 0.5 Absolute Neuts (auto) 5.1 Absolute Lymphs (auto) 0.95 Nucleated RBC % 0.5 Sodium 129 L Potassium 5.2 H Chloride 88 L Carbon Dioxide 26.0 Anion Gap 15 BUN 78 H Creatinine 14.40 H* Estim Creat Clear Calc 3.84 Est GFR (MDRD) Af Amer 3 L Est GFR (MDRD) Non-Af 3 L BUN/Creatinine Ratio 5.4 L Glucose 92 Lactic Acid 2.0 Calcium 7.8 L Troponin I High Sens 4046 H* Radiography Chest X-Ray - ED: 1 View Diagnostic Testing: Clinical Impression(s) from Imaging Studies Chest X-Ray 09/01/22 19:36 IMPRESSION: Minor scarring or subsegmental atelectasis in the lower lobes. No gross infiltration or pulmonary edema. Electronically Signed: Betito Reinoso MD at 20:06 EDT , 1 view chest x-ray obtained interpreted by myself as no evidence of infiltrate or pneumothorax or acute disease process. Radiology in agreement. EKG Initial EKG: Attestation: I personally reviewed and interpreted this EKG as follows: Comments: AV dual paced rhythm with a rate of 80 bpm Discharge Plan Triage Chief Complaint: Cough ED Provider: Kyle Johnson Dx/Rx/DC Orders Clinical Impression: Influenza, Chronic renal failure, Acute hyperkalemia, Elevated troponin, Generalized weakness Primary Care Provider: Care Physician,No Primary Disposition Disposition: Acute Care Hospital [facility]
[2022-09-01 19:31] LABS: Absolute Lymphocyte Count 0.95 X10^3/uL (0.83-4.51); Absolute Neutrophil Count 5.1 X10^3/uL (2.0-7.7); Basophil# 0.03 X10^3/uL; Basophil% 0.5 % (0-1); Eosinophil# 0.08 X10^3/uL; Eosinophils% 1.2 % (0-5); Hematocrit 32.3 % (37-47); Lymphocyte # 0.95 X10^3/ul (0.83-4.51); Lymphocyte % 14.7 % (19-41); Mean Corp Hgb Conc 34.1 g/dL (32-36); Mean Corpuscular Hgb 36.1 pg (27.0-32.0); Mean Corpuscular Volume 105.9 fL (81-99); Mean Platelet Vol. 13.3 fl (6.2-12.0); Monocyte# 0.34 X10^3/uL; Monocyte% 5.2 % (0-10); NRBC Flagged by Analyzer 0.5 % (0-5); Neutrophil # 5.05 X10^3/uL (2.7-7.7); Neutrophil % 77.9 % (47-70); Platelet Count 108 K/mm3 (150-450); RBC Distribution Width CV 14.6 % (11.6-14.6); RBC Distribution Width SD 57.2 fl (35.1-43.9); Red Blood Count 3.05 M/mm3 (4.2-5.4); White Blood Count 6.5 K/mm3 (4.4-11.0)
--- NOTE | 2022-09-01 19:36 | RAD_ITS ---
STUDY: X-RAY CHEST REASON FOR EXAM: Female, 62 years old. cough, dyspnea TECHNIQUE: AP portable COMPARISON: June 2017 FINDINGS: Minor scarring or subsegmental atelectasis in both lower lobes. There is no demonstrated pleural abnormality. Postop change status post median sternotomy. Normal size heart. Normal mediastinum and zunilda. Normal visualized pulmonary arteries. Mildly calcified aortic arch and descending thoracic aorta. Pacer noted on the left with electrodes in satisfactory position Normal visualized thoracic spine. Normal visualized ribs, clavicles, and shoulders. There are surgical clips projecting over the right upper chest wall. Left subclavian stent is noted There is no demonstrated abnormality of the visualized soft tissue structures of the upper abdomen. RAD/Chest 1 View (Portable) IMPRESSION: Minor scarring or subsegmental atelectasis in the lower lobes. No gross infiltration or pulmonary edema. Electronically Signed: Betito Reinoso MD at 20:06 EDT ,
[2022-09-01 20:00] LABS: Anion Gap 15 (5-15); BUN 78 mg/dL (7-18); BUN/Creat Ratio 5.4 RATIO (10-20); Calcium,Total 7.8 mg/dL (8.5-10.1); Chloride 88 mmol/L (98-107); EST Glomerular Filtration Rate 3 mL/min (>60); Est Glom Filt Rate - Afr Amer 3 mL/min (>60); Estimated Creatinine Clearance 3.84 ml/min; Glucose 92 mg/dL (74-106); Potassium 5.2 mmol/L (3.5-5.1); Sodium Level 129 mmol/L (136-145); Troponin-I HS 4046 pg/mL (3.0-54.0)
[2022-09-01] MEDS: Oseltamivir Phosphate 75 MG Capsule PO (20:07)
--- NOTE | 2022-09-01 20:10 | HP.PCM.HOS_ITS ---
HPI - General General Date of Admission: 09/01/22 Date of Service: 09/01/22 Chief Complaint: malaise HPI Narrative KAYLEE MANTILLA, is a 62 F with a significant history of kidney transplant that did not work; tobacco abuse; mitral valve repair and then replacement with a bovine tissue; and permanent pacemaker who presents to the emergency department with 1 week history of progressively worsening malaise. Associated with her symptoms is cough. Typically her cough is nonproductive. Occasionally her cough is productive. She does not know the color of his sputum. She reports fever and chills. She reports highest home temperature of 101.8 Fahrenheit. 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 At the emergency department patient tested positive for influenza B. However patient reportedly received vaccination for influenza. On presentation to the emergency department patient troponin was severely elevated. However patient denies chest pain. Of note patient's schedule for dialysis is Mondays, Wednesdays and Fridays. However prior to presentation patient missed 2 sessions of dialysis because of her sickness. Dialysis instructed patient to come to the emergency department for further evaluation and treatment. [facility] Medical History Influenza B Kidney disease Pacemaker Home Medications aspirin 81 mg chewable tablet 81 mg PO DAILY 06/10/17 [History Last Taken Unknown] atorvastatin 10 mg tablet 10 mg PO DAILY 06/28/18 [History Last Taken Unknown] Bcomplex-C #13-folic acid 1 mg-vit D3 1,750 unit disintegrating tablet (Nephrocaps Qt) 1 ea PO DAILY 07/07/18 [History Last Taken Unknown] sevelamer carbonate 800 mg tablet (Renvela) 3,200 mg BC TID 07/07/18 [History Last Taken Unknown] cholecalciferol (vitamin D3) 50 mcg (2,000 unit) capsule 50 mcg PO DAILY 10/21/21 [History Last Taken Unknown] metoprolol tartrate 50 mg tablet (Lopressor) 25 mg PO BID 10/21/21 [History Last Taken Unknown] nitroglycerin 0.4 mg sublingual tablet 0.4 mg sublingual Q5M PRN Pain 10/21/21 [History Last Taken Unknown] ondansetron 4 mg disintegrating tablet 4 mg PO TID PRN PRN nausea and vomiting #21 tabs 10/21/21 [Rx Last Taken Unknown] Allergy/AdvReac Type Severity Reaction Status Date / Time diazepam [From Valium] Allergy Unknown Verified 09/01/22 18:59 Gadolinium-MRI Contrast Allergy Unknown Verified 09/01/22 18:59 Medium Iodinated Contrast Media Allergy NEEDS Verified 09/01/22 18:59 FOLLOW-UP vancomycin Allergy Unknown Verified 09/01/22 18:59 Family History Other Heart disease Surgical History Mitral valve replaced Social History Smoking Status: Current every day smoker tobacco type: cigarettes alcohol intake: never ROS ROS Narrative Pertinent positives and pertinent negatives as noted in HPI. All other systems were reviewed and are negative Vital Signs Vital Signs Vital Signs: 09/01/22 18:57 09/01/22 19:10 09/01/22 19:12 Temperature 98 F Temperature Source Temporal Pulse Rate 79 82 Respiratory Rate 18 26 H Respiratory Effort Labored Respiratory Depth Shallow Respiratory Pattern Irregular Blood Pressure 108/24 L 83/48 L Blood Pressure Mean 52 59 Pulse Ox 100 95 Oxygen Delivery Method Room Air Room Air Room Air 09/01/22 19:58 Temperature Temperature Source Pulse Rate 80 Respiratory Rate 20 H Respiratory Effort Respiratory Depth Respiratory Pattern Blood Pressure 98/74 Blood Pressure Mean 82 Pulse Ox 99 Oxygen Delivery Method Room Air Weight Weight: 74.3 kg Body Mass Index (BMI) 26.4 Physical Exam Narrative Physical exam: General: Patient looks sick. Head: Normocephalic, atraumatic, no tenderness Eyes: Vision is grossly intact. EOMI ENT, no trauma, moist mucous membranes, no rhinorrhea Neck: Nontender, No thyromegaly. CVS: Regular rate and rhythm. S1-S2 present. No murmur, gallop or rub. Respiratory : Coarse and diminished lung sounds. Abdomen: Soft, nontender, nondistended, normal bowel sounds, no masses : Deferred Back: Nontender, no CVA tenderness, no midline spinal tenderness, deformities, step-offs Extremities: Kyphosis at the back. Bilateral lower extremity edema of 2-3+ and erythema with right worse than left. Skin: Normal color, no trauma, abrasions Neuro: Alert, oriented, cranial nerves II through XII grossly intact. Psychiatry: Normal mood. Normal affect. Not depressed. Not anxious. Results Lab / Micro Data Result Diagrams: 09/01/22 19:15 09/01/22 19:15 Labs: Laboratory Results - last 24 hr 09/01/22 19:15: WBC 6.5, RBC 3.05 L, Hgb 11.0 L, Hct 32.3 L, MCV 105.9 H, MCH 36.1 H, MCHC 34.1, RDW Std Deviation 57.2 H, RDW Coeff of Raheel 14.6, Plt Count 108 L, MPV 13.3 H, Immature Gran % (Auto) 0.500, Neut % (Auto) 77.9 H, Lymph % (Auto) 14.7 L, [place] % (Auto) 5.2, Eos % (Auto) 1.2, Baso % (Auto) 0.5, Absolute Neuts (auto) 5.1, Absolute Lymphs (auto) 0.95, Nucleated RBC % 0.5 09/01/22 19:15: Sodium 129 L, Potassium 5.2 H, Chloride 88 L, Carbon Dioxide 26.0, Anion Gap 15, BUN 78 H, Creatinine 14.40 H*, Estim Creat Clear Calc 3.84, Est GFR (MDRD) Af Amer 3 L, Est GFR (MDRD) Non-Af 3 L, BUN/Creatinine Ratio 5.4 L, Glucose 92, Calcium 7.8 L, Troponin I High Sens 4046 H* Micro: Microbiology 09/01/22 19:23 Nasal Secretion SARS-CoV-2 & FLU Antigen (Rapid) - Final Influenzae B Radiology Impression Chest X-Ray 09/01/22 19:36 IMPRESSION: Minor scarring or subsegmental atelectasis in the lower lobes. No gross infiltration or pulmonary edema. Electronically Signed: Betito Reinoso MD at 20:06 EDT , Assessment & Plan Assessment/Plan (1) Influenza B: (2) Elevated troponin: PLAN: Plan Influenza B infection SARS-CoV-2 and flu antigen returned positive for influenza B. Radiologist impression of chest x-ray:Minor scarring or subsegmental atelectasis in the lower lobes. No gross infiltration or pulmonary edema. Hospitalist independent interpretation: Agrees with radiologist interpretation. Given Tamiflu 75 mg p.o. x1 at the emergency department. Will adjust Tamiflu for creatinine clearance and dose of 30 mg after each dialysis session for a total of 5 doses. Blood culture x2 was obtained in the emergency department, follow. Medicine as ordered. Trend CBC and BMP. Elevated troponin Patient denies chest pain. Unclear etiology. Initial high sensitive troponin was 4046. Troponin is paced rhythm. Patient getting his cardiology care from outside hospital. Order to obtain records. Could be from demand ischemia secondary to influenza B infection, poor clearance from dialysis or NSTEMI. Emergency department doctor discussed the case with cardiology. Recommendation to give one-time dose of Lovenox that was given at the ED. Cardiology will fo llow. Baby is on daily aspirin. One-time dose of aspirin 81 mg x 1 given in the ED. Daily aspirin continued. Trend troponin. Hypotension With patient being on dialysis hold off IV fluids at this time. Midodrine ordered. Hold home metoprolol. Trend blood pressures. End-stage disease on dialysis Review of labs shows hyponatremia with sodium of 129, potassium of 5.2. Creatinine on presentation was 14.40. Last creatinine on file was in 2019. Her creatinine at that time was 3.17. Calcium of 7.8. Trend BMP. Check phosphorus. Check magnesium. Cardiac and renal diet ordered. Sevelamer continued. Nephrocaps continued. Nephrology consult. DVT prophylaxis: Not indicated as patient received therapeutic dose of Lovenox at the emergency department. Charges/Coding Visit Charges Inpatient E&M: 51976 Init Hosp L3
--- NOTE | 2022-09-01 20:11 | ED.RN ---
pt reports last had dialysis on tuesday
[2022-09-01] MEDS: Enoxaparin 80 MG/0.8 ML Syringe SC (20:29)
[2022-09-01] MEDS: Aspirin 81 MG TAB.CHEW PO (20:54)
--- NOTE | 2022-09-01 21:43 | EKG12_ITS ---
Test Reason : admit to floor Blood Pressure : / mmHG Vent. Rate : 080 BPM Atrial Rate : 080 BPM P-R Int : 194 ms QRS Dur : 206 ms QT Int : 552 ms P-R-T Axes : 000 269 087 degrees QTc Int : 636 ms AV dual-paced rhythm Abnormal ECG When compared with ECG of 03-DEC-2009 20:50, Electronic ventricular pacemaker has replaced Atrial fibrillation Confirmed by MARGARITA BARTLETT, HUMPHREY ([id number]), tube dispatcher JAMIE CORDERO ([id number]) on 09/03/2022 8:19:49 AM Referred By: Confirmed By:HUMPHREY AVILA MD
--- NOTE | 2022-09-01 21:50 | ED.RN ---
pt was 2L NC during ED stay.
[2022-09-01] MEDS: guaiFENesin 1,200 MG Tablet 1200 MG PO (22:24)
--- NOTE | 2022-09-01 23:09 | NURSING ---
pt refusing midodrine at this time stating it gives me a pounding headache. Offered tylenol to help with headache and pt still refusing. Attempted to educate pt of her low BP, pt stating I dont care I wont take it MD aware.
[2022-09-01 23:26] LABS: Reflex Lactate? Y
[2022-09-01 23:55] LABS: Lactic Acid 1.8 mmol/L (0.4-1.9)
[2022-09-02] VITALS (7 sets, daily range): BP systolic 108–131; BP diastolic 59–109; PULSE 79–80; RESP 18–21; TEMP 36.1–37.2; O2SAT 96–100
[2022-09-02] LABS: Troponin-I HS 3402 pg/mL (3.0-54.0)
[2022-09-02 01:32] LABS: Troponin-I HS 3217 pg/mL (3.0-54.0)
[2022-09-02 05:14] LABS: Absolute Lymphocyte Count 1.34 X10^3/uL (0.83-4.51); Absolute Neutrophil Count 4.3 X10^3/uL (2.0-7.7); Basophil# 0.02 X10^3/uL; Basophil% 0.3 % (0-1); Eosinophil# 0.18 X10^3/uL; Eosinophils% 2.9 % (0-5); Hematocrit 32.1 % (37-47); Hemoglobin 10.6 g/dL (12.0-15.0); Lymphocyte # 1.34 X10^3/ul (0.83-4.51); Lymphocyte % 21.5 % (19-41); Mean Corpuscular Hgb 35.8 pg (27.0-32.0); Mean Corpuscular Volume 108.4 fL (81-99); Mean Platelet Vol. 13.4 fl (6.2-12.0); Monocyte# 0.37 X10^3/uL; Monocyte% 5.9 % (0-10); NRBC Flagged by Analyzer 0.5 % (0-5); Neutrophil % 69.1 % (47-70); Platelet Count 112 K/mm3 (150-450); RBC Distribution Width CV 14.6 % (11.6-14.6); RBC Distribution Width SD 57.6 fl (35.1-43.9); Red Blood Count 2.96 M/mm3 (4.2-5.4); White Blood Count 6.2 K/mm3 (4.4-11.0)
[2022-09-02 05:47] LABS: Anion Gap 14 (5-15); BUN 83 mg/dL (7-18); BUN/Creat Ratio 5.6 RATIO (10-20); Calcium,Total 7.1 mg/dL (8.5-10.1); Chloride 89 mmol/L (98-107); Cholesterol 84 mg/dL (200); EST Glomerular Filtration Rate 3 mL/min (>60); Est Glom Filt Rate - Afr Amer 3 mL/min (>60); Estimated Creatinine Clearance 3.74 ml/min; Glucose 94 mg/dL (74-106); High Density Lipoprotein 28 mg/dL; Magnesium 2.4 mg/dL (1.6-2.6); Phosphorus 7.8 mg/dL (2.5-4.9); Potassium 5.6 mmol/L (3.5-5.1); Sodium Level 127 mmol/L (136-145); Triglycerides 151 mg/dL; Very Low Density Lipoprotein 30 mg/dL (5-40)
[2022-09-02 05:48] LABS: Troponin-I HS 2852 pg/mL (3.0-54.0)
[2022-09-02] MEDS: SEVELAMER CARBONATE 800 MG TABLET 3200 MG PO (08:04)
[2022-09-02] MEDS: Aspirin 81 MG TAB.CHEW PO (08:04)
[2022-09-02] MEDS: Cholecalciferol (VIT D3) 25 MCG TABLET (1,000 UNITS) 50 MCG PO (08:04)
[2022-09-02] MEDS: guaiFENesin 1,200 MG Tablet 1200 MG PO (08:04)
[2022-09-02] MEDS: Folic Acid/Vitamin B Comp W-C 1 Capsule 1 CAP PO (08:04)
--- NOTE | 2022-09-02 08:12 | PCM.CONS.C ---
Assessment & Plan Assessment/Plan (1) Elevated troponin: PLAN: Patient has an elevated troponin with no symptoms. She has developed significant influenza symptoms. My recommendation at this time will be to obtain an echocardiogram and depending on the findings further recommendations will be made. The flat pattern makes me inclined to follow her medically. (2) H/O mitral valve replacement: PLAN: She does have a history of mitral valve replacement. We will reevaluate this with the echocardiogram. (3) Pacemaker: PLAN: She is status post permanent pacemaker implantation. It appears that her pacemaker is functioning well. My recommendation will be to continue the current medical therapy and for her to follow-up with her small products ii assembler in the [place] area. Thank you for allowing me to participate in the care of your patient. Please don't hesitate to call if any issues arise. HPI Consult Data Date of Consult: 09/02/22 HPI Narrative HPI Narrative: KAYLEE MANTILLA, is a 62 F who presents with general days to the emergency room. She has a history of mitral valve repair and replacement with a bovine valve and a dual-chamber pacemaker. She also has a history of previous kidney transplant which was rejected. She receives all her care in [place]. She presented to the emergency room and due to her malaise a troponin was checked which was noted to be elevated. She denied any chest pain or shortness of breath or paroxysmal nocturnal dyspnea. She is on dialysis treatments. Her EKG did not demonstrate any significant abnormality. Cardiology was called for further evaluation and management due to the elevated troponin. She was also noted to be positive for influenza B. [facility] Medical History (Updated 09/02/22 @ 08:[address] Jesus Fernandez MD) Influenza B Kidney disease Pacemaker Home Medications aspirin 81 mg chewable tablet 81 mg PO DAILY 06/10/17 [History Last Taken Unknown] atorvastatin 10 mg tablet 10 mg PO DAILY 06/28/18 [History Last Taken Unknown] Bcomplex-C #13-folic acid 1 mg-vit D3 1,750 unit disintegrating tablet (Nephrocaps Qt) 1 ea PO DAILY 07/07/18 [History Last Taken Unknown] sevelamer carbonate 800 mg tablet (Renvela) 3,200 mg BC TID 07/07/18 [History Last Taken Unknown] cholecalciferol (vitamin D3) 50 mcg (2,000 unit) capsule 50 mcg PO DAILY 10/21/21 [History Last Taken Unknown] metoprolol tartrate 50 mg tablet (Lopressor) 25 mg PO BID 10/21/21 [History Last Taken Unknown] nitroglycerin 0.4 mg sublingual tablet 0.4 mg sublingual Q5M PRN Pain 10/21/21 [History Last Taken Unknown] ondansetron 4 mg disintegrating tablet 4 mg PO TID PRN PRN nausea and vomiting #21 tabs 10/21/21 [Rx Last Taken Unknown] Allergy/AdvReac Type Severity Reaction Status Date / Time diazepam [From Valium] Allergy Unknown Verified 09/01/22 18:59 Gadolinium-MRI Contrast Allergy Unknown Verified 09/01/22 18:59 Medium Iodinated Contrast Media Allergy NEEDS Verified 09/01/22 18:59 FOLLOW-UP vancomycin Allergy Unknown Verified 09/01/22 18:59 Family History Other Heart disease Surgical History Mitral valve replaced Social History Smoking Status: Current every day smoker tobacco type: cigarettes alcohol intake: never ROS Constitutional Constitutional: Denies fever(s) or weight loss Eyes Eyes: Reports systems reviewed and no addt'l complaints, except as documented ENT HEENT: Reports systems reviewed and no addt'l complaints, except as documented Cardiovascular Cardiovascular: Denies chest pain at rest, chest pain with activity, dyspnea at rest, dyspnea on exertion, edema, palpitations or paroxysmal nocturnal dyspnea Respiratory/Chest Respiratory/Chest: Denies dyspnea on exertion, productive cough, shortness of breath at rest or shortness of breath with exertion Gastrointestinal Gastrointestinal: Denies change in bowel habits, nausea, vomiting or weight changes Genitourinary Genitourinary: Denies difficulty urinating Musculoskeletal Musculoskeletal: Denies joint stiffness or muscle weakness Integumentary Integumentary: Denies lesions Neurologic Neurologic: Denies dizziness or syncope Psychiatric Psychiatric: Denies anxiety Endocrine Endocrinology: Denies excessive sweating or fatigue Hematologic/Lymphatic Hematologic/Lymphatic: Denies anemia Allergic/Immunologic Allergic/Immunologic: Denies seasonal rhinorrhea Physical Exam Const alert, oriented x3 and no apparent distress General Appearance: cooperative HEENT hearing grossly normal bilaterally Head and Scalp: atraumatic Eyes EOMs intact bilaterally Neck General: normal visual inspection Chest inspection of chest normal and palpation of chest normal Resp normal respiratory effort Auscultation: clear to auscultation bilaterally Cardio regular rate, regular rhythm, S1 normal heart sound and S2 normal heart sound Jugular Venous Distention: JVD GI normal to inspection, nondistended, normoactive bowel sounds Extremity normal capillary refill and no pedal edema Peripheral Pulses: Yes pulses 2+ throughout and femoral pulses present Skin no rashes or lesions noted Neuro oriented x3 and CN's II-XII intact bilaterally Psych Appearance: grossly normal and appropriate Risk Stratification Risk Stratification Applicable: Yes Age >/= 65: No >/= 3 CAD Risk Factors (HTN, HLD, DM, family hx of CAD, or current smoker): No Aspirin Use in the Past 7 Days: No Severe Angina (>/= episodes in 24 hours): No EKG ST Changes >/= 0.5mm: No Positive Cardiac Marker: Yes OLEKSANDR Risk Stratification Score: 1 OLEKSANDR % Risk: 5% Risk Objective Data Vital Signs: Vital Signs Temp Pulse Resp BP Pulse Ox O2 Del Method O2 Flow Rate 98.2 F 80 21 H 126/74 H 96 Nasal Cannula 2 09/02/22 03:31 09/02/22 03:31 09/02/22 03:31 09/02/22 03:31 09/02/22 07:04 09/02/22 07:04 09/02/22 07:04 Oxygen Flow Rate (L/min) 2 Oxygen Delivery Method Nasal Cannula Weight: 159 lb 6.307 oz Body Mass Index (BMI) 25.7 Lab / Micro Data Result Diagrams: 09/02/22 05:00 09/02/22 05:00 Labs: Laboratory Results - last 24 hr 09/01/22 19:15: WBC 6.5, RBC 3.05 L, Hgb 11.0 L, Hct 32.3 L, MCV 105.9 H, MCH 36.1 H, MCHC 34.1, RDW Std Deviation 57.2 H, RDW Coeff of Raheel 14.6, Plt Count 108 L, MPV 13.3 H, Immature Gran % (Auto) 0.500, Neut % (Auto) 77.9 H, Lymph % (Auto) 14.7 L, [place] % (Auto) 5.2, Eos % (Auto) 1.2, Baso % (Auto) 0.5, Absolute Neuts (auto) 5.1, Absolute Lymphs (auto) 0.95, Nucleated RBC % 0.5 09/01/22 19:15: Sodium 129 L, Potassium 5.2 H, Chloride 88 L, Carbon Dioxide 26.0, Anion Gap 15, BUN 78 H, Creatinine 14.40 H*, Estim Creat Clear Calc 3.84, Est GFR (MDRD) Af Amer 3 L, Est GFR (MDRD) Non-Af 3 L, BUN/Creatinine Ratio 5.4 L, Glucose 92, Calcium 7.8 L, Troponin I High Sens 4046 H* 09/01/22 19:15: Lactic Acid 2.0 09/01/22 23:05: Troponin I High Sens 3402 H* 09/01/22 23:05: Lactic Acid 1.8 09/02/22 00:53: Troponin I High Sens 3217 H* 09/02/22 05:00: WBC 6.2, RBC 2.96 L, Hgb 10.6 L, Hct 32.1 L, MCV 108.4 H, MCH 35.8 H, MCHC 33.0, RDW Std Deviation 57.6 H, RDW Coeff of Raheel 14.6, Plt Count 112 L, MPV 13.4 H, Immature Gran % (Auto) 0.300, Neut % (Auto) 69.1, Lymph % (Auto) 21.5, [place] % (Auto) 5.9, Eos % (Auto) 2.9, Baso % (Auto) 0.3, Absolute Neuts (auto) 4.3, Absolute Lymphs (auto) 1.34, Nucleated RBC % 0.5 09/02/22 05:00: Sodium 127 L, Potassium 5.6 H, Chloride 89 L, Carbon Dioxide 24.0, Anion Gap 14, BUN 83 H, Creatinine 14.80 H*, Estim Creat Clear Calc 3.74, Est GFR (MDRD) Af Amer 3 L, Est GFR (MDRD) Non-Af 3 L, BUN/Creatinine Ratio 5.6 L, Glucose 94, Calcium 7.1 L, Phosphorus 7.8 H, Magnesium 2.4, Triglycerides 151, Cholesterol 84, LDL Cholesterol 26, VLDL Cholesterol 30, HDL Cholesterol 28 L 09/02/22 05:00: Troponin I High Sens 2852 H* Micro: Microbiology 09/01/22 19:23 Nasal Secretion SARS-CoV-2 & FLU Antigen (Rapid) - Final Influenzae B Cardiology Labs/Tests 09/01/22 19:15: WBC 6.5, RBC 3.05 L, Hgb 11.0 L, Hct 32.3 L, MCV 105.9 H, MCH 36.1 H, MCHC 34.1, Plt Count 108 L, MPV 13.3 H, Immature Gran % (Auto) 0.500, Neut % (Auto) 77.9 H, Lymph % (Auto) 14.7 L, [place] % (Auto) 5.2, Eos % (Auto) 1.2, Baso % (Auto) 0.5, Absolute Neuts (auto) 5.1, Nucleated RBC % 0.5 09/01/22 19:15: Sodium 129 L, Potassium 5.2 H, Chloride 88 L, Carbon Dioxide 26.0, Anion Gap 15, BUN 78 H, Creatinine 14.40 H*, Est GFR (MDRD) Af Amer 3 L, Est GFR (MDRD) Non-Af 3 L, BUN/Creatinine Ratio 5.4 L, Glucose 92, Calcium 7.8 L 09/01/22 19:15: Lactic Acid 2.0 09/01/22 23:05: Lactic Acid 1.8 09/02/22 05:00: WBC 6.2, RBC 2.96 L, Hgb 10.6 L, Hct 32.1 L, MCV 108.4 H, MCH 35.8 H, MCHC 33.0, Plt Count 112 L, MPV 13.4 H, Immature Gran % (Auto) 0.300, Neut % (Auto) 69.1, Lymph % (Auto) 21.5, [place] % (Auto) 5.9, Eos % (Auto) 2.9, Baso % (Auto) 0.3, Absolute Neuts (auto) 4.3, Nucleated RBC % 0.5 09/02/22 05:00: Sodium 127 L, Potassium 5.6 H, Chloride 89 L, Carbon Dioxide 24.0, Anion Gap 14, BUN 83 H, Creatinine 14.80 H*, Est GFR (MDRD) Af Amer 3 L, Est GFR (MDRD) Non-Af 3 L, BUN/Creatinine Ratio 5.6 L, Glucose 94, Calcium 7.1 L, Phosphorus 7.8 H, Magnesium 2.4, Triglycerides 151, Cholesterol 84, LDL Cholesterol 26, VLDL Cholesterol 30, HDL Cholesterol 28 L Rhythm: EKG: ECHO: Stress Test: Cardiac Cath: PCI: CT Surgery: Holter monitor: EPS: PPM: CXR: Chest CT Scan: Radiography Diagnostic Testing: Radiology Impression Chest X-Ray 09/01/22 19:36 IMPRESSION: Minor scarring or subsegmental atelectasis in the lower lobes. No gross infiltration or pulmonary edema. Electronically Signed: Betito Reinoso MD at 20:06 EDT ,
--- NOTE | 2022-09-02 08:20 | ECHOD_ITS ---
Reason For Study: Valve Eval Procedure This was a 2D Doppler, Color Flow transthoracic echocardiogram. No Definity used due to single working kidney. Exam performed portable in patient room. Left Ventricle Normal LV size. Left ventricular systolic function is normal. The estimated ejection fraction is 53 %. Post operative septal motion. Right Ventricle Normal RV size. ICD or pacer leads identified within the right ventricle. Mild global right ventricular systolic dysfunction. Atria Normal left atrium. Mitral Valve Bioprosthetic mitral valve. Tricuspid Valve Normal tricuspid valve. Mild to moderate (1-2+) tricuspid valve insufficiency. Pulmonary artery systolic pressure is 36 mmHg. Aortic Valve Trisinus/trileaflet aortic valve. Pulmonic Valve Normal pulmonic valve. Great Vessels Normal aortic root. Pericardium/Pleural No pericardial effusion. MMode/2D Measurements & Calculations LVIDd: 3.8 cm IVSd: 0.94 cm Ao root diam: 3.3 cm LVIDs: 3.3 cm LVPWd: 1.1 cm LA dimension: 4.2 cm RVDd: 5.0 cm FS: 12.4 % Time Measurements MV dec time: 0.27 sec Doppler Measurements & Calculations MV E max jefe: 172.1 cm/sec MV V2 max: 183.3 cm/sec MV P1/2t max jefe: 180.1 cm/sec MV A max jefe: 49.2 cm/sec MV max P.5 mmHg MV P1/2t: 68.8 msec MV E/A: 3.5 MV V2 mean: 90.2 cm/sec MV mean P.2 mmHg MV dec slope: 766.7 cm/sec2 MV V2 VTI: 38.4 cm MVA(P1/2t): 3.2 cm2 Ao V2 max: 119.7 cm/sec LV V1 max: 74.6 cm/sec PA V2 max: 73.9 cm/sec Ao max P.7 mmHg LV V1 max P.2 mmHg TR max jefe: 284.5 cm/sec TR max P.4 mmHg ECHO/Echo Complete Interpretation Summary Normal LV size. Left ventricular systolic function is normal. The estimated ejection fraction is 53 %. Pulmonary artery systolic pressure is 36 mmHg. Ordering Physician: Jesus Fernandez Performed By: Ko Polo RCS
--- NOTE | 2022-09-02 09:34 | NURSING ---
pt with multiple loose stools since breakfast. reporting that has had ever since sick last week dr. fuentes texted for immodium order per pt request waiting on orders
--- NOTE | 2022-09-02 09:54 | PCM.PN.HOSP ---
Subjective Subjective Feels better than when she came in, denies any chest pain. Objective Data Objective Data Vital Signs: Vital Signs Temp Pulse Resp BP Pulse Ox O2 Del Method O2 Flow Rate 98.2 F 80 21 H 126/74 H 96 Nasal Cannula 2 09/02/22 03:31 09/02/22 03:31 09/02/22 03:31 09/02/22 03:31 09/02/22 07:04 09/02/22 08:00 09/02/22 08:00 Oxygen Flow Rate (L/min) 2 Oxygen Delivery Method Nasal Cannula Weight: 159 lb 6.307 oz Body Mass Index (BMI) 25.7 Lab / Micro Data Result Diagrams: 09/02/22 05:00 09/02/22 05:00 Labs: Laboratory Results - last 24 hr 09/01/22 19:15: WBC 6.5, RBC 3.05 L, Hgb 11.0 L, Hct 32.3 L, MCV 105.9 H, MCH 36.1 H, MCHC 34.1, RDW Std Deviation 57.2 H, RDW Coeff of Raheel 14.6, Plt Count 108 L, MPV 13.3 H, Immature Gran % (Auto) 0.500, Neut % (Auto) 77.9 H, Lymph % (Auto) 14.7 L, [place] % (Auto) 5.2, Eos % (Auto) 1.2, Baso % (Auto) 0.5, Absolute Neuts (auto) 5.1, Absolute Lymphs (auto) 0.95, Nucleated RBC % 0.5 09/01/22 19:15: Sodium 129 L, Potassium 5.2 H, Chloride 88 L, Carbon Dioxide 26.0, Anion Gap 15, BUN 78 H, Creatinine 14.40 H*, Estim Creat Clear Calc 3.84, Est GFR (MDRD) Af Amer 3 L, Est GFR (MDRD) Non-Af 3 L, BUN/Creatinine Ratio 5.4 L, Glucose 92, Calcium 7.8 L, Troponin I High Sens 4046 H* 09/01/22 19:15: Lactic Acid 2.0 09/01/22 23:05: Troponin I High Sens 3402 H* 09/01/22 23:05: Lactic Acid 1.8 09/02/22 00:53: Troponin I High Sens 3217 H* 09/02/22 05:00: WBC 6.2, RBC 2.96 L, Hgb 10.6 L, Hct 32.1 L, MCV 108.4 H, MCH 35.8 H, MCHC 33.0, RDW Std Deviation 57.6 H, RDW Coeff of Raheel 14.6, Plt Count 112 L, MPV 13.4 H, Immature Gran % (Auto) 0.300, Neut % (Auto) 69.1, Lymph % (Auto) 21.5, [place] % (Auto) 5.9, Eos % (Auto) 2.9, Baso % (Auto) 0.3, Absolute Neuts (auto) 4.3, Absolute Lymphs (auto) 1.34, Nucleated RBC % 0.5 09/02/22 05:00: Sodium 127 L, Potassium 5.6 H, Chloride 89 L, Carbon Dioxide 24.0, Anion Gap 14, BUN 83 H, Creatinine 14.80 H*, Estim Creat Clear Calc 3.74, Est GFR (MDRD) Af Amer 3 L, Est GFR (MDRD) Non-Af 3 L, BUN/Creatinine Ratio 5.6 L, Glucose 94, Calcium 7.1 L, Phosphorus 7.8 H, Magnesium 2.4, Triglycerides 151, Cholesterol 84, LDL Cholesterol 26, VLDL Cholesterol 30, HDL Cholesterol 28 L 09/02/22 05:00: Troponin I High Sens 2852 H* Micro: Microbiology 09/01/22 19:23 Nasal Secretion SARS-CoV-2 & FLU Antigen (Rapid) - Final Influenzae B Radiography Diagnostic Testing: Radiology Impression Chest X-Ray 09/01/22 19:36 IMPRESSION: Minor scarring or subsegmental atelectasis in the lower lobes. No gross infiltration or pulmonary edema. Electronically Signed: Betito Reinoso MD at 20:06 EDT , Physical Exam Narrative General: Alert, Oriented x3, Cooperative, mild respiratory distress HEENT: Atraumatic, PERRLA, EOMI, Normocephalic Oral: Moist Mucosa Neck: Supple, No JVD Lungs: Diminished, Normal air movement, No rhonchi, No wheeze, No rales, coarse and tachypneic Cardiovascular: Regular rate, Regular Rhythm, Normal S1, Normal S2, No murmurs Abdomen: Soft, Non Tender, Non-Distended, No Hepato-splenomegaly Extremities: No edema, Capillary Refill Less than 3 Seconds Skin: No rashes, No breakdown Musculoskeletal: No Tenderness to Palpation of Joints or Extremities Neurological: Motor Exam 5/5 strength throughout, Sensory exam intact to light touch and pain Psych/Mental Status: Flat affect Assessment & Plan Assessment/Plan (1) Influenza B: (2) Elevated troponin: PLAN: Plan 1. Acute hypoxic insufficiency secondary to influenza B/a type II non-STEMI from hypoxia and demand ischemia ? She did test positive for influenza B, COVID is negative ? We will continue with Tamiflu with renal dosing ? Case discussed with cardiology they feel that her troponin elevation is due to demand ischemia from her hypoxia as well as her renal failure causing elevation of her troponin will continue with medical management, appreciate their assistance ? Blood cultures are pending ?She denies any chest pain, echo is pending 2. CAD status post CABG/mitral valve replacement/HTN/HLD ? Appreciate cardiology assistance ? Continue with Lipitor ? We will hold off for right now given low blood pressures ? Continue with aspirin 3. End-stage renal disease status post failed renal transplant ? She is supposed be on dialysis every MWF however she missed her last 2 dialysis treatments because of feeling sick ? Her creatinine is over 14 and her phosphorus is over 7 ? We will consult nephrology for dialysis today ? We will continue with her home renal medications DVT: Heparin Charges/Coding Visit Charges Inpatient E&M: 19091 Subs Hosp L2
[2022-09-02] MEDS: Loperamide 2 MG Capsule PO (13:17)
--- NOTE | 2022-09-02 13:40 | CASEMGMT ---
RN CM Face to Face with patient for initial transition planning/care coordination assessment. RN CM introduced self and role at [facility]. Patient lying in bed, alert and oriented. Patient willing to participate in assessment and is able to answer all questions appropriately. Care providers, pharmacy, and demographics verified. Patient wishes to discharge home, denies need for home health at this time. Patient states she has no further needs or concerns at this time. CM to follow for discharge planning needs that may arise. PCP: Hernan from [facility] Specialists: Samia, Car Lot Attendant [facility] Preferred Pharmacy: [facility] Insurance: [facility] Prescription Benefit: yes Living Will/HPOA: none LNOK: daughter Living Arrangements: Patient lives with daughter in a mobile home with 3 steps and railing to enter the home. Patient states she is independent at home. Transportation: self, daughter. DME/HHC: Patient denies DME in the home. No previous HHC or SNF Disposition Plan: Patient to discharge home with family support and follow-up plans in place. Tammy CHAMBERSN, RN, CM
--- NOTE | 2022-09-02 13:55 | CON.PCM.RE_ITS ---
Assessment & Plan Assessment/Plan (1) Influenza B: (2) ESRD (end stage renal disease): (3) Elevated troponin: (4) Hyperkalemia: PLAN: Plan This is a 62-year-old female with past medical history significant for mitral valve repair/replacement, permanent pacemaker implantation, ESRD on hemodialysis Tuesday who presented to emergency room with complaints of feeling unwell, tested positive for influenza B also noted to have elevated troponin. Nephrology consulted for dialysis management. Patient last dialyzed at her kidney center last Tuesday. Patient is typically compliant with dialysis. We will plan for dialysis today on 2K bath (potassium 5.6) and attempt fluid removal as patient/blood pressure tolerates. Reviewed chest x-ray which did not show much fluid. Plan for dialysis likely again tomorrow to regularize dialysis schedule. Patient has history of anemia of chronic disease, hemoglobin is 10.6. We will monitor hemoglobin trends. Influenza B. On Tamiflu. Blood cultures drawn and pending. Cardiology consulted and following. Echo: Normal LV size, left ventricular systolic function normal, EF 53%. Thank you for allowing us participate in the care of Ms. Mantilla, further orders forthcoming as hospitalization evolves. HPI Consult Data Date of Consult: 09/02/22 HPI Narrative HPI Narrative: KAYLEE MANTILLA, is a 62 F with past medical history significant for ESRD on hemodialysis Tuesday at [facility] who presented to emergency room with complaints of cough and malaise. Patient tested positive for influenza B. She was also noted to have elevated troponin therefore admitted for further evaluation and treatment. Patient last dialyzed at the kidney center last Tuesday. Nephrology consulted for dialysis management. Patient reports that she had been having diarrhea. Denies any fevers. Complains of feeling tired. Denies any vomiting. States appetite is poor. [facility] Medical History (Updated 09/02/22 @ 13:58 by MARY JO Garcia) Influenza B Kidney disease Pacemaker Home Medications aspirin 81 mg chewable tablet 81 mg PO DAILY 06/10/17 [History Last Taken Unkno wn] atorvastatin 10 mg tablet 10 mg PO DAILY 06/28/18 [History Last Taken Unknown] Bcomplex-C #13-folic acid 1 mg-vit D3 1,750 unit disintegrating tablet (Nephrocaps Qt) 1 ea PO DAILY 07/07/18 [History Last Taken Unknown] sevelamer carbonate 800 mg tablet (Renvela) 3,200 mg BC TID 07/07/18 [History Last Taken Unknown] cholecalciferol (vitamin D3) 50 mcg (2,000 unit) capsule 50 mcg PO DAILY 2 [History Last Taken Unknown] metoprolol tartrate 50 mg tablet (Lopressor) 25 mg PO BID 10/21/21 [History Last Taken Unknown] nitroglycerin 0.4 mg sublingual tablet 0.4 mg sublingual Q5M PRN Pain 10/21/21 [History Last Taken Unknown] ondansetron 4 mg disintegrating tablet 4 mg PO TID PRN PRN nausea and vomiting #21 tabs 10/21/21 [Rx Last Taken Unknown] Allergy/AdvReac Type Severity Reaction Status Date / Time diazepam [From Valium] Allergy Unknown Verified 09/01/22 18:59 Gadolinium-MRI Contrast Allergy Unknown Verified 09/01/22 18:59 Medium Iodinated Contrast Media Allergy NEEDS Verified 09/01/22 18:59 FOLLOW-UP vancomycin Allergy Unknown Verified 09/01/22 18:59 Family History Other Heart disease Surgical History Mitral valve replaced Social History Smoking Status: Current every day smoker tobacco type: cigarettes alcohol intake: never ROS ROS Narrative As in HPI Physical Exam Narrative Alert and oriented x3, no apparent distress S1, S2, RRR Diminished breath sounds with faint expiratory wheezing Abdomen soft, nontender Trace edema bilateral legs Right arm AV fistula positive thrill and bruit Lab / Micro Data Result Diagrams: 09/02/22 05:00 09/02/22 05:00 Labs: Laboratory Results - last 24 hr 09/01/22 19:15: WBC 6.5, RBC 3.05 L, Hgb 11.0 L, Hct 32.3 L, MCV 105.9 H, MCH 36.1 H, MCHC 34.1, RDW Std Deviation 57.2 H, RDW Coeff of Raheel 14.6, Plt Count 108 L, MPV 13.3 H, Immature Gran % (Auto) 0.500, Neut % (Auto) 77.9 H, Lymph % (Auto) 14.7 L, [place] % (Auto) 5.2, Eos % (Auto) 1.2, Baso % (Auto) 0.5, Absolute Neuts (auto) 5.1, Absolute Lymphs (auto) 0.95, Nucleated RBC % 0.5 09/01/22 19:15: Sodium 129 L, Potassium 5.2 H, Chloride 88 L, Carbon Dioxide 26.0, Anion Gap 15, BUN 78 H, Creatinine 14.40 H*, Estim Creat Clear Calc 3.84, Est GFR (MDRD) Af Amer 3 L, Est GFR (MDRD) Non-Af 3 L, BUN/Creatinine Ratio 5.4 L, Glucose 92, Calcium 7.8 L, Troponin I High Sens 4046 H* 09/01/22 19:15: Lactic Acid 2.0 09/01/22 23:05: Troponin I High Sens 3402 H* 09/01/22 23:05: Lactic Acid 1.8 09/02/22 00:53: Troponin I High Sens 3217 H* 09/02/22 05:00: WBC 6.2, RBC 2.96 L, Hgb 10.6 L, Hct 32.1 L, MCV 108.4 H, MCH 35.8 H, MCHC 33.0, RDW Std Deviation 57.6 H, RDW Coeff of Raheel 14.6, Plt Count 112 L, MPV 13.4 H, Immature Gran % (Auto) 0.300, Neut % (Auto) 69.1, Lymph % (Auto) 21.5, [place] % (Auto) 5.9, Eos % (Auto) 2.9, Baso % (Auto) 0.3, Absolute Neuts (auto) 4.3, Absolute Lymphs (auto) 1.34, Nucleated RBC % 0.5 09/02/22 05:00: Sodium 127 L, Potassium 5.6 H, Chloride 89 L, Carbon Dioxide 24.0, Anion Gap 14, BUN 83 H, Creatinine 14.80 H*, Estim Creat Clear Calc 3.74, Est GFR (MDRD) Af Amer 3 L, Est GFR (MDRD) Non-Af 3 L, BUN/Creatinine Ratio 5.6 L, Glucose 94, Calcium 7.1 L, Phosphorus 7.8 H, Magnesium 2.4, Triglycerides 151, Cholesterol 84, LDL Cholesterol 26, VLDL Cholesterol 30, HDL Cholesterol 28 L 09/02/22 05:00: Troponin I High Sens 2852 H* Micro: Microbiology 09/01/22 19:23 Nasal Secretion SARS-CoV-2 & FLU Antigen (Rapid) - Final Influenzae B Radiology Impression Chest X-Ray 09/01/22 19:36 IMPRESSION: Minor scarring or subsegmental atelectasis in the lower lobes. No gross infiltration or pulmonary edema. Electronically Signed: Betito Reinoso MD at 20:06 EDT , Echocardiogram 09/02/22 08:20 Interpretation Summary Normal LV size. Left ventricular systolic function is normal. The estimated ejection fraction is 53 %. Pulmonary artery systolic pressure is 36 mmHg. Ordering Physician: Jesus Fernandez Performed By: Ko Polo RCS
--- NOTE | 2022-09-02 18:49 | DIALYSIS ---
Hemodialysis x 3.5hrs completed. -1500ml UF. Stable t/o. Hemostasis to RAVF obtained,gauze/tape applied. pt sitting with legs dangling at side of bed. meal was set up. Report to Fidel MEADE at bedside. See HD flowsheet for full tx details.
[2022-09-03 04:05] VITALS: BP 125/62; PULSE 82; RESP 18; TEMP 36.4; O2SAT 93
[2022-09-03 06:20] LABS: Anion Gap 11 (5-15); BUN 35 mg/dL (7-18); BUN/Creat Ratio 4.2 RATIO (10-20); Calcium,Total 7.8 mg/dL (8.5-10.1); Chloride 96 mmol/L (98-107); Creatinine, Serum 8.32 mg/dL (0.55-1.02); EST Glomerular Filtration Rate 5 mL/min (>60); Est Glom Filt Rate - Afr Amer 6 mL/min (>60); Estimated Creatinine Clearance 6.65 ml/min; Glucose 89 mg/dL (74-106); Magnesium 2.3 mg/dL (1.6-2.6); Phosphorus 5.2 mg/dL (2.5-4.9); Potassium 4.4 mmol/L (3.5-5.1); Sodium Level 133 mmol/L (136-145)
[2022-09-03 07:27] VITALS: O2SAT 93
[2022-09-03] MEDS: SEVELAMER CARBONATE 800 MG TABLET 3200 MG PO ×2 (08:25→12:34)
[2022-09-03] MEDS: Aspirin 81 MG TAB.CHEW PO (08:25)
[2022-09-03 08:26] VITALS: O2SAT 94
[2022-09-03 09:07] VITALS: BP 135/76; PULSE 79; RESP 18; TEMP 36.8; O2SAT 94
--- NOTE | 2022-09-03 09:07 | PCM.PN.REN ---
Subjective Subjective Sitting on side of bed, finishing breakfast. No overnight events. Hoping to go home today. Objective Data Objective Data Vital Signs: Vital Signs Temp Pulse Resp BP Pulse Ox O2 Del Method O2 Flow Rate 97.6 F L 82 18 125/62 H 94 Room Air 2 09/03/22 04:05 09/03/22 04:05 09/03/22 04:05 09/03/22 04:05 09/03/22 08:26 09/03/22 08:26 09/03/22 01:55 Oxygen Flow Rate (L/min) 2 Oxygen Delivery Method Room Air Weight: 72.3 kg Body Mass Index (BMI) 25.7 Intake & Output: Intake and Output for Last 24 Hours 09/01/22 09/02/22 09/03/22 23:59 23:59 23:59 Intake Total 420 / 420 Output Total 1500 / 1500 0 / 0 Balance -1080 / -1080 0 / 0 Lab / Micro Data Result Diagrams: 09/02/22 05:00 09/03/22 05:15 Labs: Laboratory Results - last 24 hr 09/03/22 05:15: Sodium 133 L, Potassium 4.4, Chloride 96 L, Carbon Dioxide 26.0, Anion Gap 11, BUN 35 H, Creatinine 8.32 H*, Estim Creat Clear Calc 6.65, Est GFR (MDRD) Af Amer 6 L, Est GFR (MDRD) Non-Af 5 L, BUN/Creatinine Ratio 4.2 L, Glucose 89, Calcium 7.8 L, Phosphorus 5.2 H, Magnesium 2.3 Micro: Microbiology 09/01/22 19:23 Nasal Secretion SARS-CoV-2 & FLU Antigen (Rapid) - Final Influenzae B Radiography Diagnostic Testing: Radiology Impression Echocardiogram 09/02/22 08:20 Interpretation Summary Normal LV size. Left ventricular systolic function is normal. The estimated ejection fraction is 53 %. Pulmonary artery systolic pressure is 36 mmHg. Ordering Physician: Jesus Fernandez Performed By: Ko Polo RCS Physical Exam Narrative Alert and oriented x3, no apparent distress S1, S2, RRR Diminished breath sounds, no wheezing or rales Abdomen soft, nontender Trace edema bilateral legs Right arm AV fistula positive thrill and bruit Assessment & Plan Assessment/Plan (1) Influenza B: (2) ESRD (end stage renal disease): (3) Elevated troponin: (4) Hyperkalemia: PLAN: Plan This is a 62-year-old female with past medical history significant for mitral valve repair/replacement, permanent pacemaker implantation, ESRD on hemodialysis Tuesday who presented to emergency room with complaints of feeling unwell, tested positive for influenza B also noted to have elevated troponin. -ESRD on hemodialysis Tuesday. Patient tolerated dialysis yesterday on 2K bath. She is hoping for discharge to home today. Patient can either dialyze in hospital before discharge or to go to her outpatient dialysis center. Discussed this with patient. She voiced understanding. - anemia of chronic disease, hemoglobin is 10.6. We will monitor hemoglobin trends. - Influenza B. On Tamiflu. Blood cultures drawn and pending. -Detectable troponin; cardiology consulted. Echo: Normal LV size, left ventricular systolic function normal, EF 53%. -Disposition; patient hoping to go home today. If patient is discharged to home she can either dialyze in hospital before discharge or arrangements to be made to dialyze at kidney center either this evening or tomorrow morning.
[2022-09-03] MEDS: Folic Acid/Vitamin B Comp W-C 1 Capsule 1 CAP PO (09:10)
[2022-09-03] MEDS: Cholecalciferol (VIT D3) 25 MCG TABLET (1,000 UNITS) 50 MCG PO (09:10)
[2022-09-03] MEDS: Oseltamivir Phosphate 30 MG Capsule PO (09:10)
[2022-09-03] MEDS: guaiFENesin 1,200 MG Tablet 1200 MG PO (09:11)
--- NOTE | 2022-09-03 10:08 | DCINST_ITS ---
Discharge Instructions Diet Discharge Diet: Low fat / Low cholesterol and Renal Diet Activity Discharge Activity: Return to Normal Activity Dressing / Incision Call your doctor if you observe: Fever of 101 or Higher, Shortness of breath, Dizziness, Fainting spells, Swelling in the ankles, Chest pain and Increased palpitations (irregular heartbeat) Follow Up Care Test Results: Test results from this visit will be discussed in further detail at your follow- up appointment, if applicable. Discharge Plan Admission Admit Date/Time: 09/01/22 20:37 Attending Provider: Channing Harvey Primary Care Provider: Mayte Ruby,Sarah Primary Consulting Providers: Jesus Fernandez ; Kia Lara ; Satya Haney Instructions Additional Instructions / Restrictions: Follow-up with nephrology as an outpatient and a BMP to make sure that your renal function returns to baseline Discharge Orders/Prescriptions Prescriptions: Continued aspirin 81 mg tablet,chewable 81 mg PO DAILY atorvastatin 10 MG tablet 10 mg PO DAILY sevelamer carbonate [Renvela] 800 MG tablet 3,200 mg BC TID Rx Instructions: with meals Nephrocaps Qt 1 EACH tablet,disintegrating 1 ea PO DAILY metoprolol tartrate [Lopressor] 50 mg Tablet 25 mg PO BID nitroglycerin 0.4 mg Tablet, Sublingual 0.4 mg SUBLINGUAL Q5M PRN (Reason: Pain) Rx Instructions: do not exceed 3 doses per episode cholecalciferol (vitamin D3) 50 mcg (2,000 unit) Capsule 50 mcg PO DAILY ondansetron 4 mg tablet,disintegrating 4 mg PO TID PRN PRN (Reason: nausea and vomiting) Qty: 21 0RF Referrals / Follow Up: Care Physician,No Primary [Primary Care Provider] - [facility] Doctor,Out of [Non-Staff] - Disposition Disposition (needs filled in before D/C Order can be placed): Home, Self Care
--- NOTE | 2022-09-03 10:32 | CASEMGMT ---
DESHAUN HARDY called [facility] to see if patient can discharge and go to HD today. Per Shira, if patient is here by noon they can squeeze the patient in. Per Shira at [facility] they are full tomorrow. DESHAUN HARDY back to patient's room to discuss discharge to HD at Noon. Per patient she has no ride to get to dialysis by noon and she is adamant that she will stay here and get dialysis. DESHAUN HARDY attempted to discuss different alternatives for transportation or see if she had other friends or family but patient refused and stated, everyone is working. Patient declined further needs or concerns at discharge. DESHAUN HARDY updated nursing. DESHAUN HARDY also updated motor vehicle salesperson CIARA Wolf.
[2022-09-03 10:43] VITALS: O2SAT 92; O2SAT 95
--- NOTE | 2022-09-03 11:04 | PCM.DC.SUM ---
Providers Date of Admission: 09/01/22 Primary Care Physician: No Primary Care Phys Consultations 09/01/22 21:43 Consult: Cardiology Routine Consulting Provider: Jesus Fernandez Reason for Consult: Elevated troponin EMERGENT Consult: No MD Notified: Yes Date Notified: 09/01/22 Time Notified: 20:46 Method of Notification: ED Physician Initiated Consult: Nephrology Routine Consulting Provider: Kia Lara Reason for Consult: End-stage renal disease on dialysis EMERGENT Consult: No MD Notified: Yes Date Notified: 09/02/22 Time Notified: 06:02 Method of Notification: Answering Service Reason For Visit: INFLUENZA B, ELEVATED TROPONIN Diagnosis Discharge Diagnosis (1) Influenza B: Status: Acute Code(s): J10.1 - Influenza due to other identified influenza virus with other respiratory manifestations (2) ESRD (end stage renal disease): Status: Acute Code(s): N18.6 - End stage renal disease (3) Elevated troponin: Status: Acute Code(s): R77.8 - Other specified abnormalities of plasma proteins (4) Hyperkalemia: Status: Acute Code(s): E87.5 - Hyperkalemia Medications at Discharge Home Medications aspirin 81 mg chewable tablet 81 mg PO DAILY 06/10/17 atorvastatin 10 mg tablet 10 mg PO DAILY 06/28/18 Bcomplex-C #13-folic acid 1 mg-vit D3 1,750 unit disintegrating tablet (Nephrocaps Qt) 1 ea PO DAILY 07/07/18 sevelamer carbonate 800 mg tablet (Renvela) 3,200 mg BC TID 07/07/18 cholecalciferol (vitamin D3) 50 mcg (2,000 unit) capsule 50 mcg PO DAILY 10/21/21 metoprolol tartrate 50 mg tablet (Lopressor) 25 mg PO BID 10/21/21 nitroglycerin 0.4 mg sublingual tablet 0.4 mg sublingual Q5M PRN Pain 10/21/21 ondansetron 4 mg disintegrating tablet 4 mg PO TID PRN PRN nausea and vomiting #21 tabs 10/21/21 Hospital Course Operations None Procedures 2-D Echocardiogram Summary of Care Provided Minutes Spent on Discharge: 36 Hospital Course: Per HPI: KAYLEE MANTILLA, is a 62 F with a significant history of kidney transplant that did not work; tobacco abuse; mitral valve repair 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 Associated with her symptoms is cough.? Typically her cough is nonproductive.? Occasionally her cough is productive.? She does not know the color of his sputum.? She reports fever and chills.? She reports highest home temperature of 101.8 Fahrenheit.? 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 At the emergency department patient tested positive for influenza B. ? However patient reportedly received vaccination for influenza. On presentation to the emergency department patient troponin was severely elevated.? However patient denies chest pain.? Of note patient's schedule for dialysis is Mondays, Wednesdays and Fridays. ? However prior to presentation patient missed 2 sessions of dialysis because of her sickness.? Dialysis instructed patient to come to the emergency department for further evaluation and treatment. Hospital Course: 1. Acute hypoxic insufficiency secondary to influenza B/a type II non-STEMI from hypoxia and demand ischemia ? She did test positive for influenza B, COVID is negative ? Case discussed with cardiology they feel that her troponin elevation is due to demand ischemia from her hypoxia as well as her renal failure causing elevation of her troponin will continue with medical management, appreciate their assistance ? Blood cultures are pending but so far negative ?She denies any chest pain, echo unremarkable with a normal EF ? She states that regardless she is going home today. I discussed with her the risks and benefits of discharge and she expressed understanding of those risks. I discussed with her that it would be beneficial if she would at least stay to have dialysis done though she would be able to get dialysis done this evening at her normal institution or they have spots tomorrow morning. She appears fairly apathetic. Ambulatory pulse ox did not demonstrate a need for oxygen on discharge. 2. CAD status post CABG/mitral valve replacement/HTN/HLD ? Appreciate cardiology assistance ? Continue with Lipitor ? Can resume her blood pressure medication on discharge ? Continue with aspirin 3. End-stage renal disease status post failed renal transplant ? She is supposed be on dialysis every MWF however she missed her last 2 dialysis treatments because of feeling sick ? Her creatinine is over 14 and her phosphorus is over 7 ? Currently her creatinine is down to 8 after dialysis yesterday she would benefit from having dialysis today as well but she is adamant about going home Physical Exam Narrative General: Alert, Oriented x3, Cooperative, no acute distress HEENT: Atraumatic, PERRLA, EOMI, Normocephalic Oral: Moist Mucosa Neck: Supple, No JVD Lungs: Diminished, Normal air movement, No rhonchi, No wheeze, No rales, coarse Cardiovascular: Regular rate, Regular Rhythm, Normal S1, Normal S2, No murmurs Abdomen: Soft, Non Tender, Non-Distended, No Hepato-splenomegaly Extremities: No edema, Capillary Refill Less than 3 Seconds Skin: No rashes, No breakdown Musculoskeletal: No Tenderness to Palpation of Joints or Extremities Neurological: Motor Exam 5/5 strength throughout, Sensory exam intact to light touch and pain Psych/Mental Status: Flat affect Weight / BMI Weight Weight: 159 lb 6.307 oz Body Mass Index (BMI) 25.7 ABG / Lab / Microbiology Data Result Diagrams: 09/02/22 05:00 09/03/22 05:15 Laboratory: Laboratory Results - last 24 hr 09/03/22 05:15: Sodium 133 L, Potassium 4.4, Chloride 96 L, Carbon Dioxide 26.0, Anion Gap 11, BUN 35 H, Creatinine 8.32 H*, Estim Creat Clear Calc 6.65, Est GFR (MDRD) Af Amer 6 L, Est GFR (MDRD) Non-Af 5 L, BUN/Creatinine Ratio 4.2 L, Glucose 89, Calcium 7.8 L, Phosphorus 5.2 H, Magnesium 2.3 Microbiology: Microbiology 09/01/22 19:23 Nasal Secretion SARS-CoV-2 & FLU Antigen (Rapid) - Final Influenzae B Radiography Diagnostic Testing: Radiology Impression Echocardiogram 09/02/22 08:20 Interpretation Summary Normal LV size. Left ventricular systolic function is normal. The estimated ejection fraction is 53 %. Pulmonary artery systolic pressure is 36 mmHg. Ordering Physician: Jesus Fernandez Performed By: Brodwolf, Ko, RCS D/C Instructions Discharge Diet: Low fat / Low cholesterol and Renal Diet Call your doctor if you observe: Fever of 101 or Higher, Shortness of breath, Dizziness, Fainting spells, Swelling in the ankles, Chest pain and Increased palpitations (irregular heartbeat) Meaningful Use Info Meaningful Use Diagnoses (Choose all that apply): None applicable Discharge Plan Admission Admit Date/Time: 09/01/22 20:37 Attending Provider: Channing Harvey Primary Care Provider: Care Physician,No Primary Consulting Providers: Jesus Fernandez ; Kia Lara ; Satya Haney Instructions Additional Instructions / Restrictions: Follow-up with nephrology as an outpatient and a BMP to make sure that your renal function returns to baseline Discharge Orders/Prescriptions Prescriptions: Continued aspirin 81 mg tablet,chewable 81 mg PO DAILY atorvastatin 10 MG tablet 10 mg PO DAILY sevelamer carbonate [Renvela] 800 MG tablet 3,200 mg BC TID Rx Instructions: with meals Nephrocaps Qt 1 EACH tablet,disintegrating 1 ea PO DAILY metoprolol tartrate [Lopressor] 50 mg Tablet 25 mg PO BID nitroglycerin 0.4 mg Tablet, Sublingual 0.4 mg SUBLINGUAL Q5M PRN (Reason: Pain) Rx Instructions: do not exceed 3 doses per episode cholecalciferol (vitamin D3) 50 mcg (2,000 unit) Capsule 50 mcg PO DAILY ondansetron 4 mg tablet,disintegrating 4 mg PO TID PRN PRN (Reason: nausea and vomiting) Qty: 21 0RF Referrals / Follow Up: Care Physician,No Primary [Primary Care Provider] - [facility] Doctor,Out of [Non-Staff] - Disposition Disposition (needs filled in before D/C Order can be placed): Home, Self Care Charges/Coding Visit Charges Inpatient E&M: 36685 Disch Hosp >30min
--- NOTE | 2022-09-03 12:02 | PHA.DC.MR ---
Pharmacy Service has performed discharge medication reconciliation for this patient. The patient's discharge medication list was reviewed for discrepancies and discrepancies were resolved. Home Medications aspirin 81 mg chewable tablet 81 mg PO DAILY 06/10/17 atorvastatin 10 mg tablet 10 mg PO DAILY 06/28/18 Bcomplex-C #13-folic acid 1 mg-vit D3 1,750 unit disintegrating tablet (Nephrocaps Qt) 1 ea PO DAILY 07/07/18 sevelamer carbonate 800 mg tablet (Renvela) 3,200 mg BC TID 07/07/18 cholecalciferol (vitamin D3) 50 mcg (2,000 unit) capsule 50 mcg PO DAILY 10/21/21 metoprolol tartrate 50 mg tablet (Lopressor) 25 mg PO BID 10/21/21 nitroglycerin 0.4 mg sublingual tablet 0.4 mg sublingual Q5M PRN Pain 10/21/21 ondansetron 4 mg disintegrating tablet 4 mg PO TID PRN PRN nausea and vomiting #21 tabs 10/21/21
[2022-09-03 17:40] VITALS: BP 113/32; PULSE 80
--- NOTE | 2022-09-03 17:44 | DIALYSIS ---
Hemodialysis x 3 hours (stopped 30 minutes early r/t patient's insistence). Net UF +300 ml r/t boluses needed to alleviate hypotension. Blood returned to patient. 16g needles removed from RUE AVF, hemostasis achieved. RN report at bedside.
== END 2022-09-03 19:02 | disposition home or self-care (01) | DRG 193 ==
LOC: ED 21:03 → PCU 21:06
PROVIDERS: Admitting Provider Hospitalist; Emergency Provider Emergency Medicine; Visit Provider Family Medicine
DX: J10.1 Influenza due to other identified influenza virus with other respiratory manifestations (principal); N18.6 End stage renal disease; I21.A1 Myocardial infarction type 2; Z94.2 Lung transplant status; I12.0 Hypertensive chronic kidney disease with stage 5 chronic kidney disease or end stage renal disease; E87.1 Hypo-osmolality and hyponatremia; Z94.0 Kidney transplant status; D63.8 Anemia in other chronic diseases classified elsewhere; I95.9 Hypotension, unspecified; Z99.2 Dependence on renal dialysis; I25.10 Atherosclerotic heart disease of native coronary artery without angina pectoris; E87.5 Hyperkalemia; E78.5 Hyperlipidemia, unspecified; F17.210 Nicotine dependence, cigarettes, uncomplicated; R09.02 Hypoxemia; Z20.822 Contact with and (suspected) exposure to COVID-19; Z79.82 Long term (current) use of aspirin; Z79.899 Other long term (current) drug therapy; Z95.0 Presence of cardiac pacemaker; Z95.1 Presence of aortocoronary bypass graft; Z95.3 Presence of xenogenic heart valve
CPT/HCPCS: 36415; 71045; 80048; 80061; 83605; 83735; 84100; 84484; 85025; 87040; 87428; 90937; 93005; 93306; 94668; 94762; 97802; 99252; 99285; A4216; G0257; G0463

== ENCOUNTER 2025-03-18 10:25 | Outpatient (CLI) | payer MEDICARE, SELFPAY ==
[2025-03-18 12:17] LABS: Ammonia 22.3 umol/L (11-51)
[2025-03-18 12:18] LABS: Hematocrit 33.7 % (37-47); Hemoglobin 11.2 g/dL (12.0-15.0); Mean Corp Hgb Conc 33.2 g/dL (32-36); Mean Corpuscular Volume 110.1 fL (81-99); Mean Platelet Vol. 11.2 fl (6.2-12.0); Platelet Count 111 K/mm3 (150-450); RBC Distribution Width CV 13.7 % (11.6-14.6); RBC Distribution Width SD 56.0 fl (35.1-43.9); Red Blood Count 3.06 M/mm3 (4.2-5.4); White Blood Count 2.9 K/mm3 (4.4-11.0)
[2025-03-18 12:46] LABS: AST(SGOT) 31 U/L (<=31); Alanine Aminotransfer ALT/SGPT 14 U/L (<=34); Albumin, Serum 3.1 g/dL (3.4-4.8); Alkaline Phosphatase 352 U/L (35-104); Anion Gap 12 (5-15); BUN 20 mg/dL (4-19); BUN/Creat Ratio 4.3 RATIO (10-20); CRP 16.20 mg/L (0.0-3.0); Calcium,Total 9.2 mg/dL (7.6-11.0); Carbon Dioxide 27.3 mmol/L (21.0-32.0); Chloride 94 mmol/L (98-108); Cholesterol 159 mg/dL (<=200); Globulin 3.6 g/dL (2.2-4.2); Glucose 69 mg/dL (70-99); Low Density Lipoprotein Calc. 50 mg/dL; Magnesium 2.4 mg/dL (1.5-2.2); Potassium 5.0 mmol/L (3.3-5.1); Triglycerides 80 mg/dL; Very Low Density Lipoprotein 16 mg/dL (5-40); Vitamin B12 518 pg/mL (180-914); cholesterol:hdl ratio screen 1.68
[2025-03-19 14:09] LABS: ANTINUCLEAR ANTIBODIES DIRECT Negative (Negative); Vitamin D 1,25-Dihydroxy 32.8 pg/mL (24.8-81.5)
[2025-03-21 10:08] LABS: Folate, Hemolysate Test 386.0 ng/mL (Not Estab.); Folate, RBC (Hct) Test 33.9 % (34.0-46.6); Folates, RBC Test 1139 ng/mL (>498); VITAMIN B6 1.8 ug/L (3.4-65.2); Vitamin B1, Thiamine 93.6 nmol/L (66.5-200.0)
== END 2025-03-18 23:59 | disposition home or self-care (01) ==
LOC: MTLAB 10:27
PROVIDERS: Referring Provider Psychiatry & Neurology Neurology; Visit Provider Psychiatry & Neurology Neurology
DX: G62.9 Polyneuropathy, unspecified (principal); F32.A Depression, unspecified; F32.4 Major depressive disorder, single episode, in partial remission; I70.90 Unspecified atherosclerosis
CPT/HCPCS: 36415; 80053; 80061; 82140; 82607; 82652; 82747; 83735; 83883; 84207; 84425; 84443; 85014; 85027; 85652; 86038; 86140; 86225

== ENCOUNTER → 2025-04-22 | Outpatient (CLI) | payer MEDICARE, SELFPAY ==
[2025-04-22] VITALS (8 sets, daily range): BP systolic 61–72; BP diastolic 28–36; PULSE 80–86; RESP 18; O2SAT 92–98
--- NOTE | 2025-04-22 13:07 | MRI_ITS ---
PROCEDURE: SPINE CERVICAL (ROUTINE); SPINE THORACIC (ROUTINE) 04/22/2025 REASON FOR EXAM: GAIT DISORDER ASSESS FOR CERVICAL MYELOPATHY; GAIT DISORDER; NUMBNESS; ASSESS FOR MYELOPATHY TECHNIQUE: Procedure Code: MRISPC; MRISPT Modality: MR Procedure: SPINE CERVICAL (ROUTINE); SPINE THORACIC (ROUTINE) Multiplanar and multisequence images were obtained without IV contrast administration. COMPARISON: NONE AVAILABLE. FINDINGS: MRI CERVICAL SPINE: The visualized posterior fossa contents appear within normal limits. The normal cervical lordosis is maintained. The atlantooccipital and atlantoaxial joints appear normally aligned. The cervical vertebral bodies are normal in height. The cervical vertebral bodies are normal in alignment. The cervical bone marrow signal is within normal limits. Multilevel disc desiccation. There is no evidence of cervical spinal cord signal abnormality. C2-C3: No significant spinal canal stenosis or neural foraminal narrowing. C3-C4: Small central disc protrusion. No significant spinal canal stenosis or neural foraminal narrowing. C4-C5: Central disc protrusion contributes to focal moderate stenosis with indentation of the ventral cord. No significant neural foraminal narrowing. C5-C6: Central disc protrusion. Mild spinal canal stenosis. No significant neural foraminal narrowing. C6-C7: No significant spinal canal stenosis or neural foraminal narrowing. C7-T1: Right paracentral disc extrusion with mild superior migration contributes to mild spinal canal stenosis. There is indentation of the ventral cord. No significant neural foraminal narrowing. MRI THORACIC SPINE: The thoracic kyphosis is exaggerated. The thoracic vertebral bodies are normal in height. The thoracic vertebral bodies are normal in alignment. The thoracic bone marrow signal is within normal limits. There is no evidence of thoracic spinal cord signal abnormality. There is no high-grade spinal canal or neural foraminal stenosis in the thoracic spine. T7-T8: Left paracentral disc protrusion indents the ventral thecal sac. Right pleural effusion versus lung consolidation. MRI/Spine Cervical (Routine) IMPRESSION: 1. No signal abnormality in the cervical or thoracic spinal cord. 2. Cervical spondylosis most prominent at C4-C5. 3. Thoracic spondylosis without high-grade spinal canal or neural foraminal anup nosis. 4. Right pleural effusion versus right lung consolidation. Recommend CT of the chest for further characterization. Reading Location: [id number]
--- NOTE | 2025-04-22 13:07 | MRI_ITS ---
PROCEDURE: BRAIN WITHOUT CONTRAST 04/22/2025 REASON FOR EXAM: HEADACHE; GAIT DISORDER TECHNIQUE: Procedure Code: MRIBR Modality: MR Procedure: BRAIN WITHOUT CONTRAST Multiplanar and multisequence images were obtained. COMPARISON: None available. FINDINGS: No acute infarct or hemorrhage. Scattered nonspecific foci of periventricular and subcortical T2/FLAIR white matter hyperintensities in the cerebral hemispheres likely reflect chronic microvascular ischemic changes. There are scattered foci of magnetic susceptibility in the cerebral hemispheres and cerebellum compatible with chronic microhemorrhages. No extra-axial fluid collection. No significant mass effect or herniation of the brain. The ventricular system and sulci/fissures are within expected limits of size and configuration for the patient's stated age. The basal cisterns are patent. The intracranial large vessel arterial flow voids are maintained. The mastoid air cells clear. The paranasal sinuses are predominately clear. The orbits are unremarkable. The calvarial bone marrow signal is within normal limits. MRI/Brain without Contrast IMPRESSION: No acute infarct, hemorrhage, or significant mass effect. Chronic microvascular ischemic changes. Reading Location: [id number]
--- NOTE | 2025-04-22 13:07 | MRI_ITS ---
PROCEDURE: SPINE LUMBAR (ROUTINE) 04/22/2025 REASON FOR EXAM: GAIT DISORDER; LBP; RLE RADICULOPATHY TECHNIQUE: Procedure Code: MRISPL Modality: MR Procedure: SPINE LUMBAR (ROUTINE) COMPARISON: None available. FINDINGS: For the purposes of this report, the most caudal rectangular vertebral body will be designated L5. The next most caudal trapezoidal shaped vertebral body will be designated S1. The intervening disc at the lumbosacral angle is designated L5-S1. The lumbar lordosis is exaggerated. The lumbar vertebral bodies are normal in height. The lumbar vertebral bodies are normal in alignment. There is a T2/STIR hyperintense lesion at the L1 vertebral body which is incompletely characterized. The lumbar bone marrow signal is otherwise within normal limits. Multilevel disc desiccation. There is no evidence of signal abnormality in the imaged distal spinal cord. The conus medullaris terminates at the level of L1-L2. T12-L1: No significant spinal canal stenosis or neural foraminal narrowing. L1-L2: No significant spinal canal stenosis or neural foraminal narrowing. L2-L3: No significant spinal canal stenosis or neural foraminal narrowing. L3-L4: No significant spinal canal stenosis or neural foraminal narrowing. L4-L5: No significant spinal canal stenosis or neural foraminal narrowing. L5-S1: Disc bulge. No significant spinal canal stenosis or neural foraminal narrowing. Fatty atrophy of the posterior paraspinal muscles. Tarlov cysts. There is perihepatic ascites (best demonstrated on series 25.3). MRI/Spine Lumbar (Routine) IMPRESSION: 1. No high-grade spinal canal or neural foraminal stenosis in the lumbar spine. 2. Incompletely characterized T2/STIR hyperintense lesion at the L1 vertebral b anette. Differential may include an atypical osseous hemangioma. 3. Perihepatic ascites. Reading Location: [id number]
== END | disposition home or self-care (01) ==
PROVIDERS: Referring Provider Psychiatry & Neurology Neurology; Visit Provider Psychiatry & Neurology Neurology
DX: R26.9 Unspecified abnormalities of gait and mobility (principal); M54.2 Cervicalgia; R20.0 Anesthesia of skin; M54.16 Radiculopathy, lumbar region; M54.50 Low back pain, unspecified
CPT/HCPCS: 70551; 72141; 72146; 72148

== ENCOUNTER → 2025-04-30 | Outpatient (CLI) | payer MEDICARE, SELFPAY ==
--- NOTE | 2025-04-30 09:11 | ART_ITS ---
Reason For Study Reason For Study: BILATERAL ABSENT PEDAL PULSES Procedure A bilateral lower extremity continuous wave Doppler with analog waveform analysis and ankle brachial indexes. Left Segmental Pressures Left brachial= 170mmHg. Left posterior tibial artery = >254mmHg. Left dorsalis pedis artery = 73mmHg. Left digit = 22 mmHg. The left posterior tibial artery waveforms are monophasic. The left dorsalis pedis waveforms are monophasic. Right Segmental Pressures Right posterior tibial artery = >254mmHg. Right dorsalis pedis artery = 78mmHg. Right digit = 33 mmHg. The right posterior tibial artery waveforms are monophasic. The right dorsalis pedis waveforms are monophasic. Indices The right ankle brachial index by the posterior tibial artery is N/C. The right ankle brachial index by the dorsalis pedis is 0.46. The right digital-brachial index is 0.19. The left ankle brachial index by the posterior tibial artery is N/C. The left ankle brachial index by the dorsalis pedis is 0.43. The left digital-brachial index is 0.13. VL/Ankle Brachial Index Interpretation Summary Right YONG 0.46, severe arterial insufficiency. Doppler/PVR waveforms of the rig ht ankle moderately diminished at rest. Left YONG 0.43, severe arterial insufficiency. Doppler/PVR waveforms of the left ankle moderately diminished at rest. Ordering Physician: Doyle Conner Referring Physician: N/A Performed By: Jose David Steiner RVZion
--- NOTE | 2025-04-30 10:53 | NEURO_ITS ---
NCS and/or EMG Patient Report Ordering Doctor: Doyle Conner DATE OF SERVICE: 04/30/25 Clinical Summary: 64 year old female patient with symptoms of neck pain who has been referred for EMG to evaluate for any radiculopathies and nerve entrapments. 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 Nerve Conduction Studies Summary: Nerve conduction studies were performed in the bilateral upper extremities. The median-D2 SNAP distal latency was prolonged bilaterally. The ulnar-D5 SNAP distal latency was prolonged bilaterally. Otherwise, nerve conductions in the forearm and elbow segments were limited/hampered by the presence of fistulas bilaterally. Needle Examination Summary: Only the right deltoid and triceps muscles were sampled to evaluate for motor unit action potentials as the patient otherwise was not able to tolerate and declined any further needle examination. Impression: This is an incomplete electrodiagnostic study. The patient declined the needle examination beyond just the right deltoid and t riceps muscles. There were also technical constraints due to the presence of the fistulas which hampered and/or limited nerve conductions in the forearms and elbow segments bilaterally. Based on the data we were able to obtain, there is electrodiagnostic evidence of at least mild, bilateral median mononeuropathies at the wrist (carpal tunnel syndrome). We were unable to fully rule out electrodiagnostically the presence of a right/left cervical radiculopathy or ulnar mononeuropathy. Multi Select Codes Neurology Neurology Interp Codes: 23129-43 Musc tst done w/nerv tst feldman (interp) (1), 62860-37 Musc test done w/n test comp (interp) and 52518-42 Nrv cndj test 13/> studies (interp)
== END | disposition home or self-care (01) ==
LOC: PSN 09:10
PROVIDERS: Referring Provider Psychiatry & Neurology Neurology; Visit Provider Psychiatry & Neurology Neurology
DX: R29.898 Other symptoms and signs involving the musculoskeletal system (principal); M54.2 Cervicalgia; R09.89 Other specified symptoms and signs involving the circulatory and respiratory systems
CPT/HCPCS: 93922; 95885; 95913